=== PATIENT | female | born 1970 | race Caucasian/White ===

== ENCOUNTER 2017-10-14 21:58 | Emergency (ER) | payer OTHER ==
[~2017-10-14] VITALS: Ht 167.6 cm; Wt 77.6 kg
[~2017-10-14 21:58] MED LIST: B-CO-5 OR; CALC0.5C PO; CIPR-217 PO; FER325T PO; FURO80TA3 PO; HYDR-2601 PO; INSLANTI SC; INSLISPI SC; LISI-275 PO; LOVA20TA4 PO; OMEP20CA74 OR; PREG75CA PO; SODB650T PO
[2017-10-14 22:05] VITALS: BP 160/93
== END 2017-10-15 04:43 | disposition home or self-care (01) ==
LOC: ER 21:58
DX: S90.121A Contusion of right lesser toe(s) without damage to nail, initial encounter (principal); E11.40 Type 2 diabetes mellitus with diabetic neuropathy, unspecified; N18.6 End stage renal disease; E11.22 Type 2 diabetes mellitus with diabetic chronic kidney disease; K21.9 Gastro-esophageal reflux disease without esophagitis; I12.0 Hypertensive chronic kidney disease with stage 5 chronic kidney disease or end stage renal disease; E78.5 Hyperlipidemia, unspecified; Z79.4 Long term (current) use of insulin; X58.XXXA Exposure to other specified factors, initial encounter; Y93.89 Activity, other specified; Y92.89 Other specified places as the place of occurrence of the external cause; Y99.8 Other external cause status
CPT/HCPCS: 73630; 82962

== ENCOUNTER 2019-04-14 00:29 | Emergency (ER) | payer OTHER ==
[~2019-04-14] VITALS: Ht 165.1 cm; Wt 70.3 kg
[2019-04-14] MEDS ORDERED: SODIUM CHLORIDE 0.9% 1,000 ML IV ONE ×2 (02:45→03:03)
[2019-04-14 02:50] LABS: Basophils # (auto) 0 uL; Basophils % (auto) 0.5 % (0.0-2.0); Eosinophils # (auto) 0 uL; Eosinophils % (auto) 0.4 % (0.0-7.0); Hematocrit 38.5 % (36.0-46.0); Hemoglobin 12.5 g/dL (12.2-16.2); Lymphocytes # (auto) 0.3 uL; Lymphocytes % (auto) 5.1 % (10.0-50.0); Mean Corpuscular Hemoglobin 28.9 pg (28.0-32.0); Mean Corpuscular Hgb Conc. 32.5 g/dL (32.0-36.0); Mean Corpuscular Volume 88.9 fL (80.0-100.0); Monocytes # (auto) 0.7 uL; Monocytes % (auto) 10.8 % (0.0-12.0); Neutrophils # (auto) 5.1 uL; Neutrophils % (auto) 83.2 % (37.0-80.0); Nucleated Red Blood Cells % 0.2 %; Platelet Count (auto) 239 10^3/uL (140-450); Red Blood Cells 4.34 10^6/uL (4.0-5.20); Red Cell Distribution Width 15.9 % (11.8-14.3); White Blood Cell 6.1 10^3/uL (4.4-10.8)
[2019-04-14 02:57] LABS: Urine Amorphous Crystal FEW /hpf (None Seen); Urine Bacteria FEW /hpf (None Seen); Urine Blood 1+ /uL (Negative); Urine Hyaline Cast FEW /lpf (0 - 2); Urine Specific Gravity 1.018 (1.001-1.035); Urine WBC 8 /hpf (0 - 5)
[2019-04-14 02:57] LABS: Albumin 2.8 g/dL (3.4-5.0); BUN/Creatinine Ratio 14.1; Calcium 9.2 mg/dL (8.5-10.1)
[2019-04-14 03:11] LABS: Potassium 2.8 mmol/L (3.5-5.1)
[2019-04-14 03:24] LABS: Bilirubin, Total 0.4 mg/dL (0.2-1.0); Total Protein 6.9 g/dL (6.4-8.2)
[2019-04-14] MEDS ORDERED: metroNIDAZOLE 500 MG TAB PO ONE ×2 (04:00→07:45)
[2019-04-14] MEDS ORDERED: POTASSIUM CHL 20 Meq TABLET PO ONE (04:15)
[2019-04-14] MEDS ORDERED: LEVOFLOXACIN 500MG 100 ML IV ONE (04:15)
[2019-04-14] MEDS ORDERED: HYDROcodone-ACET 10/325MG TAB PO PRN (09:30)
[2019-04-14] MEDS ORDERED: SOD CHL 0.45% 1,000 ML IV SCH (09:30)
[2019-04-14] MEDS ORDERED: ONDANSETRON HCL 4 MG/2 ML VIAL IV PRN (09:30)
[2019-04-14] MEDS ORDERED: MORPHINE SULFATE 4 MG/ML SYR/VIAL IV PRN (09:30)
[2019-04-14] MEDS ORDERED: MORPHINE SULF INJ 2 MG/ML SYRINGE 1ML IV PRN (09:30)
[2019-04-14] MEDS ORDERED: VANCOMYCIN PER PHARMACY 0 MG IV SCH (09:30)
[2019-04-14] MEDS ORDERED: NITROGLYCERIN 0.4 MG SL TAB SL PRN (09:30)
[2019-04-14] MEDS ORDERED: TACROLIMUS 1 MG CAP PO SCH (10:00)
[2019-04-14] MEDS ORDERED: METOPROLOL TARTRATE 25 MG TAB PO SCH (10:00)
[2019-04-14] MEDS ORDERED: predniSONE 5 MG TAB PO SCH (10:00)
[2019-04-14] MEDS ORDERED: MYCOPHENOLATE 500 MG TAB PO SCH (10:00)
[2019-04-14] MEDS ORDERED: PANTOPRAZOLE 40 MG TAB PO SCH (10:00)
[2019-04-14] MEDS ORDERED: PREGABALIN CAPSULE 75 MG CAP PO SCH (10:00)
[2019-04-14] MEDS ORDERED: ASPirin 81 mg TAB PO SCH (10:00)
[2019-04-14] MEDS ORDERED: SODIUM CHLORIDE 0.9% 2,000 ML IV ONE (10:30)
[2019-04-14] MEDS ORDERED: SODIUM CHLORIDE 0.9% 1,000 ML IV SCH (10:30)
[2019-04-14] MEDS ORDERED: SEVELAMER 800 MG TAB PO SCH (12:00)
[2019-04-14 12:02] VITALS: BP 128/78
[2019-04-14] MEDS ORDERED: metroNIDAZOLE 500 MG TAB PO SCH (14:00)
[2019-04-14] MEDS ORDERED: ATORVASTATIN 20 MG TAB PO SCH (22:00)
[2019-04-15] MEDS ORDERED: cefTRIAXone 1GM/50ML D5W 50 ML IV SCH (09:00)
== END 2019-04-14 12:16 | disposition short-term general hospital (02) ==
LOC: EDBD 00:29 → ER 00:32 → UNDOADMIN 00:33 → TELE 00:33 → ER 12:16
DX: K52.9 Noninfective gastroenteritis and colitis, unspecified (principal); E87.6 Hypokalemia; E11.22 Type 2 diabetes mellitus with diabetic chronic kidney disease; I12.0 Hypertensive chronic kidney disease with stage 5 chronic kidney disease or end stage renal disease; N18.6 End stage renal disease; N17.9 Acute kidney failure, unspecified; K21.9 Gastro-esophageal reflux disease without esophagitis; E78.5 Hyperlipidemia, unspecified; Z90.710 Acquired absence of both cervix and uterus; Z99.2 Dependence on renal dialysis; Z79.4 Long term (current) use of insulin; Z94.0 Kidney transplant status
CPT/HCPCS: 36415; 74176; 80053; 81001; 83036; 83605; 83690; 83735; 84484; 85025; 87040; 87086; 87493; 93306; 96361; 96365; 99285; J1956; J7030; J7507; J7512; J7517

== ENCOUNTER 2019-08-20 11:02 | Emergency (ER) | payer OTHER ==
[~2019-08-20] VITALS: Ht 165.1 cm; Wt 69.9 kg
[2019-08-20 11:05] VITALS: BP 176/97
[2019-08-20 12:01] LABS: Albumin 3.3 g/dL (3.4-5.0); Anion Gap 5 (5-15); Blood Urea Nitrogen 15 mg/dL (7-18); Calcium 9.2 mg/dL (8.5-10.1); Carbon Dioxide 27 mmol/L (21-32); Chloride 109 mmol/L (98-107); Glucose 126 mg/dL (74-106); Magnesium 2.1 mg/dL (1.6-2.6); Potassium 4.1 mmol/L (3.5-5.1); Sodium 141 mmol/L (136-145)
[2019-08-20 12:06] LABS: Alanine Aminotransferase 16 U/L (13-56); Alkaline Phosphatase 82 U/L (45-117); Aspartate Aminotransferase 12 U/L (15-37); Bilirubin, Total 0.4 mg/dL (0.2-1.0); GFR African American 82 mL/min; GFR Non-African American 68 mL/min; Total Protein 7.2 g/dL (6.4-8.2)
== END 2019-08-20 12:27 | disposition left against medical advice (07) ==
LOC: ER 11:06
DX: R07.89 Other chest pain (principal); Z53.21 Procedure and treatment not carried out due to patient leaving prior to being seen by health care provider
CPT/HCPCS: 36415; 80053; 83735; 84443; 84484

== ENCOUNTER 2019-08-21 10:57 | Emergency (ER) | payer MEDICARE, OTHER ==
[~2019-08-21] VITALS: Ht 175.3 cm; Wt 77.1 kg
[~2019-08-21 10:57] MED LIST changes: -CIPR-217 PO; +CIPR500T4 PO
[2019-08-21 12:34] LABS: Basophils # (auto) 0 uL; Basophils % (auto) 0.5 % (0.0-2.0); Eosinophils # (auto) 0.1 uL; Eosinophils % (auto) 1.5 % (0.0-7.0); Hematocrit 38.2 % (36.0-46.0); Hemoglobin 12.2 g/dL (12.2-16.2); Lymphocytes # (auto) 0.4 uL; Lymphocytes % (auto) 5.7 % (10.0-50.0); Mean Corpuscular Hemoglobin 28.7 pg (28.0-32.0); Mean Corpuscular Volume 89.6 fL (80.0-100.0); Monocytes # (auto) 0.6 uL; Monocytes % (auto) 7.1 % (0.0-12.0); Neutrophils # (auto) 6.7 uL; Neutrophils % (auto) 85.2 % (37.0-80.0); Nucleated Red Blood Cells % 0.1 %; Platelet Count (auto) 254 10^3/uL (140-450); Red Blood Cells 4.26 10^6/uL (4.0-5.20); Red Cell Distribution Width 14.5 % (11.8-14.3); White Blood Cell 7.9 10^3/uL (4.4-10.8)
[2019-08-21 12:51] LABS: Albumin 3.3 g/dL (3.4-5.0); Anion Gap 7 (5-15); Blood Urea Nitrogen 15 mg/dL (7-18); Calcium 9.4 mg/dL (8.5-10.1); Carbon Dioxide 27 mmol/L (21-32); Chloride 109 mmol/L (98-107); Glucose 137 mg/dL (74-106); Potassium 3.5 mmol/L (3.5-5.1); Sodium 143 mmol/L (136-145)
[2019-08-21 12:57] LABS: Alanine Aminotransferase 16 U/L (13-56); Alkaline Phosphatase 80 U/L (45-117); Aspartate Aminotransferase 10 U/L (15-37); BUN/Creatinine Ratio 17.2; Bilirubin, Total 0.5 mg/dL (0.2-1.0); GFR African American 90 mL/min; GFR Non-African American 74 mL/min; Total Protein 7.2 g/dL (6.4-8.2)
[2019-08-21] MEDS ORDERED: SODIUM CHLORIDE 0.9% 1,000 ML IV ONE (15:01)
[2019-08-21] MEDS ORDERED: HYDROmorphone HCL 2 MG/ML VL IV ONE (15:15)
[2019-08-21] MEDS ORDERED: PROMETHAZINE HCL 25 MG/ML 1ML IV PRN (15:15)
[2019-08-21 16:07] LABS: Magnesium 1.9 mg/dL (1.6-2.6)
[2019-08-21 18:59] VITALS: BP 157/88
== END 2019-08-21 19:12 | disposition home or self-care (01) ==
LOC: EDBD 10:57 → ER 11:10
DX: K80.50 Calculus of bile duct without cholangitis or cholecystitis without obstruction (principal); K82.8 Other specified diseases of gallbladder; E44.1 Mild protein-calorie malnutrition; I25.2 Old myocardial infarction; I12.0 Hypertensive chronic kidney disease with stage 5 chronic kidney disease or end stage renal disease; E11.22 Type 2 diabetes mellitus with diabetic chronic kidney disease; N18.6 End stage renal disease; E78.5 Hyperlipidemia, unspecified; K21.9 Gastro-esophageal reflux disease without esophagitis; Z94.0 Kidney transplant status
CPT/HCPCS: 36415; 71046; 74176; 76705; 80053; 83690; 83735; 84443; 84484; 85025; 93005

== ENCOUNTER 2021-04-24 22:15 | Emergency (ER) | payer OTHER ==
[~2021-04-24] VITALS: Ht 172.7 cm; Wt 79.4 kg
[2021-04-24 23:06] LABS: Basophils # (auto) 0 10 ^3/uL (0-0.2); Basophils % (auto) 1.1 % (0.0-2.0); Eosinophils # (auto) 0 10 ^3/uL (0-0.8); Hematocrit 37.4 % (36.0-46.0); Hemoglobin 11.9 g/dL (12.2-16.2); Lymphocytes # (auto) 0.6 10 ^3/uL (0.4-5.4); Lymphocytes % (auto) 15.4 % (10.0-50.0); Mean Corpuscular Hemoglobin 28.2 pg (28.0-32.0); Mean Corpuscular Hgb Conc. 31.9 g/dL (32.0-36.0); Mean Corpuscular Volume 88.4 fL (80.0-100.0); Monocytes # (auto) 0.3 10 ^3/uL (0-1.3); Monocytes % (auto) 8.2 % (0.0-12.0); Neutrophils # (auto) 2.7 10 ^3/uL (1.6-8.6); Neutrophils % (auto) 74.3 % (37.0-80.0); Red Blood Cells 4.23 10^6/uL (4.0-5.20); Red Cell Distribution Width 15.8 % (11.8-14.3); White Blood Cell 3.6 10^3/uL (4.4-10.8)
[2021-04-24 23:21] LABS: Alanine Aminotransferase 21 U/L (13-56); Albumin 3.1 g/dL (3.4-5.0); Anion Gap 8 (5-15); Aspartate Aminotransferase 12 U/L (15-37); Blood Urea Nitrogen 22 mg/dL (7-18); Calcium 8.6 mg/dL (8.5-10.1); Carbon Dioxide 23 mmol/L (21-32); Chloride 109 mmol/L (98-107); GFR African American 68 mL/min; GFR Non-African American 56 mL/min; Glucose 301 mg/dL (74-106); Magnesium 1.9 mg/dL (1.6-2.6); Sodium 140 mmol/L (136-145)
[2021-04-24 23:24] LABS: INR 0.98 (0.9-1.15); Partial Thromboplastin Time 23.9 sec (23.6-33.0)
[2021-04-24 23:26] LABS: Alkaline Phosphatase 99 U/L (45-117); Bilirubin, Total 0.3 mg/dL (0.2-1.0); Total Protein 6.9 g/dL (6.4-8.2)
[2021-04-25 03:00] VITALS: BP 173/89
[2021-04-25] MEDS ORDERED: cloNIDine HCL 0.1 MG TAB PO ONE (04:15)
== END 2021-04-25 04:27 | disposition home or self-care (01) ==
LOC: EDBD 22:15 → ER 22:18
DX: R07.89 Other chest pain (principal); F41.9 Anxiety disorder, unspecified; K21.9 Gastro-esophageal reflux disease without esophagitis; E78.5 Hyperlipidemia, unspecified; I10 Essential (primary) hypertension; E11.22 Type 2 diabetes mellitus with diabetic chronic kidney disease; N18.6 End stage renal disease; Z90.710 Acquired absence of both cervix and uterus
CPT/HCPCS: 36415; 71045; 80053; 82962; 83735; 83880; 84443; 84484; 85025; 85610; 85730; 93005

== ENCOUNTER 2021-11-11 20:46 | Emergency (ER) | payer OTHER ==
[~2021-11-11] VITALS: Ht 167.6 cm; Wt 77.1 kg
[2021-11-11] MEDS ORDERED: SODIUM CHLORIDE 0.9% 1,000 ML IV ONE ×2 (22:15)
[2021-11-11] MEDS ORDERED: METOCLOPRAMIDE HCL 5MG/ml INJ 2ml VIAL IV ONE (22:15)
[2021-11-11 23:01] LABS: Urine Bacteria MANY /hpf (None Seen); Urine Blood Negative /uL (Negative); Urine Specific Gravity 1.022 (1.001-1.035); Urine WBC 56 /hpf (0 - 5)
[2021-11-11 23:55] LABS: Basophils # (auto) 0 10 ^3/uL (0-0.2); Basophils % (auto) 0.6 % (0.0-2.0); Eosinophils # (auto) 0 10 ^3/uL (0-0.8); Eosinophils % (auto) 0.4 % (0.0-7.0); Hematocrit 35.4 % (36.0-46.0); Hemoglobin 11.6 g/dL (12.2-16.2); Lymphocytes # (auto) 0.6 10 ^3/uL (0.4-5.4); Lymphocytes % (auto) 7.4 % (10.0-50.0); Mean Corpuscular Hemoglobin 28.7 pg (28.0-32.0); Mean Corpuscular Hgb Conc. 32.8 g/dL (32.0-36.0); Mean Corpuscular Volume 87.5 fL (80.0-100.0); Monocytes # (auto) 0.6 10 ^3/uL (0-1.3); Monocytes % (auto) 8.5 % (0.0-12.0); Neutrophils # (auto) 6.2 10 ^3/uL (1.6-8.6); Neutrophils % (auto) 83.1 % (37.0-80.0); Nucleated Red Blood Cells % 0.1 %; Red Blood Cells 4.05 10^6/uL (4.0-5.20); Red Cell Distribution Width 15.9 % (11.8-14.3); White Blood Cell 7.5 10^3/uL (4.4-10.8)
[2021-11-12] LABS: INR 0.97 (0.9-1.15); Partial Thromboplastin Time 22.8 sec (23.6-33.0)
[2021-11-12 00:13] LABS: Albumin 3.3 g/dL (3.4-5.0); Calcium 9.2 mg/dL (8.5-10.1); Potassium 4.8 mmol/L (3.5-5.1)
[2021-11-12 00:47] LABS: BUN/Creatinine Ratio 19.8; Bilirubin, Total 0.3 mg/dL (0.2-1.0); Total Protein 7.1 g/dL (6.4-8.2)
[2021-11-12] MEDS ORDERED: InsuLIN REG 1unit/0.01ml Soln (100units/ml) SC ONE (01:00)
[2021-11-12 02:10] VITALS: BP 145/71
[2021-11-12] MEDS ORDERED: cefTRIAXone 1GM/50ML D5W 50 ML IV ONE (02:15)
[2021-11-12] MEDS ORDERED: CEPH500C PO (02:45)
== END 2021-11-12 03:07 | disposition home or self-care (01) ==
LOC: ER 20:46
DX: E11.65 Type 2 diabetes mellitus with hyperglycemia (principal); N39.0 Urinary tract infection, site not specified; I13.2 Hypertensive heart and chronic kidney disease with heart failure and with stage 5 chronic kidney disease, or end stage renal disease; E11.22 Type 2 diabetes mellitus with diabetic chronic kidney disease; N18.6 End stage renal disease; I50.9 Heart failure, unspecified; K21.9 Gastro-esophageal reflux disease without esophagitis; I25.2 Old myocardial infarction; E78.5 Hyperlipidemia, unspecified; Z90.710 Acquired absence of both cervix and uterus; Z79.4 Long term (current) use of insulin; Z79.899 Other long term (current) drug therapy
CPT/HCPCS: 36415; 71045; 80053; 81001; 82010; 82962; 83605; 83690; 83880; 84484; 85025; 85610; 85730; 93005; 96361; 96365; 96372; 96375; 99285; J0696; J1815; J2765; J7030

== ENCOUNTER 2021-12-08 17:09 | Emergency (ER) | payer OTHER ==
[~2021-12-08] VITALS: Ht 165.1 cm; Wt 78.5 kg
[~2021-12-08 17:09] MED LIST changes: +CEPH500C PO
[2021-12-08 18:26] LABS: Basophils # (auto) 0 10 ^3/uL (0-0.2); Basophils % (auto) 1.1 % (0.0-2.0); Eosinophils # (auto) 0.2 10 ^3/uL (0-0.8); Eosinophils % (auto) 4.3 % (0.0-7.0); Hematocrit 37.2 % (36.0-46.0); Hemoglobin 11.9 g/dL (12.2-16.2); Lymphocytes # (auto) 0.5 10 ^3/uL (0.4-5.4); Lymphocytes % (auto) 12.2 % (10.0-50.0); Mean Corpuscular Hemoglobin 27.9 pg (28.0-32.0); Mean Corpuscular Hgb Conc. 32.1 g/dL (32.0-36.0); Mean Corpuscular Volume 86.9 fL (80.0-100.0); Monocytes # (auto) 0.4 10 ^3/uL (0-1.3); Monocytes % (auto) 9.8 % (0.0-12.0); Neutrophils % (auto) 72.6 % (37.0-80.0); Nucleated Red Blood Cells % 0.1 %; Red Blood Cells 4.28 10^6/uL (4.0-5.20); Red Cell Distribution Width 15.4 % (11.8-14.3); White Blood Cell 4.1 10^3/uL (4.4-10.8)
[2021-12-08] MEDS ORDERED: ONDANSETRON HCL 4 MG/2 ML VIAL IV ONE (18:45)
[2021-12-08 18:47] LABS: Albumin 3.6 g/dL (3.4-5.0); BUN/Creatinine Ratio 10.3; Calcium 9.3 mg/dL (8.5-10.1); Magnesium 1.9 mg/dL (1.6-2.6)
[2021-12-08 18:49] LABS: Bilirubin, Total 0.6 mg/dL (0.2-1.0); Total Protein 6.9 g/dL (6.4-8.2)
[2021-12-08] MEDS ORDERED: MORPHINE SULFATE 4 MG/ML SYR/VIAL IV ONE (19:30)
[2021-12-08] MEDS ORDERED: METOPROLOL SUCCINATE XL 50 MG TAB PO ONE (20:30)
[2021-12-08] MEDS ORDERED: HYDROcodone-ACET 10/325MG TAB PO ONE (20:30)
[2021-12-08] MEDS ORDERED: InsuLIN REG 1unit/0.01ml Soln (100units/ml) IV ONE (20:30)
[2021-12-08] MEDS ORDERED: GUAI100S6 PO (21:14)
[2021-12-08] MEDS ORDERED: AZIT1POW PO (21:14)
[2021-12-08] MEDS ORDERED: PROMETHAZINE W/CODEINE 5 ML ORAL SYRUP PO ONE (21:15)
[2021-12-08 21:50] VITALS: BP 136/78
== END 2021-12-08 21:58 | disposition home or self-care (01) ==
LOC: ER 17:09
DX: E11.22 Type 2 diabetes mellitus with diabetic chronic kidney disease (principal); I13.2 Hypertensive heart and chronic kidney disease with heart failure and with stage 5 chronic kidney disease, or end stage renal disease; I50.9 Heart failure, unspecified; N18.6 End stage renal disease; K21.9 Gastro-esophageal reflux disease without esophagitis; E78.5 Hyperlipidemia, unspecified; Z90.710 Acquired absence of both cervix and uterus; Z20.822 Contact with and (suspected) exposure to COVID-19
CPT/HCPCS: 36415; 71045; 80053; 82962; 83735; 83880; 84484; 85025; 85379; 87426; 93005; 96374; 96375; 99285; J1815; J2405

== ENCOUNTER 2022-01-21 23:35 | Emergency (ER) | payer OTHER ==
[~2022-01-21] VITALS: Ht 165.1 cm; Wt 81.6 kg
[2022-01-21 23:35] VITALS: BP 186/99
[~2022-01-21 23:35] MED LIST changes: +AZIT1POW PO; +GUAI100S6 PO
[2022-01-22] MEDS ORDERED: FUROSEMIDE 20 MG/2 ML VIAL IV ONE (03:45)
[2022-01-22 03:59] LABS: Basophils # (auto) 0 10 ^3/uL (0-0.2); Eosinophils # (auto) 0.1 10 ^3/uL (0-0.8); Eosinophils % (auto) 2.5 % (0.0-7.0); Hematocrit 40.1 % (36.0-46.0); Hemoglobin 12.9 g/dL (12.2-16.2); Lymphocytes # (auto) 0.8 10 ^3/uL (0.4-5.4); Lymphocytes % (auto) 16.6 % (10.0-50.0); Mean Corpuscular Hemoglobin 28.2 pg (28.0-32.0); Mean Corpuscular Hgb Conc. 32.3 g/dL (32.0-36.0); Mean Corpuscular Volume 87.2 fL (80.0-100.0); Monocytes # (auto) 0.5 10 ^3/uL (0-1.3); Monocytes % (auto) 9.6 % (0.0-12.0); Neutrophils # (auto) 3.4 10 ^3/uL (1.6-8.6); Neutrophils % (auto) 70.3 % (37.0-80.0); Nucleated Red Blood Cells % 0.2 %; White Blood Cell 4.9 10^3/uL (4.4-10.8)
[2022-01-22 04:15] LABS: Albumin 3.9 g/dL (3.4-5.0); BUN/Creatinine Ratio 14.2; Calcium 9.6 mg/dL (8.5-10.1); Magnesium 2.1 mg/dL (1.6-2.6); Potassium 4.1 mmol/L (3.5-5.1)
[2022-01-22 04:18] LABS: Bilirubin, Total 0.4 mg/dL (0.2-1.0); Total Protein 7.7 g/dL (6.4-8.2)
[2022-01-22] MEDS ORDERED: ALBUTEROL SULF 2.5 MG/0.5ML(0.5%) NEB SOLN ONE (23:14)
[2022-01-22] MEDS ORDERED: IPRATROPIUM BROM 0.5 MG/2.5ML INH SOL ONE (23:14)
== END 2022-01-22 04:19 | disposition left against medical advice (07) ==
LOC: ER 23:35
DX: E11.22 Type 2 diabetes mellitus with diabetic chronic kidney disease (principal); I13.2 Hypertensive heart and chronic kidney disease with heart failure and with stage 5 chronic kidney disease, or end stage renal disease; I50.9 Heart failure, unspecified; N18.6 End stage renal disease; K21.9 Gastro-esophageal reflux disease without esophagitis; E78.5 Hyperlipidemia, unspecified; Z90.710 Acquired absence of both cervix and uterus
CPT/HCPCS: 36415; 71045; 80053; 83735; 83880; 84484; 85025; 93970

== ENCOUNTER 2022-08-22 02:24 | Emergency (ER) | payer OTHER ==
[~2022-08-22] VITALS: Ht 165.1 cm; Wt 80.9 kg
[2022-08-22] MEDS ORDERED: SULF800T7 PO (04:11)
[2022-08-22] MEDS ORDERED: cefTRIAXone SOD 1,000 MG VL IM ONE (04:15)
[2022-08-22 04:50] VITALS: BP 164/88
== END 2022-08-22 04:51 | disposition home or self-care (01) ==
LOC: ER 02:24
DX: L03.115 Cellulitis of right lower limb (principal); I13.2 Hypertensive heart and chronic kidney disease with heart failure and with stage 5 chronic kidney disease, or end stage renal disease; E10.22 Type 1 diabetes mellitus with diabetic chronic kidney disease; N18.6 End stage renal disease; I50.9 Heart failure, unspecified; Z99.2 Dependence on renal dialysis; K21.9 Gastro-esophageal reflux disease without esophagitis; I25.2 Old myocardial infarction; E78.5 Hyperlipidemia, unspecified; Z90.710 Acquired absence of both cervix and uterus; Z79.2 Long term (current) use of antibiotics; Z79.4 Long term (current) use of insulin; Z79.899 Other long term (current) drug therapy
CPT/HCPCS: 73630; 96372; 99283; J0696

== ENCOUNTER 2024-05-24 23:39 | Emergency (ER) | payer OTHER ==
[~2024-05-24] VITALS: Ht 167.6 cm; Wt 83.6 kg
[~2024-05-24 23:39] MED LIST changes: +SULF800T23 PO
[2024-05-25 00:04] VITALS: BP 162/94; PULSE 87; RESP 16; O2SAT 98
== END 2024-05-25 01:00 | disposition left against medical advice (07) ==
LOC: ER 23:39
DX: E11.610 Type 2 diabetes mellitus with diabetic neuropathic arthropathy (principal); I13.2 Hypertensive heart and chronic kidney disease with heart failure and with stage 5 chronic kidney disease, or end stage renal disease; E11.22 Type 2 diabetes mellitus with diabetic chronic kidney disease; N18.6 End stage renal disease; I50.9 Heart failure, unspecified; E78.5 Hyperlipidemia, unspecified; I25.2 Old myocardial infarction; K21.9 Gastro-esophageal reflux disease without esophagitis; F32.9 Major depressive disorder, single episode, unspecified; Z53.29 Procedure and treatment not carried out because of patient's decision for other reasons; Z90.710 Acquired absence of both cervix and uterus; Z98.890 Other specified postprocedural states; Z79.899 Other long term (current) drug therapy
CPT/HCPCS: 82962

== ENCOUNTER 2024-12-19 12:03 | Inpatient (IN) | payer OTHER ==
[~2024-12-19] VITALS: Ht 167.6 cm; Wt 92.5 kg
--- NOTE | 2024-12-19 12:27 | ED.PDOC ---
GI ASSESSMENT HPI Comments 54 y/o F, BIBA, with PMHX of anemia, HTN, DM I, TX, ESRD, GERD, and HLD [facility] of [facility] and vomiting. EMS reports, patient is coming from home where she complains of nausea and vomiting onset, today (12/19/24). Patient relays, additional symptoms of poor appetite. Patient comments, similar symptoms in the past with DKA episode in 2019. In route to ED, patient's blood sugar read at 416 on glucometer. EMS relays, patient took 10 units of insulin prior to EMS arrival. No other symptoms or modifying factors present at this time. Time Seen by MD: 12:00 Primary Care Provider: GABRIELLE Saba Notes: Nurses Notes, Teacher Instrumental Notes, Medications, Allergies Allergies: Coded Allergies: NO KNOWN ALLERGIES (Unverified , 10/21/13) Home Meds Active Scripts Sulfamethoxazole W/Trimethopri (Trimethoprim/Sulfamethoxa) 1 Tab Tab, 1 TAB PO BID for 7 Days, #14 TAB 0 Refills Prov:LUIS FERNANDO AVILEZ 08/22/22 Guaifenesin-Codeine (Robitussin/Codeine) 10 Ml So, 5 ML PO Q6HR, #120 ML Prov:ZARINA POWELL MD 12/08/21 Azithromycin (Zithromax) 1 Gm Pow, 1 PACK PO ONCE, #1 PACK Prov:ZARINA POWELL MD 12/08/21 Cephalexin Monohydrate (Cephalexin) 500 Mg Cap, 500 MG PO Q6HR, #28 MG Prov:ARY DIAMOND MD 11/12/21 Ciprofloxacin Hcl (Ciprofloxacin Hcl) 500 Mg Tab, 1 TAB PO BID, #10 TAB Prov:JONO VILLANUEVA MD 04/07/14 Reported Medications Furosemide (Furosemide) 80 Mg Tab, 1 TAB PO BID, #180 TAB 3 Refills 04/04/14 Pregabalin (Lyrica) 75 Mg Cap, 75 MG PO DAILY, CAP 04/04/14 Insulin Glargine (Lantus) 100 Units/Ml Vial, 40 UNITS SC HS, INJ 10/22/13 Insulin Lispro (Human) (Humalog) 100 Mg/Ml Inj, SC AC, INJ 10/22/13 Hydrocodone-Acetaminophen (Hydrocodone/Acetaminophen) 1 Tab Tab, 1 TAB PO BID, TAB 10/22/13 B-Complex W/ C & Folic Acid (Abigail-Ubaldo) Tab, 1 MG OR DAILY, TAB 10/22/13 Lovastatin (Lovastatin) 20 Mg Tab, 20 MG PO DAILY, TAB 10/22/13 Lisinopril (Lisinopril) 5 Mg Tab, 5 MG PO DAILY, TAB 10/22/13 Calcitriol (Calcitriol) 0.5 Mcg Cap, 0.5 MG PO 1XW, CAP 10/22/13 Sodium Hydrogenocarbonate (SODIUM BICARBONATE) 650 Mg Tb, 650 MG PO TID 10/22/13 Ferrous Sulfate (FERROUS SULFATE) 325 Mg Tb, 325 MG PO DAILY 10/22/13 Omeprazole (PRILOSEC) 20 Mg Cap, 40 MG OR DAILY, #1 CAP 10/21/13 Information Source: Patient, Emergency Med Personnel Mode of Arrival: EMS Timing: Days Duration: Since onset Prehospital treatment: None Quality: None Vomitus: Watery Stool: Normal Severity: Moderate Recent: None Recent Hx of: Diabetes Pain Location: None Modifying Factors: Nothing Associated sign and symptoms: Nausea, Vomiting Past Medical History PAST MEDICAL HISTORY: CHF, Depression, DM, ESRD, GERD, High Lipids, HTN, TX Surgical History: , Hysterectomy Surgical History (Other): KIDNEY TRANSPLANT [employer] History: No Pertinent [employer] History Family History Family History: Family hx of DM, Family hx of Cancer Social History Smoker: Non-Smoker Alcohol: Denies ETOH Use Drugs: Denies Drug Use Lives In: Home Constitutional: denies: chills, diaphoresis, fatigue, fever, malaise, sweats, weakness, others EENTM: denies: blurred vision, double vision, ear bleeding, ear discharge, ear drainage, ear pain, ear ringing, eye pain, eye redness, hearing loss, mouth pain, mouth swelling, nasal discharge, nose bleeding, nose congestion, nose pain, photophobia, tearing, throat pain, throat swelling, voice changes, others Respiratory: denies: cough, hemoptysis, orthopnea, SOB at rest, shortness of breath, SOB with excertion, stridor, wheezing, others Cardiovascular: denies: chest pain, dizzy spells, diaphoresis, Dyspnea on exertion, edema, irregular heart beat, left arm pain, lightheadedness, palpitations, PND, syncope, others Gastrointestinal: reports: nausea, vomiting; denies: abdomen distended, abdominal pain, blood streaked bowels, constipated, diarrhea, dysphagia, difficulty swallowing, hematemesis, melena, poor appetite, poor fluid intake, rectal bleeding, rectal pain, others Genitourinary: denies: abnormal vagina bleeding, burning, dyspareunia, dysuria, flank pain, frequency, hematuria, incontinence, pain, , vagina d ischarge, urgency, others Neurological: denies: dizziness, fainting, headache, left sided numbness, left sided weakness, numbness, paresthesia, pre-existing deficit, right sided numbness, right sided weakness, seizure, speech problems, tingling, tremors, weakness, others Musculoskeletal: denies: back pain, gout, joint pain, joint swelling, muscle pain, muscle stiffness, neck pain, others Integumetry: denies: bruises, change in color, change in hair/nails, dryness, laceration, lesions, lumps, rash, wounds, others Allergic/Immunocompromised: denies: Difficulty Healing, Frequent Infections, Hives, Itching, others Hematologic/Lymphatic: denies: anemia, blood clots, easy bleeding, easy bruising, swollen glands, others Endocrine: denies: excessive hunger, excessive sweating, excessive thirst, excessive urination, flushing, intolerance to cold, intolerance to heat, unexplained weight gain, unexplained weight loss, others Psychiatric: denies: anxiety, bipolar disorder, depression, hopeless, panic disorder, schizophrenia, sleepless, suicidal, others All Other Systems: Reviewed and Negative Physical Exam General Appearance: Moderate Distress HEENT: Normal ENT Inspection, Pharynx Normal, TMs Normal Neck: Full Range of Motion, Non-Tender, Normal, Normal Inspection Respiratory: Chest Non-Tender, Lungs Clear, No Accessory Muscle Use, No Respiratory Distress, Normal Breath Sounds Cardiovascular: No Edema, No JVD, No Murmur, No Gallop, Normal Peripheral Pulses, Regular Rate/Rhythm Breast Exam: Deferred Gastrointestinal: No Organomegaly, Non Tender, No Pulsatile Mass, Normal Bowel Sounds, Soft Genitalia: Deferred Pelvic: Deferred Rectal: Deferred Extremities: No calf tenderness, Normal capillary refill, Normal inspection, Normal range of motion, Non-tender, No pedal edema Musculoskeletal : Apperance: Normal Neurologic: Alert, excel expert II-XII nml as Tested, No Motor Deficits, Normal Affect, Normal Mood, No Sensory Deficits Cerebellar Function: Normal Reflexes: Normal Skin: Dry, Normal Color, Warm Lymphatic: No Adenopathy Was a procedure done? Was a procedure done?: No GI differential Dx Differential Diagnosis: Gastritis/PUD, Gastroenteritis, Electrolyte Imbalance, Food Poisoning, Bacterial, Viral X-Ray, Labs, Meds, VS Vital Signs Date Time Temp Pulse Resp B/P (MAP) Pulse Ox O2 Delivery O2 Flow Rate FiO2 12/19/24 13:00 93 19 99 Room Air* 0 21 12/19/24 13:00 99.7 93 19 174/83 (113) 99 99.7 12/19/24 12:36 92 12/19/24 12:22 97.8 103 18 185/96 (125) 97 97.8 Lab Test 12/19/24 14:30 12/19/24 13:22 Range/Units Urine Color Pending Urine Clarity Pending Urine pH Pending Urine Specific [place] Pending Urine Protein Pending Urine Ketones Pending Urine Blood Pending Urine Nitrite Pending Urine Bilirubin Pending Urine Urobilinogen Pending Urine Leukocyte Esterase Pending Urine RBC Pending Urine Microscopic WBC Pending Urine Squamous Epithelial Cells Pending Urine Bacteria Pending Urine Glucose Pending White Blood Count 5.7 4.4-10.8 10^3/uL Red Blood Count 3.60 L 4.0-5.20 10^6/uL Hemoglobin 9.9 L 12.2-16.2 g/dL Hematocrit 30.7 L 36.0-46.0 % Mean Corpuscular Volume 85.4 80.0-100.0 fL Mean Corpuscular Hemoglobin 27.6 L 28.0-32.0 pg Mean Corpuscular Hemoglobin Concent 32.3 32.0-36.0 g/dL Red Cell Distribution Width 16.9 H 11.8-14.3 % Platelet Count 338 140-450 10^3/uL Mean Platelet Volume 9.5 6.9-10.8 fL Neutrophils (%) (Auto) 77.0 37.0-80.0 % Lymphocytes (%) (Auto) 6.6 L 10.0-50.0 % Monocytes (%) (Auto) 15.4 H 0.0-12.0 % Eosinophils (%) (Auto) 0.4 0.0-7.0 % Basophils (%) (Auto) 0.6 0.0-2.0 % Neutrophils # (Auto) 4.4 1.6-8.6 10 ^3/uL Lymphocytes # (Auto) 0.4 0.4-5.4 10 ^3/uL Monocytes # (Auto) 0.9 0-1.3 10 ^3/uL Eosinophils # (Auto) 0 0-0.8 10 ^3/uL Basophils # (Auto) 0 0-0.2 10 ^3/uL Nucleated Red Blood Cells 0.2 % Sodium Level 128 L 136-145 mmol/L Potassium Level 5.2 H 3.5-5.1 mmol/L Chloride Level 97 L 98-107 mmol/L Carbon Dioxide Level 23 20-31 mmol/L Anion Gap 8 5-15 Blood Urea Nitrogen 30 H 9-23 mg/dL Creatinine 1.61 H 0.550-1.02 mg/dL Glomerular Filtration Rate Calc 38 >90 mL/min BUN/Creatinine Ratio 18.6 10.0-20.0 Serum Glucose 369 H 74-106 mg/dL Calcium Level 10.3 8.7-10.4 mg/dL Total Bilirubin 0.7 0.2-1.0 mg/dL Aspartate Amino Transferase (AST) 10 L 13-40 U/L Alanine Aminotransferase (ALT) 9 7-40 U/L Alkaline Phosphatase 101 46-116 U/L Total Protein 8.1 5.7-8.2 g/dL Albumin 4.4 3.2-4.8 g/dL Beta-Hydroxybutyric Acid 0.692 H < 0.4 mmol/L Current Medications Medications (Trade) Dose Ordered Sig/Dottie Route Start Time Stop Time Status Last Admin Ondansetron HCl (Zofran) 4 mg ONCE ONCE IV 12/19/24 12:15 12/19/24 12:42 DC 12/19/24 13:15 Sodium Chloride 1,000 ml @ 1,000 mls/hr Q1H ONCE IV 12/19/24 12:15 12/19/24 13:14 DC 12/19/24 13:15 IV Hep-Lock was established The patient was given a 1 L bolus of normal saline The patient was given Zofran 4 mg IV push The patient continues to have some vomiting CBC is within normal limits The chemistry panel shows poor renal function with a potassium of 5.2 as well as a BUN of 30 and a creatinine 1.6 point the patient was being admitted with a diagnosis of electrolyte imbalance including hyperkalemia as well as hypochloremia Time of 1ST Reevaluation: 12:30 Reevaluation 1ST: Unchanged Patient Education/Counseling: Diagnosis, Treatment, Prognosis Family Education/Counseling: No Family Present Departure 1 Departure Time of Disposition: 14:56 Impression: Primary Impression: Electrolyte imbalance Additional Impressions: Intractable vomiting Acute renal disease Hyperkalemia Hypochloremia Disposition: ADMITTED INPATIENT Admit to: [facility] Condition: Fair Critical Care Note Critical Care Time?: No Stability Stability form required: Yes Unstable for transfer: Telemetry monitoring (Telemetry monitoring required), ED Physician Assesment (Clinical assesment) Heart Score Heart Score: Heart Score Response (Comments) Value History N/A 0 EKG N/A 0 Age N/A 0 Risk Factors N/A 0 Troponin N/A 0 Total 0 I personally scribed for ZARINA POWELL MD ([email or web address]) on 12/19/24 at 12:27. Electronically submitted by Sarai Kasper ([email or web address]). ZARINA POWELL MD December 19, 2024 12:27
[2024-12-19 13:00] VITALS: PULSE 93; RESP 19; O2SAT 99
[2024-12-19] MEDS: SODIUM CHLORIDE 0.9% 1,000 ML IV ONE (13:15)
[2024-12-19] MEDS: ONDANSETRON HCL 4 MG/2 ML VIAL IV ONE ×2 (13:15→16:05)
[2024-12-19 13:41] LABS: Basophils # (auto) 0 10 ^3/uL (0-0.2); Basophils % (auto) 0.6 % (0.0-2.0); Eosinophils # (auto) 0 10 ^3/uL (0-0.8); Eosinophils % (auto) 0.4 % (0.0-7.0); Hematocrit 30.7 % (36.0-46.0); Hemoglobin 9.9 g/dL (12.2-16.2); Lymphocytes # (auto) 0.4 10 ^3/uL (0.4-5.4); Lymphocytes % (auto) 6.6 % (10.0-50.0); Mean Corpuscular Hemoglobin 27.6 pg (28.0-32.0); Mean Corpuscular Hgb Conc. 32.3 g/dL (32.0-36.0); Mean Corpuscular Volume 85.4 fL (80.0-100.0); Monocytes # (auto) 0.9 10 ^3/uL (0-1.3); Monocytes % (auto) 15.4 % (0.0-12.0); Neutrophils # (auto) 4.4 10 ^3/uL (1.6-8.6); Nucleated Red Blood Cells % 0.2 %; Platelet Count (auto) 338 10^3/uL (140-450); Red Cell Distribution Width 16.9 % (11.8-14.3); White Blood Cell 5.7 10^3/uL (4.4-10.8)
[2024-12-19 13:58] LABS: Albumin 4.4 g/dL (3.2-4.8); Alkaline Phosphatase 101 U/L (46-116); Anion Gap 8 (5-15); BUN/Creatinine Ratio 18.6 (10.0-20.0); Bilirubin, Total 0.7 mg/dL (0.2-1.0); Calcium 10.3 mg/dL (8.7-10.4); Carbon Dioxide 23 mmol/L (20-31); Potassium 5.2 mmol/L (3.5-5.1); Sodium 128 mmol/L (136-145); Total Protein 8.1 g/dL (5.7-8.2)
[2024-12-19 13:59] LABS: Alanine Aminotransferase 9 U/L (7-40); Aspartate Aminotransferase 10 U/L (13-40); Blood Urea Nitrogen 30 mg/dL (9-23); Chloride 97 mmol/L (98-107); Glucose 369 mg/dL (74-106)
[2024-12-19 14:52] LABS: Urine Bacteria None Seen /hpf (None Seen)
[2024-12-19 15:08] LABS: Urine Blood Negative /uL (Negative); Urine Clarity Clear (Clear); Urine Color Light-Yellow (Yellow); Urine Protein, UAD 1+ (Negative); Urine Specific Gravity 1.018 (1.001-1.035); Urine Squamous Epithelial Cell FEW /hpf (<5); Urine Urobilinogen Normal (Negative); Urine WBC 2 /HPF (0-5); Urine pH 5.5 (5.0-9.0)
[2024-12-19 19:20] VITALS: PULSE 88; RESP 19; O2SAT 97
[2024-12-19] MEDS ORDERED: DEXTROSE (50%) 50ML SYRG IV PRN (22:15)
[2024-12-19] MEDS: InsuLIN REG 1unit/0.01ml Soln (100units/ml) SC SCH (22:27)
[2024-12-19] MEDS: ACCU-CHEK COMFORT CURVE STRIP VI SCH (22:28)
[2024-12-19] MEDS: LABETALOL HCL 20 MG/4 ML VL IV ONE (22:28)
[2024-12-19 22:51] LABS: Phosphorus 2.8 mg/dL (2.4-5.1)
--- NOTE | 2024-12-19 23:02 | DVHHPRES ---
History of Present Illness Resident Creating Document: RUTHANN NAIK RESIDENT History of Present Illness Mrs. Ochoa is a 54-year-old female with PMH/PSHx of ESRD status post kidney transplant in 2013 on prednisolone, mycophenolate, tacrolimus, history of diabetes mellitus type 1, hypertension, GERD, CAD with PR 2019-no CIARA, left lower extremity osteomyelitis 1 year ago, chronic nonhealing lower extremity diabetic foot wounds, history of splenic abscess and peritonitis and DKA in 2019 presented to the ER with a chief complaint of nausea, vomiting for a day along with uncontrolled blood pressure. She reports that her insulin pump sensor went bad, and she has been experiencing nausea, had 2 episodes of vomiting, no hemoptysis or hematemesis for the past day. She took 10 units of insulin prior to coming to the ER. She checked her glucose and blood pressure at home, which were elevated and she decided to come to the ER. Patient was recently admitted in October and [facility] for infected foot wounds where right arm PICC line was placed and she was started on IV daptomycin, IV Rocephin which was switched earlier this week to some other IV antibiotic use the patient does not remember. On arrival to the ER, patient had low-grade fever 99.7 F, pulse 103 bpm, blood pressure 185/96, saturating 97 on room air. H&H 9.9/36. Ketones 0.6. Anion gap 8. Serum glucose 369. PMH/PSH: ESRD status post kidney transplant in 2013 on prednisolone, my cophenolate, tacrolimus, history of diabetes mellitus type 1, hypertension, GERD, CAD with PR 2019-no CIARA, left lower extremity osteomyelitis 1 year ago, chronic nonhealing lower extremity diabetic foot wounds, history of splenic abscess and peritonitis and DKA in 2019 Social history: Lives with , denies smoking/drinking/illicit drug use Home medications: Metoprolol 25 mg b.i.d., aspirin, Plavix, prednisolone, mycophenolate, tacrolimus, IV antibiotic (unknown) Patient seen and examined in the ER. Bilateral foot diabetic wounds, draining purulent material. Left lower extremity is warm. Smoke: No ALCOHOL: none Drugs: None Lives: with Family Review of Systems Constitutional: Yes: Weakness Gastrointestinal: Nausea, Vomiting Musculoskeletal: leg pain Skin: Lesions Allergies: Coded Allergies: NO KNOWN ALLERGIES (Unverified , 10/21/13) Medications Current Medications Medications Dose Ordered Sig/Dottie Route Start Time Stop Time Status Last Admin Dose Admin Diagnostic Test (Pha) 1 strip ACHS 12/19/24 22:15 12/19/24 22:28 1 STRIP Insulin Human Regular HS SC 12/19/24 22:15 12/19/24 22:27 6 UNITS Insulin Human Regular AC SC 12/20/24 07:00 Dextrose 50 ml UD PRN IV 12/19/24 22:15 Exam Vital Signs Vital Signs Date Time Temp Pulse Resp B/P (MAP) Pulse Ox O2 Delivery O2 Flow Rate FiO2 12/19/24 22:28 86 180/103 12/19/24 19:20 19 97 Room Air* 0 21 12/19/24 19:15 98.2 98.2 Exam Patient lying in bed, in no acute distress. Patient had a right arm PICC line General: Well-built, afebrile, palor, mucosae are moist Cardiovascular: Regular S1 and S2. No murmurs, gallops or rubs. No JVD elevation. No pedal edema Respiratory: Normal B/L air entry on room air. Clear lung sounds on auscultation Abdomen: Soft, nontender, nondistended, normoactive bowel sounds, no rebound tenderness, no organomegaly, no masses Genitourinary: Deferred MSK/skin: Mobilizes 4 limbs. Left lower extremities warm, has 2+ pitting edema on left lower extremity. Bilateral foot wounds, draining purulent substance Neurological: No motor, no sensitive deficits, normal speech. Pupils are isocoric and reactive. Psych/Mental Status: A/Ox3 Labs/Xrays Labs Test 12/19/24 22:34 12/19/24 22:09 12/19/24 14:30 12/19/24 13:22 Range/Units POC Glucose 294 H 70-106 mg/dl Urine Color Light-yellow Yellow Urine Clarity Clear Clear Urine pH 5.5 5.0-9.0 Urine Specific [place] 1.018 1.001-1.035 Urine Protein 1+ H Negative Urine Ketones 1+ H Negative Urine Blood Negative Negative /uL Urine Nitrite Negative Negative Urine Bilirubin Negative Negative Urine Urobilinogen Normal Negative mg/dL Urine Leukocyte Esterase Negative Negative /uL Urine RBC 1 0 - 4 /hpf Urine Microscopic WBC 2 0-5 /HPF Urine Squamous Epithelial Cells Few <5 /hpf Urine Bacteria None seen None Seen /hpf Urine Glucose 3+ H Normal mg/dL White Blood Count 5.7 4.4-10.8 10^3/uL Red Blood Count 3.60 L 4.0-5.20 10^6/uL Hemoglobin 9.9 L 12.2-16.2 g/dL Hematocrit 30.7 L 36.0-46.0 % Mean Corpuscular Volume 85.4 80.0-100.0 fL Mean Corpuscular Hemoglobin 27.6 L 28.0-32.0 pg Mean Corpuscular Hemoglobin Concent 32.3 32.0-36.0 g/dL Red Cell Distribution Width 16.9 H 11.8-14.3 % Platelet Count 338 140-450 10^3/uL Mean Platelet Volume 9.5 6.9-10.8 fL Neutrophils (%) (Auto) 77.0 37.0-80.0 % Lymphocytes (%) (Auto) 6.6 L 10.0-50.0 % Monocytes (%) (Auto) 15.4 H 0.0-12.0 % Eosinophils (%) (Auto) 0.4 0.0-7.0 % Basophils (%) (Auto) 0.6 0.0-2.0 % Neutrophils # (Auto) 4.4 1.6-8.6 10 ^3/uL Lymphocytes # (Auto) 0.4 0.4-5.4 10 ^3/uL Monocytes # (Auto) 0.9 0-1.3 10 ^3/uL Eosinophils # (Auto) 0 0-0.8 10 ^3/uL Basophils # (Auto) 0 0-0.2 10 ^3/uL Nucleated Red Blood Cells 0.2 % Phosphorus Level 2.8 2.4-5.1 mg/dL Magnesium Level 2.0 1.6-2.6 mg/dL Triglycerides Level 72 < 150 mg/dL Cholesterol Level 118 < 200 mg/dL LDL Cholesterol 78 < 100 mg/dL HDL Cholesterol 24 L 40-59 mg/dL Beta-Hydroxybutyric Acid 0.692 H < 0.4 mmol/L Assessment/Plan Assessment/Plan Hypertensive crisis Uncontrolled diabetes mellitus type 1-hemoglobin A1c 6.4 Sepsis due to Diabetic foot with bilateral purulent foot wounds, rule out osteomyelitis Left lower extremity osteomyelitis 1 year ago Chronic nonhealing diabetic foot wound ESRD status post kidney transplant in 2013 on prednisolone, mycophenolate, tacrolimus, hypertension GERD CAD with PR 2019-no CIARA Anemia Hyponatremia LAINE likely vasomotor mediated superimposed on probable CKD History of splenic abscess and peritonitis History of DKA in 2018 Plan: IV labetalol 5 mg push administered by the ER physician, continue home antihypertensives metoprolol 25 mg b.i.d. started nifedipine 30 mg daily Holding patient's immunosuppressant therapy with prednisolone 5 mg, mycoph enolate, tacrolimus given probable sepsis Follow up with left lower extremity MRI Started IV Zyvox and IV meropenem, IV fluids. Patient does not remember her antibiotic regimen, previously was taking IV daptomycin and ceftriaxone Continue home medication aspirin and hold Plavix Moderate sliding scale, Lantus 20 units HS daily Podiatry consulted, wound care consulted, consulted Nephrology Follow up with blood culture, wound culture Continue IV antibiotic regimen, patient does not remember Follow up with the A1c, microalbumin, urine studies Lovenox 40 mg sc daily Pantoprazole 40 mg daily Plan discussed with patient in which all questions have been answered Goals of care discussed for more than 24 minutes, full code status Case discussed with Dr. Mcdonald Plan discussed with: Patient My Orders Orders - RUTHANN NAIK Procedure Category Date Status Time Glucose Blood PHA 12/19/24 In Process (Accu-Chek Comfort 22:15 Insulin R (Human) PHA 12/19/24 In Process (Insulin R) 22:15 Insulin R (Human) PHA 12/20/24 In Process (Insulin R) 07:00 Dextrose 50% Syringe PHA 12/19/24 In Process 22:15 Electrocardigram EKG 12/19/24 Logged 22:12 Electrocardigram EKG 12/19/24 Logged 23:12 Electrocardigram EKG 12/20/24 Logged 01:12 Date of Service: December 19, 2024 Billing Provider: SOPHIE MCDONALD MD Common Visit Codes: [id number] INP/OBS CARE (HIGH) RUTHANN NAIK December 19, 2024 23:02
[2024-12-19 23:45] LABS: Alkaline Phosphatase 91 U/L (46-116)
[2024-12-19 23:46] LABS: Albumin 4.1 g/dL (3.2-4.8); Anion Gap 9 (5-15); BUN/Creatinine Ratio 16.8 (10.0-20.0); Bilirubin, Total 0.6 mg/dL (0.2-1.0); Calcium 9.9 mg/dL (8.7-10.4); Carbon Dioxide 21 mmol/L (20-31); Chloride 98 mmol/L (98-107); Potassium 4.7 mmol/L (3.5-5.1); Total Protein 7.4 g/dL (5.7-8.2)
[2024-12-19 23:55] LABS: Alanine Aminotransferase < 9 U/L (7-40); Aspartate Aminotransferase 12 U/L (13-40); Blood Urea Nitrogen 25 mg/dL (9-23); Glucose 310 mg/dL (74-106); Sodium 128 mmol/L (136-145)
[2024-12-20] MEDS: guaiFENesin-DM 100/10mg/5ml SYR PO ONE (02:02)
[2024-12-20] MEDS ORDERED: VANCOMYCIN PER PHARMACY 0 MG IV SCH (02:15)
[2024-12-20] MEDS ORDERED: ONDANSETRON HCL 4 MG/2 ML VIAL IV PRN (02:15)
[2024-12-20] MEDS: ASPirin-EC 81 mg tab PO ONE (03:49)
[2024-12-20] MEDS: METOPROLOL TARTRATE 25 MG TAB PO ONE (03:49)
[2024-12-20] MEDS: PANTOPRAZOLE 40 MG/10 ML VIAL INJ IV ONE (03:49)
[2024-12-20] MEDS: NIFEdipine ER 30 MG TAB PO ONE (03:50)
[2024-12-20] MEDS: SODIUM CHLORIDE 0.9% 1,000 ML IV SCH (03:50)
[2024-12-20] MEDS: ATORVASTATIN 20 MG TAB PO ONE (03:50)
[2024-12-20] MEDS: VANCOMYCIN 1.5GM/300ML 300 ML IV ONE (03:50)
[2024-12-20 03:53] LABS: Basophils # (auto) 0 10 ^3/uL (0-0.2); Basophils % (auto) 0.6 % (0.0-2.0); Eosinophils # (auto) 0 10 ^3/uL (0-0.8); Eosinophils % (auto) 0.3 % (0.0-7.0); Hemoglobin 9.3 g/dL (12.2-16.2); Lymphocytes # (auto) 0.5 10 ^3/uL (0.4-5.4); Lymphocytes % (auto) 8.7 % (10.0-50.0); Mean Corpuscular Volume 84.5 fL (80.0-100.0); Monocytes % (auto) 17.4 % (0.0-12.0); Neutrophils # (auto) 4.3 10 ^3/uL (1.6-8.6); Nucleated Red Blood Cells % 0.1 %; Platelet Count (auto) 341 10^3/uL (140-450); Red Blood Cells 3.43 10^6/uL (4.0-5.20); Red Cell Distribution Width 16.9 % (11.8-14.3); White Blood Cell 5.9 10^3/uL (4.4-10.8)
[2024-12-20 04:08] LABS: INR 1.12 (0.9-1.15); Partial Thromboplastin Time 26.5 SEC (24.5-34.5); Prothrombin Time 11.7 sec (9.3-11.8)
[2024-12-20] MEDS: INSULIN LANTUS (GLARGINE) 1 /0.01ml (100units/ml) SC ONE (04:10)
[2024-12-20 04:16] LABS: Alanine Aminotransferase 11 U/L (7-40); Albumin 4.2 g/dL (3.2-4.8); Alkaline Phosphatase 98 U/L (46-116); Anion Gap 10 (5-15); Calcium 10.3 mg/dL (8.7-10.4); Carbon Dioxide 24 mmol/L (20-31); Potassium 4.6 mmol/L (3.5-5.1); Total Protein 7.7 g/dL (5.7-8.2)
[2024-12-20 04:17] LABS: Bilirubin, Total 0.7 mg/dL (0.2-1.0)
[2024-12-20 04:20] LABS: Aspartate Aminotransferase 11 U/L (13-40); Blood Urea Nitrogen 26 mg/dL (9-23); Chloride 97 mmol/L (98-107); Glucose 258 mg/dL (74-106); Sodium 131 mmol/L (136-145)
[2024-12-20] MEDS: MEROPENEM 1GM IVPB 50 ML IV SCH (04:22)
[2024-12-20 04:28] LABS: CRP High Sensitivity > 20.00 mg/dL (<1.0)
[2024-12-20 05:09] LABS: Erythrocyte Sedimentation Rate 110 mm/hr (0-20)
--- NOTE | 2024-12-20 06:28 | ECG ---
[facility] [place] Test Date: 2024-12-19 Test Time: 23:14:32 Pat Name: SÁNCHEZ VAZQUEZ Department: ED Room: [address] [place] [address] Gender: F Pulp Beater: MARICHUY : 1970 Requested By: RUTHANN NAIK Order Number: [id number] Reading MD: Moses Mitchell Measurements Intervals [place] Rate: 88 P: 26 RI: 127 QRS: -28 QRSD: 95 T: 43 QT: 371 QTc: 449 Interpretive Statements Sinus rhythm Probable left atrial enlargement Borderline left axis deviation Electronically Signed On 12-20-2024 9:23:14 PDT by Moses Mitchell Please click the below link to view image of tracing.
[2024-12-20] MEDS: InsuLIN REG 1unit/0.01ml Soln (100units/ml) SC SCH ×2 (06:53→22:00)
--- NOTE | 2024-12-20 07:22 | DVHINCON2 ---
Date of service: December 20, [address] Victor Manuel Irwin Reason for Consultation Renal transplant History of Present Illness 54 Y/O F with history fo renal transplant in 2013, DM type I, HTN, CAD, GERD and left lower extremity osteomyelitis, and chronic nonhealing diabetic foot wounds presented with chief complaint of nausea, and vomiting. She reports that her insulin pump sensor went bad. She took 10 units of insulin prior to coming to the ER. She checked her glucose and blood pressure at home, which were elevated and she decided to come to the ER. she was recently hospitalized at [facility] for infected foot wounds where right arm PICC line was placed and she was started on IV daptomycin, IV Rocephin which was switched earlier this week to some other IV antibiotic use the patient does not remember. In ER patient is febrile T max of 99.7 , HR: 103, and initial BP is 185/96 mmHg. labs significant for Na: 128, K: 5.2, Cr: 1.61 mg/dl, Glu: 369, and Hb: 9.9 g/dl. She was started on vancomycin and Meropenem, and IV fluids. Immunosuppression meds have been held. Nephrology consulted for renal transplant management. Past Medical History DM type I, HTN, CAD, GERD , Renal transplant, ESRD prior to transplant Past Surgical History Renal transplant Allergies: Coded Allergies: NO KNOWN ALLERGIES (Unverified , 10/21/13) Home Meds Active Scripts Sulfamethoxazole W/Trimethopri (Trimethoprim/Sulfamethoxa) 1 Tab Tab, 1 TAB PO BID for 7 Days, #14 TAB 0 Refills Prov:LUIS FERNANDO AVILEZ 08/22/22 Guaifenesin-Codeine (Robitussin/Codeine) 10 Ml So, 5 ML PO Q6HR, #120 ML Prov:VICTOR MANUEL IRWIN MD 12/08/21 Azithromycin (Zithromax) 1 Gm Pow, 1 PACK PO ONCE, #1 PACK Prov:VICTOR MANUEL IRWIN MD 12/08/21 Cephalexin Monohydrate (Cephalexin) 500 Mg Cap, 500 MG PO Q6HR, #28 MG Prov:ARY DIAMOND MD 11/12/21 Ciprofloxacin Hcl (Ciprofloxacin Hcl) 500 Mg Tab, 1 TAB PO BID, #10 TAB Prov:JONO VILLANUEVA MD 8/18/14 Reported Medications Furosemide (Furosemide) 80 Mg Tab, 1 TAB PO BID, #180 TAB 3 Refills 04/04/14 Pregabalin (Lyrica) 75 Mg Cap, 75 MG PO DAILY, CAP 04/04/14 Insulin Glargine (Lantus) 100 Units/Ml Vial, 40 UNITS SC HS, INJ 10/22/13 Insulin Lispro (Human) (Humalog) 100 Mg/Ml Inj, SC AC, INJ 10/22/13 Hydrocodone-Acetaminophen (Hydrocodone/Acetaminophen) 1 Tab Tab, 1 TAB PO BID, TAB 10/22/13 B-Complex W/ C & Folic Acid (Abigail-Ubaldo) Tab, 1 MG OR DAILY, TAB 10/22/13 Lovastatin (Lovastatin) 20 Mg Tab, 20 MG PO DAILY, TAB 10/22/13 Lisinopril (Lisinopril) 5 Mg Tab, 5 MG PO DAILY, TAB 10/22/13 Calcitriol (Calcitriol) 0.5 Mcg Cap, 0.5 MG PO 1XW, CAP 10/22/13 Sodium Hydrogenocarbonate (SODIUM BICARBONATE) 650 Mg Tb, 650 MG PO TID 10/22/13 Ferrous Sulfate (FERROUS SULFATE) 325 Mg Tb, 325 MG PO DAILY 10/22/13 Omeprazole (PRILOSEC) 20 Mg Cap, 40 MG OR DAILY, #1 CAP 10/21/13 Current Medications Current Medications Medications (Trade) Dose Ordered Sig/Dottie Route PRN Reason Start Time Stop Time Status Last Admin Diagnostic Test (Pha) (Accu-Chek Comfort Curve T) 1 strip ACHS 12/19/24 22:15 12/20/24 06:54 Insulin Human Regular (InsuLIN R) HS SC 12/19/24 22:15 12/19/24 22:27 Insulin Human Regular (InsuLIN R) AC SC 12/20/24 07:00 12/20/24 06:53 Dextrose 50 ml UD PRN IV Blood Sugar LESS THAN 60 12/19/24 22:15 Nifedipine (Procardia Xl (Time-Release)) 30 mg DAILY PO 12/20/24 10:00 Vancomycin HCl 0 ml @ 0 mls/hr UD IV 12/20/24 02:15 12/20/24 04:40 DC Meropenem 50 ml @ 17 mls/hr Q8HR IV 12/20/24 02:15 12/20/24 04:22 Aspirin (Ecotrin Enteric Coated Tablet) 81 mg DAILY PO 12/20/24 10:00 Insulin Glargine (Lantus) 20 units HS SC 12/20/24 22:00 Sodium Chloride 1,000 ml @ 100 mls/hr Q10H IV 12/20/24 02:15 12/20/24 03:50 Metoprolol Tartrate (Lopressor Tablet) 25 mg BID PO 12/20/24 10:00 Pantoprazole Sodium (Protonix) 40 mg DAILY IV 12/20/24 10:00 Enoxaparin Sodium (Lovenox) 30 mg DAILY SC 12/20/24 10:00 UNV Ondansetron HCl (Zofran) 4 mg Q4HPRN PRN IV NAUSEA / VOMITING 12/20/24 02:15 Atorvastatin Calcium (Lipitor) 40 mg HS PO 12/20/24 22:00 Linezolid 300 ml @ 150 mls/hr Q12HR IV 12/20/24 10:00 UNV Family History: Patient reports no known family medical history. Review of Systems as per HPI, all other systems were reviewed and are negative H&P Exam Vital Signs/I&O Vital Sign Date Time Temp Pulse Resp B/P (MAP) Pulse Ox O2 Delivery O2 Flow Rate FiO2 12/20/24 06:00 98.7 73 19 97 98.7 12/20/24 04:26 137/77 12/19/24 19:20 Room Air* 0 21 Intake and Output 12/19/24 12/20/24 18:59 06:59 Intake Total 334 ml Balance 334 ml Intake IV Total 334 ml Physical Exam Gen: NAD, AAOx3 HEENT: NC, AT Lungs: CTA b/l Cardiac: RRR, no murmur Abd: soft, no tenderness Ext: no edema Neuro: no focal deficits Labs/Diagnostic Data Labs/Diagnostic Data Laboratory Tests Test 12/20/24 06:38 12/20/24 03:33 12/20/24 03:30 12/19/24 22:34 Range/Units POC Glucose 229 H 70-106 mg/dl Thyroid Stimulating Hormone (TSH) 1.12 0.55-4.78 uIU/mL White Blood Count 5.9 4.4-10.8 10^3/uL Red Blood Count 3.43 L 4.0-5.20 10^6/uL Hemoglobin 9.3 L 12.2-16.2 g/dL Hematocrit 29.0 L 36.0-46.0 % Mean Corpuscular Volume 84.5 80.0-100.0 fL Mean Corpuscular Hemoglobin 27.0 L 28.0-32.0 pg Mean Corpuscular Hemoglobin Concent 32.0 32.0-36.0 g/dL Red Cell Distribution Width 16.9 H 11.8-14.3 % Platelet Count 341 140-450 10^3/uL Mean Platelet Volume 9.1 6.9-10.8 fL Neutrophils (%) (Auto) 73.0 37.0-80.0 % Lymphocytes (%) (Auto) 8.7 L 10.0-50.0 % Monocytes (%) (Auto) 17.4 H 0.0-12.0 % Eosinophils (%) (Auto) 0.3 0.0-7.0 % Basophils (%) (Auto) 0.6 0.0-2.0 % Neutrophils # (Auto) 4.3 1.6-8.6 10 ^3/uL Lymphocytes # (Auto) 0.5 0.4-5.4 10 ^3/uL Monocytes # (Auto) 1.0 0-1.3 10 ^3/uL Eosinophils # (Auto) 0 0-0.8 10 ^3/uL Basophils # (Auto) 0 0-0.2 10 ^3/uL Nucleated Red Blood Cells 0.1 % Erythrocyte Sedimentation Rate 110 H 0-20 mm/hr Prothrombin Time 11.7 9.3-11.8 sec Prothrombin Time INR 1.12 0.9-1.15 Activated Partial Thromboplast Time 26.5 24.5-34.5 SEC Sodium Level 131 L 128 L 136-145 mmol/L Potassium Level 4.6 4.7 3.5-5.1 mmol/L Chloride Level 97 L 98 98-107 mmol/L Carbon Dioxide Level 24 21 20-31 mmol/L Anion Gap 10 9 5-15 Blood Urea Nitrogen 26 H 25 H 9-23 mg/dL Creatinine 1.62 H 1.49 H 0.550-1.02 mg/dL Glomerular Filtration Rate Calc 38 42 >90 mL/min BUN/Creatinine Ratio 16.0 16.8 10.0-20.0 Serum Glucose 258 H 310 H 74-106 mg/dL Lactic Acid Level 1.0 0.4-2.0 mmol/L Calcium Level 10.3 9.9 8.7-10.4 mg/dL Magnesium Level 2.0 1.6-2.6 mg/dL Total Bilirubin 0.7 0.6 0.2-1.0 mg/dL Aspartate Amino Transferase (AST) 11 L 12 L 13-40 U/L Alanine Aminotransferase (ALT) 11 < 9 7-40 U/L Alkaline Phosphatase 98 91 46-116 U/L C-Reactive Protein High Sensitivity > 20.00 H <1.0 mg/dL Total Protein 7.7 7.4 5.7-8.2 g/dL Albumin 4.2 4.1 3.2-4.8 g/dL Test 12/19/24 22:09 12/19/24 15:46 12/19/24 14:30 12/19/24 13:22 Range/Units POC Glucose 294 H 286 H 70-106 mg/dl Urine Color Light-yellow Yellow Urine Clarity Clear Clear Urine pH 5.5 5.0-9.0 Urine Specific [place] 1.018 1.001-1.035 Urine Protein 1+ H Negative Urine Ketones 1+ H Negative Urine Blood Negative Negative /uL Urine Nitrite Negative Negative Urine Bilirubin Negative Negative Urine Urobilinogen Normal Negative mg/dL Urine Leukocyte Esterase Negative Negative /uL Urine RBC 1 0 - 4 /hpf Urine Microscopic WBC 2 0-5 /HPF Urine Squamous Epithelial Cells Few <5 /hpf Urine Bacteria None seen None Seen /hpf Urine Glucose 3+ H Normal mg/dL White Blood Count 5.7 4.4-10.8 10^3/uL Red Blood Count 3.60 L 4.0-5.20 10^6/uL Hemoglobin 9.9 L 12.2-16.2 g/dL Hematocrit 30.7 L 36.0-46.0 % Mean Corpuscular Volume 85.4 80.0-100.0 fL Mean Corpuscular Hemoglobin 27.6 L 28.0-32.0 pg Mean Corpuscular Hemoglobin Concent 32.3 32.0-36.0 g/dL Red Cell Distribution Width 16.9 H 11.8-14.3 % Platelet Count 338 140-450 10^3/uL Mean Platelet Volume 9.5 6.9-10.8 fL Neutrophils (%) (Auto) 77.0 37.0-80.0 % Lymphocytes (%) (Auto) 6.6 L 10.0-50.0 % Monocytes (%) (Auto) 15.4 H 0.0-12.0 % Eosinophils (%) (Auto) 0.4 0.0-7.0 % Basophils (%) (Auto) 0.6 0.0-2.0 % Neutrophils # (Auto) 4.4 1.6-8.6 10 ^3/uL Lymphocytes # (Auto) 0.4 0.4-5.4 10 ^3/uL Monocytes # (Auto) 0.9 0-1.3 10 ^3/uL Eosinophils # (Auto) 0 0-0.8 10 ^3/uL Basophils # (Auto) 0 0-0.2 10 ^3/uL Nucleated Red Blood Cells 0.2 % Sodium Level 128 L 136-145 mmol/L Potassium Level 5.2 H 3.5-5.1 mmol/L Chloride Level 97 L 98-107 mmol/L Carbon Dioxide Level 23 20-31 mmol/L Anion Gap 8 5-15 Blood Urea Nitrogen 30 H 9-23 mg/dL Creatinine 1.61 H 0.550-1.02 mg/dL Glomerular Filtration Rate Calc 38 >90 mL/min BUN/Creatinine Ratio 18.6 10.0-20.0 Serum Glucose 369 H 74-106 mg/dL Hemoglobin A1c 6.4 H <5.7 % A1C Serum Osmolality 292 278-298 mOsm/kg Calcium Level 10.3 8.7-10.4 mg/dL Phosphorus Level 2.8 2.4-5.1 mg/dL Magnesium Level 2.0 1.6-2.6 mg/dL Total Bilirubin 0.7 0.2-1.0 mg/dL Aspartate Amino Transferase (AST) 10 L 13-40 U/L Alanine Aminotransferase (ALT) 9 7-40 U/L Alkaline Phosphatase 101 46-116 U/L Total Protein 8.1 5.7-8.2 g/dL Albumin 4.4 3.2-4.8 g/dL Triglycerides Level 72 < 150 mg/dL Cholesterol Level 118 < 200 mg/dL LDL Cholesterol 78 < 100 mg/dL HDL Cholesterol 24 L 40-59 mg/dL Lipase 27 12-53 U/L Vitamin B12 Level 989 H 211-911 pg/mL Vitamin D 25-Hydroxy 92.2 30.0-100 ng/mL Beta-Hydroxybutyric Acid 0.692 H < 0.4 mmol/L Thyroid Stimulating Hormone (TSH) 0.83 0.55-4.78 uIU/mL Assessment Assessment: LAINE s/p Renal transplant Sepsis secondary to diabetic foot infection/? Osteomyelitis DM type I with hyperglycemia Hyponatremia Hyperkalemia, resolved HTN CAD GERD Plan: Resume Prograf 2 mg PO BID, and prednisone 5 mg daily will resume MMF tomorrow if patient remains stable patient will have someone bring in her immunosuppression meds to double check the dosage. continue NS at 100 cc/h continue Metoprolol 25 mg BID, and nifedipine 30 mg daily continue IV antibiotics rec ID consult strict I&Os Plan discussed with: Patient AMERICO JEFFERY MD December 20, 2024 07:22
[2024-12-20 07:30] VITALS: PULSE 82; RESP 10; O2SAT 95
[2024-12-20] MEDS: predniSONE 5 MG TAB PO ONE (07:48)
[2024-12-20 08:11] LABS: Protein, Urine 104.1 mg/dL (1-14)
[2024-12-20 08:14] LABS: Amphetamine Screen, Urine Neg (NEGATIVE); Barbiturate Scree,Urine Neg (NEGATIVE); Benzodiazephine Screen, Urine Neg (NEGATIVE); Cannabinoid Screen, Urine Neg (NEGATIVE); Cocaine Screen, Urine Neg (NEGATIVE); Creatinine, Urine 74.78 mg/dL (30.0-125.0); Opiate Scree,Urine Neg (NEGATIVE); Phencyclidine Screen, Urine Neg (NEGATIVE); Urine Protein/Creatinine Ratio 1.39
[2024-12-20] MEDS ORDERED: ENOXAPARIN SOD 30 MG/0.3 ML SYRINGE SC SCH (10:00)
[2024-12-20] MEDS: LINEZOLID 600MG/300ML 300 ML IV SCH (10:42)
[2024-12-20] MEDS: ENOXAPARIN SOD 40 MG/0.4 ML SYRINGE SC SCH (10:42)
[2024-12-20] MEDS: ASPirin-EC 81 mg tab PO SCH (10:42)
--- NOTE | 2024-12-20 10:44 | DVH ---
EXAM: US BILAT LOWER DVT Clinical History: Rule out DVT Comparison: BI LOWER DVT on DOS: 01/22/22, BLDVT on DOS: 01/21/22 Technique: Duplex Doppler evaluation of the deep venous systems of both lower extremities from the co mmon femoral veins to the popliteal veins including color Doppler and spectral/pulsed waveform analys is was performed. Findings: RIGHT SIDE: The common femoral vein demonstrates appropriate compressibility and waveform variability. There is compressibility/patency of the great saphenous vein at the proximal thigh. The femoral vein demonstrates appropriate compressibility and waveform variability. The deep femoral vein demonstrates appropriate compressibility and waveform variability. The popliteal vein demonstrates appropriate compressibility and waveform variability. There is color flow at the tibioperoneal trunk and in the posterior tibial vein. LEFT SIDE: The common femoral vein demonstrates appropriate compressibility and waveform variability. There is compressibility/patency of the great saphenous vein at the proximal thigh. The femoral vein demonstrates appropriate compressibility and waveform variability. The deep femoral vein demonstrates appropriate compressibility and waveform variability. The popliteal vein demonstrates appropriate compressibility and waveform variability. There is color flow at the tibioperoneal trunk and in the posterior tibial vein. Impression: 1. No right or left femoropopliteal venous thrombosis.
[2024-12-20] MEDS: NIFEdipine ER 30 MG TAB PO SCH (10:45)
[2024-12-20] MEDS: METOPROLOL TARTRATE 25 MG TAB PO SCH (10:45)
[2024-12-20] MEDS: PANTOPRAZOLE 40 MG/10 ML VIAL INJ IV SCH (10:46)
[2024-12-20] MEDS: TACROLIMUS 1 MG CAP PO SCH (11:16)
--- NOTE | 2024-12-20 11:21 | DVH ---
Bilateral Lower Extremity Arterial Duplex Date: 12/20/2024 09:34 AM Clinical History: Rule out Pad Comparison: None Findings: Duplex Doppler evaluation including color Doppler and spectral/pulsed waveform analysis of the lower extremity arteries was performed. RIGHT: Velocities and waveforms within normal limits. LEFT: Multifocal tandem atherosclerotic plaque noted throughout the lower extremity arteries. Peak systolic velocities are as follows: [employer] 129 cm/s Deep femoral 91 cm/s SFA proximal 116 cm/s SFA mid-portion 124 cm/s SFA distal 99 cm/s Popliteal 86 cm/s Posterior tibial 187 cm/s [at proximal, mid, and distal calf levels, respectively] Dorsalis pedis 118 cm/s The waveforms are triphasic except monophasic wave forms in Posterior tibial and DP . REFERENCE VALUES, [facility] ([facility]) vascular Imaging Lab Criteria: Peak systolic velocity ranges (in cm/sec) are as follows: <150 cm/s - <20 % stenosis 150-200 cm/s - 20-49% stenosis 200-300 cm/s - 50-75% stenosis >300 cm/s -> 75% stenosis Impression: Monophasic waveforms left posterior tibial artery and dorsalis pedal artery
--- NOTE | 2024-12-20 11:25 | DVH ---
INDICATION: Hypertensive crisis, history of renal transplant TECHNIQUE: Multiple real-time, duplex, and color Doppler sonographic images of the kidney and renal v asculature were obtained. COMPARISON: None FINDINGS: Resistive index, Velocities normal limits. Flow seen throughout transplant Flow is seen in the renal vein. The bladder is somewhat contracted which limits evaluation. IMPRESSION: Normal study
--- NOTE | 2024-12-20 12:06 | DVH ---
CLINICAL INDICATION: 54 years old, Female; Rule out osteomyelitis. COMPARISON: None TECHNIQUE: Multiplanar, multisequence MRI of the left foot was performed without intravenous contrast . Contrast: None. INTERPRETATION: Bones: There is T1 hypointensity in the cuboid, the navicular, the intermediate and lateral cuneiform with corresponding marrow edema consistent with acute osteomyelitis. This is immediately adjacent to a very large deep wound which extends to the bones in the midfoot plantar soft tissues. There is als o T1 hypointense, T2 hyperintense signal abnormality in the talus with cortical destruction along the anterior margin of the talus. Joints: Ankle joint effusion noted. There is midfoot and hindfoot arthrosis. Fluid in between the maria fernanda us and the navicular. Soft tissues: As described above, is skin ulceration in the plantar surface of the foot with a full-t hicknessr wound extending to the level of the cuboid measuring 2.6 cm in depth and 2.0 cm in AP dimen demi. Significant edema surrounds the wound. Edema and fluid present in the plantar fascia. Edema no salazar in the extrinsic muscles of the foot. There is dorsal subcutaneous edema. Plantar fascia is disru pted at the level of the open wound. IMPRESSION: 1. Osteomyelitis involving the cuneiforms associated with skin ulceration and deep wound in the plant ar midfoot as described. Osteomyelitis of the talus as well. Septic arthritis with effusion noted be tween the talus and navicula. 2. Cellulitis. 3. Plantar fascia tear.
--- NOTE | 2024-12-20 12:08 | DVHPNRES ---
Progress Note Date Seen: December 20, 2024 Resident Creating Document: REJI KOROMA RESIDENT Has the PT tested + for MRSA If YES, has PT been informed?: No Medical Necessity Reason Pt with a Central, PICC or Fol: No Medical Necessity Reason History of Present Illness Mrs. Ochoa is a 54-year-old female with PMH/PSHx of ESRD status post kidney transplant in 2013 on prednisolone, mycophenolate, tacrolimus, history of diabetes mellitus type 1, hypertension, GERD, CAD with MN 2019-no CIARA, left lower extremity osteomyelitis 1 year ago, chronic nonhealing lower extremity diabetic foot wounds, history of splenic abscess and peritonitis and DKA in 2019 presented to the ER with a chief complaint of nausea, vomiting for a day along with uncontrolled blood pressure. She reports that her insulin pump sensor went bad, and she has been experiencing nausea, had 2 episodes of vomiting, no hemoptysis or hematemesis for the past day. She took 10 units of insulin prior to coming to the ER. She checked her glucose and blood pressure at home, which were elevated and she decided to come to the ER. Patient was recently admitted in October and [facility] for infected foot wounds where right arm PICC line was placed and she was started on IV daptomycin, IV Rocephin which was switched earlier this week to some other IV antibiotic use the patient does not remember. On arrival to the ER, patient had low-grade fever 99.7 F, pulse 103 bpm, blood pressure 185/96, saturating 97 on room air. H&H 9.9/36. Ketones 0.6. Anion gap 8. Serum glucose 369. PMH/PSH: ESRD status post kidney transplant in 2013 on prednisolone, mycophenolate, tacrolimus, history of diabetes mellitus type 1, hypertension, GERD, CAD with MN 2019-no CIARA, left lower extremity osteomyelitis 1 year ago, chronic nonhealing lower extremity diabetic foot wounds, history of splenic abscess and peritonitis and DKA in 2019 Past surgical history: Kidney transplant in 2013 Social history: Lives with , denies smoking/drinking/illicit drug use Home medications: Metoprolol 25 mg b.i.d., aspirin, Plavix, prednisolone, mycophenolate, tacrolimus, IV antibiotic (unknown) Patient seen and examined in the ER. Bilateral foot diabetic wounds, draining purulent material. Left lower extremity is warm. PN 12/20/2024 Patient is seen and examined. She presented to the ED after she had noted that her blood pressure and blood sugars were elevated. At baseline, She is status post kidney transplant ( 2013) and takes mycophenolate and tacrolimus. Patient was recently admitted (October) at [facility] for infected foot wounds. Had a right arm PICC line was placed and she was started on IV daptomycin, IV Rocephin which was switched earlier this week to some other IV antibiotic use the patient does not remember. Patient at baseline has neuropathy bilaterally. Limited sensation and open and ozing wounds on her feet bilaterally. Initial ED vitals were T max of 99.7 , HR: 103, and initial BP is 185/96 mmHg. labs significant for Na: 128, K: 5.2, Cr: 1.61 mg/dl, Glu: 369, and Hb: 9.9 g/dl. Will get wound culture and blood culture and continue on antibiotics. Renal ultrasound is normal and no evidence of DVT on venous Doppler. Subjective Review of Systems Constitutional: Denies fever no chills no feeling of malaise HEENT: Denies headache, ear pain, ear discharges, conjunctivitis, nasal discharge throat pain Cardiovascular: Denies chest pain, palpitation, orthopnea, PND, or pedal edema Respiratory: Denies shortness of breath, cough cough, sputum production, hemoptysis, GI: Denies abdominal pain, nausea, vomiting, diarrhea, hematemesis, hematochezia, : Denies frequency, urgency, hematuria, Endocrine: Denies unintentional weight gain or weight loss, feeling of hot flashes, Juan: Denies easy bruising, bleeding disorders, epistaxis Musculoskeletal: Denies joint pains, muscle aches Psych: No evidence of depression, jessica, suicidal ideation Objective vital signs Vital Sign Date Time Temp Pulse Resp B/P (MAP) Pulse Ox O2 Delivery O2 Flow Rate FiO2 12/20/24 11:50 88 122/62 12/20/24 11:00 97.6 22 95 97.6 12/20/24 07:30 Room Air* 0 21 Total Intake and Output 12/19/24 12/19/24 12/20/24 15:00 23:00 07:00 Intake Total 334 ml Balance 334 ml medications Current Medications Medications Dose Ordered Sig/Dottie Route Start Time Stop Time Status Last Admin Dose Admin Diagnostic Test (Pha) 1 strip ACHS 12/19/24 22:15 12/20/24 11:35 1 STRIP Insulin Human Regular HS SC 12/19/24 22:15 12/19/24 22:27 6 UNITS Dextrose 50 ml UD PRN IV 12/19/24 22:15 Nifedipine 30 mg DAILY PO 12/20/24 10:00 12/20/24 10:45 30 MG Meropenem 50 ml @ 17 mls/hr Q8HR IV 12/20/24 02:15 12/20/24 04:22 17 MLS/HR Aspirin 81 mg DAILY PO 12/20/24 10:00 12/20/24 10:42 81 MG Insulin Glargine 20 units HS SC 12/20/24 22:00 Sodium Chloride 1,000 ml @ 100 mls/hr Q10H IV 12/20/24 02:15 12/20/24 03:50 100 MLS/HR Metoprolol Tartrate 25 mg BID PO 12/20/24 10:00 12/20/24 10:45 25 MG Pantoprazole Sodium 40 mg DAILY IV 12/20/24 10:00 12/20/24 10:46 40 MG Enoxaparin Sodium 30 mg DAILY SC 12/20/24 10:00 UNV Ondansetron HCl 4 mg Q4HPRN PRN IV 12/20/24 02:15 Atorvastatin Calcium 40 mg HS PO 12/20/24 22:00 Linezolid 300 ml @ 150 mls/hr Q12HR IV 12/20/24 10:00 12/20/24 10:42 150 MLS/HR Tacrolimus 2 mg BID PO 12/20/24 10:00 12/20/24 11:16 2 MG Enoxaparin Sodium 40 mg DAILY SC 12/20/24 10:00 12/20/24 10:42 40 MG Insulin Human Lispro 6 units AC SC 12/20/24 11:30 UNV Examination General Appearance: Alert, Oriented X3, Cooperative, No acute distress HEENT: Atraumatic, PERRLA, EOMI, Mucous membrane moist/pink Respiratory: Clear to auscultation, Normal air movement Cardiovascular: Regular rate, Normal S1, Normal S2, No murmurs, no chest wall tenderness Abdominal: NO distention, no tenderness, bowel sounds present, no scars noted Extremities: open wounds under her feet Skin: No rashes, No breakdown, No significant lesion Neuro: Bilateral neuropathy. limited sensation bilateral. Psych/Mental Status: Mental status NL, Mood NL laboratory and microbiology Laboratory Tests 12/20/24 03:30 Test 12/20/24 03:30 Range/Units Serum Glucose 258 H 74-106 mg/dL Problem List/Assessment/Plan Problem List/Assessment/Plan Assessment and plan Possible sepsis due to diabetic foot infection to rule out osteomyelitis --> Wound culture --> Blood culture --> MRI of the foot pending Chronic nonhealing diabetic foot wound --> Wound culture --> Left lower extremity osteomyelitis 1 year ago --> MRI pending, rule out osteomyelitis Hypertensive Emergency --> 185/96 --> end organ damaged; kidney LAINE likely vasomotor mediated superimposed on probable CKD -->fluids and monitor Uncontrolled diabetes mellitus type 1-hemoglobin A1c 6.4 --> On insulin via the pump --> blood glucose 369 on admission --> Lantus 19 at HS, 6 lispro TID with meals ESRD status post kidney transplant in 2013 --> ON prednisolone, mycophenolate, tacrolimus Hyperkalemia resolved GERD CAD with MN 2018-no CIARA Anemia Hyponatremia History of splenic abscess and peritonitis History of DKA in 2019 Per nephrology, patient shoud Resume Prograf 2 mg PO BID, and prednisone 5 mg daily will resume MMF tomorrow if patient remains stable Goal of care discussed for more than 20 minutes: Full code Case and plan discussed with Dr. Franklin discussed with: Patient My Orders My Orders Orders - REJI KOROMA Procedure Category Date Status Time Consistent DIET 12/20/24 Transmitted Carb(Ccho)Diabetes Lunch Insulin Lispro PHA 12/20/24 Logged (Human) (Humalog) 11:30 Date of Service: December 20, 2024 Billing Provider: PHOEBE OLIVIER MD Common Visit Codes: [id number] INP/OBS CARE(HIGH) REJI KOROMA RESIDENT December 20, 2024 12:08 PHOEBE OLIVIER MD December 20, 2024 19:27
[2024-12-20] MEDS: INSULIN LISPRO (HUMAN) 100 UNITS/ML ML SC SCH (12:36)
--- NOTE | 2024-12-20 12:44 | DVHINCON2 ---
Date Seen: December 20, 2024 Reason for Consultation Left foot wound History of Present Illness Mrs. Ochoa is a 54-year-old female with PMH/PSHx of ESRD status post kidney transplant in 2013 on prednisolone, mycophenolate, tacrolimus, history of diabetes mellitus type 1, hypertension, GERD, CAD with [place] 2019-no CIARA, left lower extremity osteomyelitis 1 year ago, chronic nonhealing lower extremity diabetic foot wounds, history of splenic abscess and peritonitis and DKA in 2019 presented to the ER with a chief complaint of nausea, vomiting for a day along with uncontrolled blood pressure. She reports that her insulin pump sensor went bad, and she has been experiencing nausea, had 2 episodes of vomiting, no hemoptysis or hematemesis for the past day. She took 10 units of insulin prior to coming to the ER. She checked her glucose and blood pressure at home, which were elevated and she decided to come to the ER. Past Medical History See H&P Past Surgical History See H&P Family History: Patient reports no known family medical history. Allergies: Coded Allergies: NO KNOWN ALLERGIES (Unverified , 10/21/13) Home Meds Active Scripts Sulfamethoxazole W/Trimethopri (Trimethoprim/Sulfamethoxa) 1 Tab Tab, 1 TAB PO BID for 7 Days, #14 TAB 0 Refills Prov:LUIS FERNANDO AVILEZ 08/22/22 Guaifenesin-Codeine (Robitussin/Codeine) 10 Ml So, 5 ML PO Q6HR, #120 ML Prov:ZARINA POWELL MD 12/08/21 Azithromycin (Zithromax) 1 Gm Pow, 1 PACK PO ONCE, #1 PACK Prov:ZARINA POWELL MD 12/08/21 Cephalexin Monohydrate (Cephalexin) 500 Mg Cap, 500 MG PO Q6HR, #28 MG Prov:ARY DIAMOND MD 11/12/21 Ciprofloxacin Hcl (Ciprofloxacin Hcl) 500 Mg Tab, 1 TAB PO BID, #10 TAB Prov:JONO VILLANUEVA MD 04/07/14 Reported Medications Furosemide (Furosemide) 80 Mg Tab, 1 TAB PO BID, #180 TAB 3 Refills 04/04/14 Pregabalin (Lyrica) 75 Mg Cap, 75 MG PO DAILY, CAP 04/04/14 Insulin Glargine (Lantus) 100 Units/Ml Vial, 40 UNITS SC HS, INJ 10/22/13 Insulin Lispro (Human) (Humalog) 100 Mg/Ml Inj, SC AC, INJ 10/22/13 Hydrocodone-Acetaminophen (Hydrocodone/Acetaminophen) 1 Tab Tab, 1 TAB PO BID, TAB 10/22/13 B-Complex W/ C & Folic Acid (Abigail-Ubaldo) Tab, 1 MG OR DAILY, TAB 10/22/13 Lovastatin (Lovastatin) 20 Mg Tab, 20 MG PO DAILY, TAB 10/22/13 Lisinopril (Lisinopril) 5 Mg Tab, 5 MG PO DAILY, TAB 10/22/13 Calcitriol (Calcitriol) 0.5 Mcg Cap, 0.5 MG PO 1XW, CAP 10/22/13 Sodium Hydrogenocarbonate (SODIUM BICARBONATE) 650 Mg Tb, 650 MG PO TID 10/22/13 Ferrous Sulfate (FERROUS SULFATE) 325 Mg Tb, 325 MG PO DAILY 10/22/13 Omeprazole (PRILOSEC) 20 Mg Cap, 40 MG OR DAILY, #1 CAP 10/21/13 Current Medications Current Medications Medications (Trade) Dose Ordered Sig/Dottie Route PRN Reason Start Time Stop Time Status Last Admin Diagnostic Test (Pha) (Accu-Chek Comfort Curve T) 1 strip ACHS 12/19/24 22:15 12/20/24 11:35 Insulin Human Regular (InsuLIN R) HS SC 12/19/24 22:15 12/19/24 22:27 Insulin Human Regular (InsuLIN R) AC SC 12/20/24 07:00 12/20/24 10:30 DC 12/20/24 06:53 Dextrose 50 ml UD PRN IV Blood Sugar LESS THAN 60 12/19/24 22:15 Nifedipine (Procardia Xl (Time-Release)) 30 mg DAILY PO 12/20/24 10:00 12/20/24 10:45 Vancomycin HCl 0 ml @ 0 mls/hr UD IV 12/20/24 02:15 12/20/24 04:40 DC Meropenem 50 ml @ 17 mls/hr Q8HR IV 12/20/24 02:15 12/20/24 04:22 Aspirin (Ecotrin Enteric Coated Tablet) 81 mg DAILY PO 12/20/24 10:00 12/20/24 10:42 Insulin Glargine (Lantus) 20 units HS SC 12/20/24 22:00 Sodium Chloride 1,000 ml @ 100 mls/hr Q10H IV 12/20/24 02:15 12/20/24 12:37 Metoprolol Tartrate (Lopressor Tablet) 25 mg BID PO 12/20/24 10:00 12/20/24 10:45 Pantoprazole Sodium (Protonix) 40 mg DAILY IV 12/20/24 10:00 12/20/24 10:46 Enoxaparin Sodium (Lovenox) 30 mg DAILY SC 12/20/24 10:00 UNV Ondansetron HCl (Zofran) 4 mg Q4HPRN PRN IV NAUSEA / VOMITING 12/20/24 02:15 Atorvastatin Calcium (Lipitor) 40 mg HS PO 12/20/24 22:00 Linezolid 300 ml @ 150 mls/hr Q12HR IV 12/20/24 10:00 12/20/24 10:42 Tacrolimus (Prograf) 2 mg BID PO 12/20/24 10:00 12/20/24 11:16 Enoxaparin Sodium (Lovenox) 40 mg DAILY SC 12/20/24 10:00 12/20/24 10:42 Insulin Human Lispro (HumaLOG) 6 units AC SC 12/20/24 11:30 12/20/24 12:36 Vital Signs Vital Signs Date Time Temp Pulse Resp B/P (MAP) Pulse Ox O2 Delivery O2 Flow Rate FiO2 12/20/24 11:50 88 122/62 12/20/24 11:00 97.6 22 95 97.6 12/20/24 07:30 Room Air* 0 21 Physical Exam Dermatological: Skin is dry with mild erythema and some maceration around the wound site No gross deformities noted Mild non-pitting edema present bilaterally Wound: Location: Left lateral foot Measures: 2 cm in length, 1 cm in width, and 2 cm in depth. Depth: Full thickness Base: Mix of granulation/slough Drainage: None Odor: None Periwound: Intact Vascular: Dorsalis pedis and posterior tibial pulses are 1+ bilaterally Capillary refill is under 2 seconds Skin temperature is warm bilaterally Neurologic: Protective sensation is absent on the plantar forefoot bilaterally Monofilament testing reveals decreased sensation in multiple plantar sites Musculoskeletal: Range of motion at the ankle and MTP joints is within normal limits. Strength is 5/5 in all tested muscle groups. Gait is antalgic due to offloading of the affected limb. Labs/Diagnostic Data Labs Test 12/20/24 11:28 12/20/24 08:36 12/20/24 03:33 12/20/24 03:30 Range/Units POC Glucose 236 H 70-106 mg/dl Thyroid Stimulating Hormone (TSH) 1.12 0.55-4.78 uIU/mL White Blood Count 5.9 4.4-10.8 10^3/uL Red Blood Count 3.43 L 4.0-5.20 10^6/uL Hemoglobin 9.3 L 12.2-16.2 g/dL Hematocrit 29.0 L 36.0-46.0 % Mean Corpuscular Volume 84.5 80.0-100.0 fL Mean Corpuscular Hemoglobin 27.0 L 28.0-32.0 pg Mean Corpuscular Hemoglobin Concent 32.0 32.0-36.0 g/dL Red Cell Distribution Width 16.9 H 11.8-14.3 % Platelet Count 341 140-450 10^3/uL Mean Platelet Volume 9.1 6.9-10.8 fL Neutrophils (%) (Auto) 73.0 37.0-80.0 % Lymphocytes (%) (Auto) 8.7 L 10.0-50.0 % Monocytes (%) (Auto) 17.4 H 0.0-12.0 % Eosinophils (%) (Auto) 0.3 0.0-7.0 % Basophils (%) (Auto) 0.6 0.0-2.0 % Neutrophils # (Auto) 4.3 1.6-8.6 10 ^3/uL Lymphocytes # (Auto) 0.5 0.4-5.4 10 ^3/uL Monocytes # (Auto) 1.0 0-1.3 10 ^3/uL Eosinophils # (Auto) 0 0-0.8 10 ^3/uL Basophils # (Auto) 0 0-0.2 10 ^3/uL Nucleated Red Blood Cells 0.1 % Erythrocyte Sedimentation Rate 110 H 0-20 mm/hr Prothrombin Time 11.7 9.3-11.8 sec Prothrombin Time INR 1.12 0.9-1.15 Activated Partial Thromboplast Time 26.5 24.5-34.5 SEC Sodium Level 131 L 136-145 mmol/L Potassium Level 4.6 3.5-5.1 mmol/L Chloride Level 97 L 98-107 mmol/L Carbon Dioxide Level 24 20-31 mmol/L Anion Gap 10 5-15 Blood Urea Nitrogen 26 H 9-23 mg/dL Creatinine 1.62 H 0.550-1.02 mg/dL Glomerular Filtration Rate Calc 38 >90 mL/min BUN/Creatinine Ratio 16.0 10.0-20.0 Serum Glucose 258 H 74-106 mg/dL Lactic Acid Level 1.0 0.4-2.0 mmol/L Calcium Level 10.3 8.7-10.4 mg/dL Magnesium Level 2.0 1.6-2.6 mg/dL Total Bilirubin 0.7 0.2-1.0 mg/dL Aspartate Amino Transferase (AST) 11 L 13-40 U/L Alanine Aminotransferase (ALT) 11 7-40 U/L Alkaline Phosphatase 98 46-116 U/L C-Reactive Protein High Sensitivity > 20.00 H <1.0 mg/dL Total Protein 7.7 5.7-8.2 g/dL Albumin 4.2 3.2-4.8 g/dL Test 12/19/24 14:30 12/19/24 13:22 Range/Units Urine Color Light-yellow Yellow Urine Clarity Clear Clear Urine pH 5.5 5.0-9.0 Urine Specific Artesian 1.018 1.001-1.035 Urine Protein 1+ H Negative Urine Ketones 1+ H Negative Urine Blood Negative Negative /uL Urine Nitrite Negative Negative Urine Bilirubin Negative Negative Urine Urobilinogen Normal Negative mg/dL Urine Leukocyte Esterase Negative Negative /uL Urine RBC 1 0 - 4 /hpf Urine Microscopic WBC 2 0-5 /HPF Urine Squamous Epithelial Cells Few <5 /hpf Urine Bacteria None seen None Seen /hpf Urine Osmolality 564 mOsm/kg Urine Creatinine 74.78 30.0-125.0 mg/dL Urine Microalbumin 103.0 H <30.0 mg/L Urine Protein/Creatinine Ratio 1.39 Urine Sodium 91 40-220 mmol/L Urine Glucose 3+ H Normal mg/dL Urine Total Protein 104.1 H 1-14 mg/dL Urine Opiates Screen Neg NEGATIVE Urine Fentanyl Screen Neg NEGATIVE Urine Barbiturates Screen Neg NEGATIVE Urine Phencyclidine Screen Neg NEGATIVE Urine Amphetamines Screen Neg NEGATIVE Urine Benzodiazepines Screen Neg NEGATIVE Urine Cocaine Screen Neg NEGATIVE Urine Cannabinoids Screen Neg NEGATIVE Hemoglobin A1c 6.4 H <5.7 % A1C Serum Osmolality 292 278-298 mOsm/kg Phosphorus Level 2.8 2.4-5.1 mg/dL Triglycerides Level 72 < 150 mg/dL Cholesterol Level 118 < 200 mg/dL LDL Cholesterol 78 < 100 mg/dL HDL Cholesterol 24 L 40-59 mg/dL Lipase 27 12-53 U/L Vitamin B12 Level 989 H 211-911 pg/mL Vitamin D 25-Hydroxy 92.2 30.0-100 ng/mL Beta-Hydroxybutyric Acid 0.692 H < 0.4 mmol/L Problems(with codes): (1) Diabetes (2) acute hypoglycemic episode (3) chronic renal failure (4) Diabetes (5) Hypertension (6) acute hypoglycemia (7) acute hypokalemia (8) end-stage renal disease on peritoneal dialysis (9) possible peritonitis (10) rule out sepsis (11) End-stage renal disease on peritoneal dialysis (12) Splenic abscess (13) Hyperglycemia (14) Malnutrition (15) Chronic anemia (16) Diabetes (17) Cellulitis and abscess of foot (18) ESRD (end stage renal disease) (19) Penetrating foot wound (20) Foot pain, left (21) Strain of foot, left (22) Foot pain, left (23) Strain of foot, left (24) Neuropathy (25) Insulin dependent diabetes mellitus (26) Rat bite (27) Anxiety (28) Chest pain (29) UTI (urinary tract infection) (30) Acute bronchitis (31) Acute CHF (32) Cellulitis of right foot (33) Eloped from emergency department (34) Charcot arthropathy of midfoot (35) Hyperkalemia (36) Hypochloremia (37) Electrolyte imbalance (38) Acute renal disease (39) Intractable vomiting Plan/Recommendation ASSESSMENT: Patient is a 54 year old seen on the floor for a worsening ulcer PLAN: - The patients chart was reviewed, clinical findings were discussed with the patient, the etiologies of the conditions were discussed in detail, and a treatment plan was agreed to at this time, with both oral and written instructions provided. - reviewed advanced imaging - discussed with the patient likely it is due to her Charcot that the MRI is showing concern for osteomyelitis - would not recommend any surgical intervention at this point - patient would benefit from outpatient wound care - we will follow up with me in 1 week - continue using wound VAC - continue IV antibiotics All questions were answered and concerns addressed to the patient's satisfaction. The patient was given the phone number to the clinic and was told how to make contact with the clinic should any concerns or questions arise. Patient understands that if any questions or concerns arise prior to the next appointment, we should be contacted immediately. FOLLOW-UP: Continue to follow while inpatient Plan discussed with: Patient Date of Service: December 20, 2024 Billing Provider: DAMARIS ZAYAS DPM Common Visit Codes: CONSULT ONLY Consultation Codes: [id number] CONSULT <80MIN DAMARIS ZAYAS DPM December 20, 2024 12:44
[2024-12-20] MEDS: ACETAMINOPHEN 325 MG TAB PO ONE (13:45)
[2024-12-20 14:37] VITALS: BP 129/67; PULSE 76; RESP 20; TEMP 98.1; O2SAT 100; O2SAT 98
[2024-12-20 16:48] VITALS: BP 139/66; PULSE 70; RESP 19; TEMP 98.4; O2SAT 99
[2024-12-20] MEDS: ACETAMINOPHEN 325 MG TAB PO PRN (18:11)
[2024-12-20 19:30] VITALS: PULSE 88; RESP 16; O2SAT 97
[2024-12-20] MEDS ORDERED: DEXTROSE (50%) 50ML SYRG IV PRN (20:30)
[2024-12-20 21:00] VITALS: BP 115/55; PULSE 79; RESP 15; TEMP 98.2; O2SAT 96
[2024-12-20] MEDS: INSULIN LANTUS (GLARGINE) 1 /0.01ml (100units/ml) SC SCH (22:00)
[2024-12-20] MEDS: ATORVASTATIN 20 MG TAB PO SCH (22:00)
[2024-12-20] MEDS: ACCU-CHEK COMFORT CURVE STRIP VI SCH (22:00)
[2024-12-21 01:00] VITALS: BP 136/68; PULSE 73; RESP 15; TEMP 97.2; O2SAT 98
[2024-12-21 05:00] VITALS: BP 156/70; PULSE 90; RESP 15; TEMP 98.1; O2SAT 98
--- NOTE | 2024-12-21 12:24 | DVHINCON2 ---
Date of service: December 20, 2024 Family History: Diabetes mellitus G8 FATHER, Allergies: Coded Allergies: NO KNOWN ALLERGIES (Unverified , 10/21/13) Home Meds Active Scripts Sulfamethoxazole W/Trimethopri (Trimethoprim/Sulfamethoxa) 1 Tab Tab, 1 TAB PO BID for 7 Days, #14 TAB 0 Refills Prov:LUIS FERNANDO AVILEZ 08/22/22 Guaifenesin-Codeine (Robitussin/Codeine) 10 Ml So, 5 ML PO Q6HR, #120 ML Prov:ZARINA POWELL MD 12/08/21 Azithromycin (Zithromax) 1 Gm Pow, 1 PACK PO ONCE, #1 PACK Prov:ZARINA POWELL MD 12/08/21 Cephalexin Monohydrate (Cephalexin) 500 Mg Cap, 500 MG PO Q6HR, #28 MG Prov:ARY DIAMOND MD 11/12/21 Ciprofloxacin Hcl (Ciprofloxacin Hcl) 500 Mg Tab, 1 TAB PO BID, #10 TAB Prov:JONO VILLANUEVA MD 04/07/14 Reported Medications Furosemide (Furosemide) 80 Mg Tab, 1 TAB PO BID, #180 TAB 3 Refills 04/04/14 Pregabalin (Lyrica) 75 Mg Cap, 75 MG PO DAILY, CAP 04/04/14 Insulin Glargine (Lantus) 100 Units/Ml Vial, 40 UNITS SC HS, INJ 10/22/13 Insulin Lispro (Human) (Humalog) 100 Mg/Ml Inj, SC AC, INJ 10/22/13 Hydrocodone-Acetaminophen (Hydrocodone/Acetaminophen) 1 Tab Tab, 1 TAB PO BID, TAB 10/22/13 B-Complex W/ C & Folic Acid (Abigail-Ubaldo) Tab, 1 MG OR DAILY, TAB 10/22/13 Lovastatin (Lovastatin) 20 Mg Tab, 20 MG PO DAILY, TAB 10/22/13 Lisinopril (Lisinopril) 5 Mg Tab, 5 MG PO DAILY, TAB 10/22/13 Calcitriol (Calcitriol) 0.5 Mcg Cap, 0.5 MG PO 1XW, CAP 10/22/13 Sodium Hydrogenocarbonate (SODIUM BICARBONATE) 650 Mg Tb, 650 MG PO TID 10/22/13 Ferrous Sulfate (FERROUS SULFATE) 325 Mg Tb, 325 MG PO DAILY 10/22/13 Omeprazole (PRILOSEC) 20 Mg Cap, 40 MG OR DAILY, #1 CAP 10/21/13 Current Medications Current Medications Medications (Trade) Dose Ordered Sig/Dottie Route PRN Reason Start Time Stop Time Status Last Admin Insulin Glargine (Lantus) 20 units HS SC 12/20/24 22:00 12/21/24 05:31 DC Atorvastatin Calcium (Lipitor) 40 mg HS PO 12/20/24 22:00 12/21/24 05:31 DC 12/20/24 22:00 Acetaminophen (Tylenol Tablet) 650 mg Q6HP PRN PO MODERATE PAIN (4-6 PAIN SCALE) 12/20/24 13:45 12/21/24 05:31 DC 12/20/24 18:11 Diagnostic Test (Pha) (Accu-Chek Comfort Curve T) 1 strip ACHS 12/20/24 22:00 12/21/24 05:31 DC 12/20/24 22:00 Insulin Human Regular (InsuLIN R) ACHS SC 12/20/24 22:00 12/21/24 05:31 DC Dextrose 50 ml UD PRN IV Blood Sugar LESS THAN 60 12/20/24 20:30 12/21/24 05:31 DC Vital Signs Vital Signs Date Time Temp Pulse Resp B/P (MAP) Pulse Ox O2 Delivery O2 Flow Rate FiO2 12/21/24 05:00 98.1 90 15 156/70 (98) 98 98.1 12/20/24 19:30 Room Air* 0 21 Labs/Diagnostic Data Labs Test 12/20/24 22:12 12/20/24 12:59 12/20/24 03:33 12/20/24 03:30 Range/Units POC Glucose 125 H 70-106 mg/dl Thyroid Stimulating Hormone (TSH) 1.12 0.55-4.78 uIU/mL White Blood Count 5.9 4.4-10.8 10^3/uL Red Blood Count 3.43 L 4.0-5.20 10^6/uL Hemoglobin 9.3 L 12.2-16.2 g/dL Hematocrit 29.0 L 36.0-46.0 % Mean Corpuscular Volume 84.5 80.0-100.0 fL Mean Corpuscular Hemoglobin 27.0 L 28.0-32.0 pg Mean Corpuscular Hemoglobin Concent 32.0 32.0-36.0 g/dL Red Cell Distribution Width 16.9 H 11.8-14.3 % Platelet Count 341 140-450 10^3/uL Mean Platelet Volume 9.1 6.9-10.8 fL Neutrophils (%) (Auto) 73.0 37.0-80.0 % Lymphocytes (%) (Auto) 8.7 L 10.0-50.0 % Monocytes (%) (Auto) 17.4 H 0.0-12.0 % Eosinophils (%) (Auto) 0.3 0.0-7.0 % Basophils (%) (Auto) 0.6 0.0-2.0 % Neutrophils # (Auto) 4.3 1.6-8.6 10 ^3/uL Lymphocytes # (Auto) 0.5 0.4-5.4 10 ^3/uL Monocytes # (Auto) 1.0 0-1.3 10 ^3/uL Eosinophils # (Auto) 0 0-0.8 10 ^3/uL Basophils # (Auto) 0 0-0.2 10 ^3/uL Nucleated Red Blood Cells 0.1 % Erythrocyte Sedimentation Rate 110 H 0-20 mm/hr Prothrombin Time 11.7 9.3-11.8 sec Prothrombin Time INR 1.12 0.9-1.15 Activated Partial Thromboplast Time 26.5 24.5-34.5 SEC Sodium Level 131 L 136-145 mmol/L Potassium Level 4.6 3.5-5.1 mmol/L Chloride Level 97 L 98-107 mmol/L Carbon Dioxide Level 24 20-31 mmol/L Anion Gap 10 5-15 Blood Urea Nitrogen 26 H 9-23 mg/dL Creatinine 1.62 H 0.550-1.02 mg/dL Glomerular Filtration Rate Calc 38 >90 mL/min BUN/Creatinine Ratio 16.0 10.0-20.0 Serum Glucose 258 H 74-106 mg/dL Lactic Acid Level 1.0 0.4-2.0 mmol/L Calcium Level 10.3 8.7-10.4 mg/dL Magnesium Level 2.0 1.6-2.6 mg/dL Total Bilirubin 0.7 0.2-1.0 mg/dL Aspartate Amino Transferase (AST) 11 L 13-40 U/L Alanine Aminotransferase (ALT) 11 7-40 U/L Alkaline Phosphatase 98 46-116 U/L C-Reactive Protein High Sensitivity > 20.00 H <1.0 mg/dL Total Protein 7.7 5.7-8.2 g/dL Albumin 4.2 3.2-4.8 g/dL Test 12/19/24 14:30 12/19/24 13:22 Range/Units Urine Color Light-yellow Yellow Urine Clarity Clear Clear Urine pH 5.5 5.0-9.0 Urine Specific [place] 1.018 1.001-1.035 Urine Protein 1+ H Negative Urine Ketones 1+ H Negative Urine Blood Negative Negative /uL Urine Nitrite Negative Negative Urine Bilirubin Negative Negative Urine Urobilinogen Normal Negative mg/dL Urine Leukocyte Esterase Negative Negative /uL Urine RBC 1 0 - 4 /hpf Urine Microscopic WBC 2 0-5 /HPF Urine Squamous Epithelial Cells Few <5 /hpf Urine Bacteria None seen None Seen /hpf Urine Osmolality 564 mOsm/kg Urine Creatinine 74.78 30.0-125.0 mg/dL Urine Microalbumin 103.0 H <30.0 mg/L Urine Protein/Creatinine Ratio 1.39 Urine Sodium 91 40-220 mmol/L Urine Glucose 3+ H Normal mg/dL Urine Total Protein 104.1 H 1-14 mg/dL Urine Opiates Screen Neg NEGATIVE Urine Fentanyl Screen Neg NEGATIVE Urine Barbiturates Screen Neg NEGATIVE Urine Phencyclidine Screen Neg NEGATIVE Urine Amphetamines Screen Neg NEGATIVE Urine Benzodiazepines Screen Neg NEGATIVE Urine Cocaine Screen Neg NEGATIVE Urine Cannabinoids Screen Neg NEGATIVE Hemoglobin A1c 6.4 H <5.7 % A1C Serum Osmolality 292 278-298 mOsm/kg Phosphorus Level 2.8 2.4-5.1 mg/dL Triglycerides Level 72 < 150 mg/dL Cholesterol Level 118 < 200 mg/dL LDL Cholesterol 78 < 100 mg/dL HDL Cholesterol 24 L 40-59 mg/dL Lipase 27 12-53 U/L Vitamin B12 Level 989 H 211-911 pg/mL Vitamin D 25-Hydroxy 92.2 30.0-100 ng/mL Beta-Hydroxybutyric Acid 0.692 H < 0.4 mmol/L Microbiology Date/Time Source Procedure Growth Status 12/20/24 11:00 Foot Gram Stain Pending Resulted 12/20/24 11:00 Foot Wound Culture - Preliminary Resulted 12/20/24 03:30 Blood Blood Culture - Preliminary Resulted Problems(with codes): (1) rule out sepsis (2) possible peritonitis (3) acute hypoglycemic episode (4) Diabetes (5) Charcot arthropathy of midfoot (6) Eloped from emergency department (7) Penetrating foot wound (8) Splenic abscess (9) ESRD (end stage renal disease) (10) UTI (urinary tract infection) (11) Cellulitis and abscess of foot (12) end-stage renal disease on peritoneal dialysis (13) Cellulitis of right foot (14) Insulin dependent diabetes mellitus (15) Intractable vomiting Plan/Recommendation ASSESSMENT AND PLAN ID Problem List: - Chronic and acute diabetic foot ulcers, bilateral lower extremities - Charcot foot, bilateral - Chronic and acute osteomyelitis, left foot - Status-post kidney transplant (2013) on immunosuppression - Type 1 diabetes mellitus - End-stage renal disease (ESRD), status post transplant - Coronary artery disease - Hypertension - Lymphedema - History of splenic abscess, peritonitis - Possible sepsis - Uncontrolled hyperglycemia - Anemia - Hyponatremia - Elevated inflammatory markers Assessment Faye is a 54-year-old female with a significant past medical history including type 1 diabetes mellitus, ESRD status post kidney transplant (2013, on prednisone, mycophenolate, tacrolimus), hypertension, coronary artery disease, chronic lymphedema, history of splenic abscess and peritonitis, who presents with chronic bilateral lower extremity diabetic foot ulcers, Charcot foot, and both acute and chronic left foot osteomyelitis. Recent admission secondary to uncontrolled blood glucose levels following malfunction of insulin pump, intractable nausea and vomiting, and hypertensive crisis. Infectious disease was consulted to evaluate complex bilateral diabetic foot wounds. The patient has had chronic osteomyelitis in the left foot and has been on prolonged courses of antibiotics (including daptomycin, ceftriaxone, and more recently cefepime) for over a year with podiatry management. On examination, the left lower extremity plantar surface demonstrates a diabetic ulcer with exposure and tunneling to the bone. The right lower extremity, plantar surface, exhibits a draining wound with serous, non-odorous drainage. There is bilateral Charcot arthropathy and evidence of lymphedema. Recent labs: low-grade fever (99.7 F), pulse 103 bpm, BP 185/97, SpO2 97% RA, serum glucose 369, anion gap 8, ketones 0.6, Hgb 9.9, WBC 5.7, plt 338. Sodium 128, BUN 25, Cr 1.49, glucose 310, AC 12, ALT 20. Beta-hydroxybutyric acid 0.62 in urine. Microbiology: Wound cultures reveal gram positive rods. Blood cultures pending. Imaging: - MRI L foot: osteomyelitis involving cuneiforms, associated skin ulcer, deep fluid collection plantar midfoot, talus osteomyelitis, septic arthritis and effusion between talus and navicular; cellulitis and plantar fasciitis also noted. - Doppler LE: Monophasic waveforms left posterior tibial and dorsalis pedis arteries, no evidence of DVT. - Renal ultrasound: normal Therapy: Wound management by podiatry, transitioned to linezolid (Zyvox) and meropenem; prior antibiotics stopped. Plan: - Continue linezolid and meropenem pending microbiological guidance - Monitor for clinical status changes, and follow up on blood and wound cultures - Avoid nephrotoxic antibiotics given transplant status; involve nephrology for ongoing management - Endocrinology consult for diabetes management and optimization of insulin therapy - PICC line removal considered once oral transition feasible, given prolonged IV antibiotic course and presumed source control - Agree with podiatry: no urgent need for further surgical debridement; wounds appear chronic in nature - Hypertension managed with labetalol as needed - Monitor sodium and renal electrolytes - Support wound care: keep wounds clean and appropriately dressed. Monitor for new or worsening infection - Encourage outpatient follow up with transplant nephrology, podiatry, and infectious disease - Social support: lives with ; no tobacco, alcohol, or drug use - Plan subject to change based on new information or clinical course - Thank you for consult. ID will continue to follow. Please contact Infectious Disease service for further questions or concerns. Electronically signed by: Gaudencio Mendez MD, 12/21/2024 History The patient's chart and medications were reviewed in detail, and the patient was seen and examined. History obtained from patient and chart review. Faye is a 54-year-old female with history significant for type 1 diabetes mellitus, end-stage renal disease s/p kidney transplant (2013, on immunosuppression), hypertension, coronary artery disease, chronic lymphedema, diabetic foot ulcers and Charcot foot, admitted for evaluation of bilateral lower extremity wounds and uncontrolled blood sugars. Notable for recent malfunction of insulin pump, resulting in severe hyperglycemia and associated symptoms of nausea and vomiting. Past infectious complications include chronic osteomyelitis of the left foot; patient has been on various antibiotics for over a year with variable response. Review of Systems: A complete 10-system review of systems was completed and negative except as noted in the HPI or below. - CONSTITUTIONAL: Reports nausea and vomiting, low grade fever. No chills or significant weight loss. - HEENT: No visual or auditory changes. - RESPIRATORY: No shortness of breath or cough. - CARDIOVASCULAR: No chest pain noted. - GI: As noted above, nausea and vomiting. No abdominal pain, diarrhea, or hematemesis. - : No dysuria or hematuria. - MSK: Chronic bilateral lower extremity pain related to foot ulcers and Charcot foot. No acute joint pain elsewhere. - SKIN: Chronic draining wounds as noted. No new rashes. - NEUROLOGICAL: No syncope, focal deficit, or headache. - PSYCHIATRIC: No changes in mood, anxiety, or depression. Past Medical History: - Type 1 diabetes mellitus - End-stage renal disease status post kidney transplant (2013) - Hypertension - Coronary artery disease - Lymphedema - Chronic and acute diabetic foot ulcers, Charcot foot - Chronic osteomyelitis, left foot - History of splenic abscess - History of peritonitis Past Surgical History: - Kidney transplant, 2013 - No other pertinent surgical history discussed Home Medications: - Metoprolol - Aspirin - Clopidogrel (Plavix) - Prednisone - Mycophenolate - Tacrolimus - Insulin (pump, not currently functioning) - Daptomycin (recently discontinued) - Ceftriaxone (recently discontinued) - Cefepime (recently discontinued) - Linezolid (Zyvox) and meropenem (started on admission) Doses, frequencies, and routes not explicitly provided; refer to provided chart for clarification. Allergies: Not provided in transcript. Family History: Not provided in transcript. Social History: - Lives with - Denies tobacco, alcohol, or illicit drug use Objective Vital Signs on Arrival: Temp: 99.7F (low grade) BP: 185/97 Pulse: 103 SpO2: 97% on room air Glucose: 369 mg/dL Most Recent Laboratory Results: - Hemoglobin: 9.9 - Platelet count: 338 WBC: 5.7 - Sodium: 128 - Creatinine: 1.49 - Glucose: 310 ALT: 20 - Beta-hydroxybutyric acid: 0.62 (urine) - Anion gap: 8 - Ketones: 0.6 Physical Exam: General: NAD Neck: Supple. No masses. HEENT: PERRL. Normal lids and conjunctiva. Moist mucous membranes. Oropharynx without lesions, exudates or excessive erythema. Normal appearance of the external aspects of the nose and ears. Heart: Regular rhythm, normal rate. No murmur. No lower extremity edema. Lungs: Normal respiratory effort. Clear to auscultation bilaterally. No wheezes. No crackles. Abdomen: Soft. Non-tender. Non-distended. No masses or abdominal hernia. Msk: Bilateral Charcot foot, left lower extremity plantar ulcer with tunneling to bone, right lower extremity plantar wound with serous drainage; bilateral chronic lymphedema. Skin: Warm and dry except for described wounds; no new rashes. Neuro: Alert. No facial droop or slurred speech. Extra-ocular move ments intact. Sensation intact to soft touch in all 4 limbs. Psych: Appropriate mood. Full affect. Oriented to person, place, time, and situation. Lines: - Right arm PICC line, active Diagnostic Studies: - MRI left foot: osteomyelitis involving cuneiforms, talus; associated skin ulcer, deep plantar fluid collection, septic arthritis/effusion between talus-navicular; plantar cellulitis and fasciitis - Doppler LE: Monophasic waveforms in left posterior tibial and dorsalis pedis arteries; no DVT - Renal ultrasound: normal - Urinalysis: no pyuria - Wound culture: gram positive rods - Blood cultures: pending Pertinent Imaging: - MRI as described above - Doppler ultrasound: no DVT; arterial flow abnormal - Renal ultrasound: normal Assessment and plan discussed with patient as written above. Plan is subject to change pending new information/diagnostics. Updates may be added as an addendum. Plan discussed with: Patient GAUDENCIO MENDEZ MD December 21, 2024 12:24
== END 2024-12-21 04:05 | disposition left against medical advice (07) | DRG 699 ==
LOC: EDUNIT# 12:03 → EDBD 12:03 → ER 12:12 → OVERFLOW 23:01 → TELE-WESTW 12-20 14:26
PROVIDERS: ADMIT Student in an Organized Health Care Education/Training Program; ATTEND Student in an Organized Health Care Education/Training Program
DX: T86.19 Other complication of kidney transplant (principal); E87.1 Hypo-osmolality and hyponatremia; I16.1 Hypertensive emergency; I13.2 Hypertensive heart and chronic kidney disease with heart failure and with stage 5 chronic kidney disease, or end stage renal disease; M86.172 Other acute osteomyelitis, left ankle and foot; M86.672 Other chronic osteomyelitis, left ankle and foot; N17.9 Acute kidney failure, unspecified; Z94.0 Kidney transplant status; Z53.29 Procedure and treatment not carried out because of patient's decision for other reasons; D64.9 Anemia, unspecified; E10.22 Type 1 diabetes mellitus with diabetic chronic kidney disease; E10.621 Type 1 diabetes mellitus with foot ulcer; E87.5 Hyperkalemia; I25.10 Atherosclerotic heart disease of native coronary artery without angina pectoris; I89.0 Lymphedema, not elsewhere classified; K21.9 Gastro-esophageal reflux disease without esophagitis; M14.679 Charcot's joint, unspecified ankle and foot; E10.69 Type 1 diabetes mellitus with other specified complication; E10.65 Type 1 diabetes mellitus with hyperglycemia; I50.9 Heart failure, unspecified; L97.529 Non-pressure chronic ulcer of other part of left foot with unspecified severity; L97.519 Non-pressure chronic ulcer of other part of right foot with unspecified severity; F32.A Depression, unspecified; E87.8 Other disorders of electrolyte and fluid balance, not elsewhere classified; Z79.2 Long term (current) use of antibiotics; Z98.891 History of uterine scar from previous surgery; Z90.710 Acquired absence of both cervix and uterus; Z83.3 Family history of diabetes mellitus; I25.2 Old myocardial infarction; Z79.899 Other long term (current) drug therapy; Z79.4 Long term (current) use of insulin
CPT/HCPCS: 36415; 73718; 76776; 80053; 80061; 80158; 80197; 80307; 81001; 82010; 82043; 82306; 82570; 82607; 82962; 83036; 83605; 83690; 83735; 83930; 83935; 84100; 84156; 84300; 84443; 85025; 85610; 85652; 85730; 86141; 87040; 87077; 87186; 87205; 93005; 93925; 93970; 96361; 96374; 96375; G0378; J1815; J2185; J2405; J2470; J7507

== ENCOUNTER 2025-04-19 12:59 | Inpatient (IN) | payer OTHER ==
[~2025-04-19] VITALS: Ht 167.6 cm; Wt 77.0 kg
--- NOTE | 2025-04-19 13:17 | ED.PDOC ---
History of Present Illness HPI Comments 54 y.o female with an extensive PMHx that includes NV, HTN, CHF, DM, and osteomyelitis, presents to the ED via EMS for a chief complaint of generalized weakness associated with nausea and vomiting that started one week ago. Patient has not been able to hold any solids, liquids or medication down due to persist ent vomiting. She denies any abdominal pain, chest pain, or shortness of breath. She reports no fever, chills, or diarrhea. EMS noted blood glucose BG of 247. Time Seen by MD: 12:57 Reviewed Notes: Nurses Notes, Customer Field Representative Notes, Medications, Allergies Allergies: Coded Allergies: NO KNOWN ALLERGIES (Unverified , 04/19/25) Information Source: Patient, Emergency Med Personnel Mode of Arrival: EMS Severity: Moderate Timing: Weeks (1) Duration: Since onset Past Medical History PAST MEDICAL HISTORY: CHF, DM, HTN, NV Surgical History (Other): kidney transplant x 2014 and a failed pancreas transplant x 2017 Constitutional: reports: malaise, weakness; denies: chills, diaphoresis, fatigue, fever, sweats, others EENTM: denies: blurred vision, double vision, ear bleeding, ear discharge, ear drainage, ear pain, ear ringing, eye pain, eye redness, hearing loss, mouth pain, mouth swelling, nasal discharge, nose bleeding, nose congestion, nose pain, photophobia, tearing, throat pain, throat swelling, voice changes, others Respiratory: denies: cough, hemoptysis, orthopnea, SOB at rest, shortness of breath, SOB with excertion, stridor, wheezing, others Cardiovascular: denies: chest pain, dizzy spells, diaphoresis, Dyspnea on exertion, edema, irregular heart beat, left arm pain, lightheadedness, palpitations, PND, syncope, others Gastrointestinal: reports: nausea, vomiting; denies: abdomen distended, abdominal pain, blood streaked bowels, constipated, diarrhea, dysphagia, difficu lty swallowing, hematemesis, melena, poor appetite, poor fluid intake, rectal bleeding, rectal pain, others Genitourinary: denies: abnormal vagina bleeding, burning, dyspareunia, dysuria, flank pain, frequency, hematuria, incontinence, pain, , vagina discharge, urgency, others Neurological: denies: dizziness, fainting, headache, left sided numbness, left sided weakness, numbness, paresthesia, pre-existing deficit, right sided numbness, right sided weakness, seizure, speech problems, tingling, tremors, weakness, others Musculoskeletal: denies: back pain, gout, joint pain, joint swelling, muscle pain, muscle stiffness, neck pain, others Integumetry: denies: bruises, change in color, change in hair/nails, dryness, laceration, lesions, lumps, rash, wounds, others Allergic/Immunocompromised: denies: Difficulty Healing, Frequent Infections, Hives, Itching, others Hematologic/Lymphatic: denies: anemia, blood clots, easy bleeding, easy bruising, swollen glands, others Endocrine: denies: excessive hunger, excessive sweating, excessive thirst, excessive urination, flushing, intolerance to cold, intolerance to heat, unexplained weight gain, unexplained weight loss, others Psychiatric: denies: anxiety, bipolar disorder, depression, hopeless, panic disorder, schizophrenia, sleepless, suicidal, others All Other Systems: Reviewed and Negative Physical Exam General Appearance: Moderate Distress HEENT: Normal ENT Inspection, Pharynx Normal, TMs Normal Neck: Full Range of Motion, Non-Tender, Normal, Normal Inspection Respiratory: Chest Non-Tender, Lungs Clear, No Accessory Muscle Use, No Respiratory Distress, Normal Breath Sounds Cardiovascular: No Edema, No JVD, No Murmur, No Gallop, Normal Peripheral Pulses, Regular Rate/Rhythm Breast Exam: Deferred Gastrointestinal: No Organomegaly, Non Tender, No Pulsatile Mass, Normal Bowel Sounds, Soft Genitalia: Deferred Pelvic: Deferred Rectal: Deferred Extremities: No calf tenderness, Normal capillary refill, Normal inspection, Normal range of motion, Non-tender, No pedal edema Musculoskeletal : Apperance: Normal Neurologic: Alert, 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 Was a procedure done?: No Differential Dx Considerations may include: Worsening kidney function, Heart failure exacerbation,Diabetic gastroparesis, Electrolyte imbalances,Opportunistic infections, Medication interactions, Gastroenteritis X-Ray, Labs, Meds, VS Vital Signs Date Time Temp Pulse Resp B/P (MAP) Pulse Ox O2 Delivery O2 Flow Rate FiO2 04/19/25 13:04 97 04/19/25 13:01 98 04/19/25 12:59 97.5 96 18 150/94 100 97.5 Lab Test 04/19/25 14:22 Range/Units White Blood Count 10.1 4.4-10.8 10^3/uL Red Blood Count 4.39 4.0-5.20 10^6/uL Hemoglobin 12.0 L 12.2-16.2 g/dL Hematocrit 38.4 36.0-46.0 % Mean Corpuscular Volume 87.5 80.0-100.0 fL Mean Corpuscular Hemoglobin 27.4 L 28.0-32.0 pg Mean Corpuscular Hemoglobin Concent 31.3 L 32.0-36.0 g/dL Red Cell Distribution Width 18.9 H 11.8-14.3 % Platelet Count 466 H 140-450 10^3/uL Mean Platelet Volume 8.5 6.9-10.8 fL Neutrophils (%) (Auto) 83.4 H 37.0-80.0 % Lymphocytes (%) (Auto) 9.1 L 10.0-50.0 % Monocytes (%) (Auto) 6.2 0.0-12.0 % Eosinophils (%) (Auto) 0.4 0.0-7.0 % Basophils (%) (Auto) 0.9 0.0-2.0 % Neutrophils # (Auto) 8.4 1.6-8.6 10 ^3/uL Lymphocytes # (Auto) 0.9 0.4-5.4 10 ^3/uL Monocytes # (Auto) 0.6 0-1.3 10 ^3/uL Eosinophils # (Auto) 0 0-0.8 10 ^3/uL Basophils # (Auto) 0.1 0-0.2 10 ^3/uL Nucleated Red Blood Cells 0.2 % Sodium Level 130 L 136-145 mmol/L Potassium Level 4.7 3.5-5.1 mmol/L Chloride Level 88 L 98-107 mmol/L Carbon Dioxide Level 22 20-31 mmol/L Anion Gap 20 H 5-15 Blood Urea Nitrogen 27 H 9-23 mg/dL Creatinine 1.91 H 0.550-1.02 mg/dL Glomerular Filtration Rate Calc 31 >90 mL/min BUN/Creatinine Ratio 14.1 10.0-20.0 Serum Glucose 268 H 74-106 mg/dL Calcium Level 10.9 H 8.7-10.4 mg/dL Total Bilirubin 0.6 0.2-1.0 mg/dL Aspartate Amino Transferase (AST) 15 13-40 U/L Alanine Aminotransferase (ALT) < 9 7-40 U/L Alkaline Phosphatase 108 46-116 U/L Troponin I High Sensitivity 48 *H </=34 ng/L Total Protein 7.9 5.7-8.2 g/dL Albumin 4.3 3.2-4.8 g/dL Lipase 23 12-53 U/L Patient alert. Complaining of generalized weakness. Chronic history. Vitals stable. Answering all questions. Cardiac marker slightly elevated pain EKG reviewed does not show any acute changes pain One lead does show minor change but no acute process. Spoke with Cardiology. Echocardiogram. Was given Lovenox. Lipase within normal limits. Chronic kidney function. Blood sugar elevated. Explained to the patient. Continue monitoring. Time of 1ST Reevaluation: 13:08 Reevaluation 1ST: Unchanged Patient Education/Counseling: Diagnosis, Treatment, Prognosis Family Education/Counseling: No Family Present SEPSIS Sepsis Screen Physician Orders Electrocardigram (04/19/25 13:19) Urinalysis (04/19/25 13:32) Troponin-I Hs (04/19/25 14:32) Enoxaparin Sodium (Lovenox) (04/19/25 15:45) * Cardiology Consult (04/19/25 15:32) Vital Signs Date Time Temp Pulse Resp B/P (MAP) Pulse Ox O2 Delivery O2 Flow Rate FiO2 04/19/25 13:04 97 04/19/25 13:01 98 04/19/25 12:59 97.5 96 18 150/94 100 97.5 Laboratory Tests Test 04/19/25 14:22 White Blood Count 10.1 10^3/uL (4.4-10.8) Departure 1 Departure Time of Disposition: 15:34 Impression: Primary Impression: Uncontrolled diabetes mellitus Qualified Codes: E13.65 - Other specified diabetes mellitus with hyperglycemia Additional Impressions: Generalized weakness Chronic kidney disease Qualified Codes: N18.9 - Chronic kidney disease, unspecified Disposition: ADMITTED INPATIENT Admit to: Med Surg Condition: Guarded Critical Care Note Critical Care Time?: Yes Stability Stability form required: No Heart Score Heart Score: Heart Score Response (Comments) Value History Slightly Suspicious 0 EKG Normal 0 Age 45-64 1 Risk Factors >3 or Hx ASHD 2 Troponin 1-2 x's Normal limit 1 Total 4 I personally scribed for GRACIE CASTELLON MD ([email or web address]) on 04/19/25 at 13:17. Electronically submitted by Carey Faria ([facility]). GRACIE CASTELLON MD Apr 19, 2025 13:17
[2025-04-19 13:30] VITALS: PULSE 91; RESP 21; O2SAT 99
[2025-04-19 14:44] LABS: Hematocrit 38.4 % (36.0-46.0); Hemoglobin 12.0 g/dL (12.2-16.2); Mean Corpuscular Hemoglobin 27.4 pg (28.0-32.0); Mean Corpuscular Volume 87.5 fL (80.0-100.0); Nucleated Red Blood Cells % 0.2 %
[2025-04-19 14:59] LABS: Albumin 4.3 g/dL (3.2-4.8); Alkaline Phosphatase 108 U/L (46-116); Anion Gap 20 (5-15); BUN/Creatinine Ratio 14.1 (10.0-20.0); Bilirubin, Total 0.6 mg/dL (0.2-1.0); Carbon Dioxide 22 mmol/L (20-31); Lipase 23 U/L (12-53); Potassium 4.7 mmol/L (3.5-5.1); Total Protein 7.9 g/dL (5.7-8.2)
[2025-04-19 15:22] LABS: Alanine Aminotransferase < 9 U/L (7-40); Blood Urea Nitrogen 27 mg/dL (9-23); Calcium 10.9 mg/dL (8.7-10.4); Chloride 88 mmol/L (98-107); Glucose 268 mg/dL (74-106); Sodium 130 mmol/L (136-145)
[2025-04-19] MEDS: ENOXAPARIN SOD 80 MG/0.8ML SYRINGE SC ONE (15:56)
--- NOTE | 2025-04-19 16:11 | DVHHP2 ---
Admitting Diagnosis: Generalize weakness History of Present Illness 54 y.o female with an extensive PMHx that includes RI, HTN, CHF, DM, and osteomyelitis, presents to the ED via EMS for a chief complaint of generalized weakness associated with nausea and vomiting that started one week ago. Patient has not been able to hold any solids, liquids or medication down due to persistent vomiting. She denies any abdominal pain, chest pain, or shortness of breath. She reports no fever, chills, or diarrhea. EMS noted blood glucose BG of 247. PAST MEDICAL HISTORY: CHF, DM, HTN, RI Surgical History (Other): kidney transplant x 2014 and a failed pancreas transplant x 2017 Allergies: Coded Allergies: NO KNOWN ALLERGIES (Unverified , 04/19/25) Current Medications Current Medications Medications (Trade) Dose Ordered Sig/Dottie Route PRN Reason Start Time Stop Time Status Last Admin Sodium Chloride (Saline Lock Ns) 10 ml Q8HR IV 04/19/25 22:00 UNV Docusate Sodium (Colace Capsule) 100 mg BIDPRN PRN PO FOR CONSTIPATION 04/19/25 18:00 UNV Acetaminophen (Tylenol Tablet) 650 mg Q6HP PRN PO PAIN SCALE 1-3 OR TEMP>100.4 04/19/25 18:00 UNV Acetaminophen/ Hydrocodone Bitart ([place] 5/325MG Tab) 1 tab Q4HP PRN PO MODERATE PAIN (4-6 PAIN SCALE) 04/19/25 18:00 UNV Hydromorphone HCl (Dilaudid Injection) 0.5 mg Q4HP PRN IV SEVERE PAIN (7-10 PAIN SCALE) 04/19/25 18:00 UNV Ondansetron HCl (Zofran) 4 mg Q4HP PRN IV NAUSEA / VOMITING 04/19/25 18:00 UNV Diagnostic Test (Pha) (Accu-Chek Comfort Curve T) 1 strip ACHS 04/19/25 22:00 UNV Insulin Human Regular (InsuLIN R) ACHS SC 04/19/25 22:00 UNV Dextrose 50 ml UD PRN IV Blood Sugar LESS THAN 60 04/19/25 18:00 UNV Insulin Glargine (Lantus) 12 units HS SC 04/19/25 22:00 UNV Insulin Human Lispro (HumaLOG) 4 units TID SC 04/19/25 22:00 UNV Vital Signs Vital Signs Date Time Temp Pulse Resp B/P (MAP) Pulse Ox O2 Delivery O2 Flow Rate FiO2 04/19/25 15:00 90 18 149/79 (102) 99 04/19/25 13:30 Room Air* 0 21 04/19/25 13:18 98.4 98.4 Physical Exam Generally-54 years old woman, well nourished well developed. No apparent distress HEENT-atraumatic normocephalic Heart-regular rate and rhythm Lungs clear to auscultate bilaterally Abdomen soft nontender nondistended Musculoskeletal-no edema cyanosis Neuro-AO x3, no focal deficits SEPSIS Sepsis Screen Date sepsis recognized/suspect: Apr 19, 2025 Time Sepsis recognized/suspect: 1257 Recent Procedure: No On Antibiotic Therapy: No Respiratory Rate >20: No Heart Rate >90: Yes Temp<36 C (96.8 F) or >38.3 C: No SBP <90 or MAP <65 mmHG: No New Acute Mental Status Change: No Is the patient on CPAP, BIPAP,: No Physician Orders Electrocardigram (04/19/25 13:19) Urinalysis (04/19/25 13:32) * Cardiology Consult (04/19/25 15:32) *[facility] (04/19/25 16:11) Echo 2d Mode Cardiac Dop (04/19/25 16:11) Cardiac Diet-2gna,Lofat,Lochol (04/19/25 Dinner) Renal Transplant (04/19/25 16:16) Sodium Chloride 0.9% (04/19/25 16:45) Admit (04/19/25 17:46) Code Status (04/19/25 17:46) Vital Signs .PER UNIT PROTOCOL (04/19/25 17:46) Review Orders With Adm.Md (04/19/25 17:46) Encourage Activity As Tolerate (04/19/25 17:46) Sodium Chloride Lock (Saline Lock Ns) (04/19/25 22:00) Docusate Sodium Capsule (Colace Capsule) (04/19/25 18:00) Acetaminophen Tablet (Tylenol Tablet) (04/19/25 18:00) Notify Md Of Changes From Base (04/19/25 17:46) Advance Directive (04/19/25 17:46) Patient Condition (04/19/25 17:46) Allergies (04/19/25 17:46) Hydrocodone-Acet 5/325mg Tab ([place] 5/32 (04/19/25 18:00) Hydromorphone Injection (Dilaudid Inject (04/19/25 18:00) Ondansetron Hcl (Zofran) (04/19/25 18:00) Glucose Blood (Accu-Chek Comfort Curve T (04/19/25 22:00) Mild Sliding Scale (04/19/25 22:00) Dextrose 50% Syringe (04/19/25 18:00) Insulin Lantus (Glargine) (Lantus) (04/19/25 22:00) Insulin Lispro (Human) (Humalog) (04/19/25 22:00) Heparin Sodium (Porcine) (04/19/25 22:00) Renal Standard(2gna,3gk,Lopho) (04/19/25 Dinner) Vital Signs Date Time Temp Pulse Resp B/P (MAP) Pulse Ox O2 Delivery O2 Flow Rate FiO2 04/19/25 15:00 90 18 149/79 (102) 99 04/19/25 14:00 88 18 149/78 (101) 100 04/19/25 13:30 91 21 99 Room Air* 0 21 04/19/25 13:18 98.4 91 21 139/74 (95) 99 98.4 04/19/25 13:04 97 04/19/25 13:01 98 04/19/25 12:59 97.5 96 18 150/94 100 97.5 Laboratory Tests Test 04/19/25 14:22 White Blood Count 10.1 10^3/uL (4.4-10.8) Medications Medications Dose Ordered Sig/Dottie Route Start Time Stop Time Status Last Admin Dose Admin Enoxaparin Sodium 70 mg ONCE ONCE SC 04/19/25 15:45 04/19/25 15:46 DC 04/19/25 15:56 Sodium Chloride 1,000 ml @ 150 mls/hr Q6H40M ONCE IV 04/19/25 16:45 04/19/25 23:24 04/19/25 16:43 Results Labs Test 04/19/25 15:41 04/19/25 14:22 Range/Units Troponin I High Sensitivity 49 *H </=34 ng/L White Blood Count 10.1 4.4-10.8 10^3/uL Red Blood Count 4.39 4.0-5.20 10^6/uL Hemoglobin 12.0 L 12.2-16.2 g/dL Hematocrit 38.4 36.0-46.0 % Mean Corpuscular Volume 87.5 80.0-100.0 fL Mean Corpuscular Hemoglobin 27.4 L 28.0-32.0 pg Mean Corpuscular Hemoglobin Concent 31.3 L 32.0-36.0 g/dL Red Cell Distribution Width 18.9 H 11.8-14.3 % Platelet Count 466 H 140-450 10^3/uL Mean Platelet Volume 8.5 6.9-10.8 fL Neutrophils (%) (Auto) 83.4 H 37.0-80.0 % Lymphocytes (%) (Auto) 9.1 L 10.0-50.0 % Monocytes (%) (Auto) 6.2 0.0-12.0 % Eosinophils (%) (Auto) 0.4 0.0-7.0 % Basophils (%) (Auto) 0.9 0.0-2.0 % Neutrophils # (Auto) 8.4 1.6-8.6 10 ^3/uL Lymphocytes # (Auto) 0.9 0.4-5.4 10 ^3/uL Monocytes # (Auto) 0.6 0-1.3 10 ^3/uL Eosinophils # (Auto) 0 0-0.8 10 ^3/uL Basophils # (Auto) 0.1 0-0.2 10 ^3/uL Nucleated Red Blood Cells 0.2 % Sodium Level 130 L 136-145 mmol/L Potassium Level 4.7 3.5-5.1 mmol/L Chloride Level 88 L 98-107 mmol/L Carbon Dioxide Level 22 20-31 mmol/L Anion Gap 20 H 5-15 Blood Urea Nitrogen 27 H 9-23 mg/dL Creatinine 1.91 H 0.550-1.02 mg/dL Glomerular Filtration Rate Calc 31 >90 mL/min BUN/Creatinine Ratio 14.1 10.0-20.0 Serum Glucose 268 H 74-106 mg/dL Calcium Level 10.9 H 8.7-10.4 mg/dL Total Bilirubin 0.6 0.2-1.0 mg/dL Aspartate Amino Transferase (AST) 15 13-40 U/L Alanine Aminotransferase (ALT) < 9 7-40 U/L Alkaline Phosphatase 108 46-116 U/L Total Protein 7.9 5.7-8.2 g/dL Albumin 4.3 3.2-4.8 g/dL Lipase 23 12-53 U/L Primary Diagnosis Elevated troponin rule out ACS Generalized weakness LAINE on CKD Hyperglycemia Plan Patient states that he was prescribed insulin endocrinology without obstruction. Patient with the urine herself lispro twice a day rate and rhythm nine with a skeletal. Start Lantus 12 units q.a.c. HS Humalog for his preprandial Insulin sliding scale Diabetic teaching Check A1c level Troponin plateau. Check echo of the heart to rule out ACS Cardiology consult Patient has been having vomiting and unable to tolerate antirejection medication. Pharmacy medication reconciliation Nephrology consult Ultrasound renal Renal diet Full code Heparin for DVT prophylaxis No GI prophylaxis needed Plan discussed with: Patient Problems List: (1) Uncontrolled diabetes mellitus Status: Acute (2) Chronic kidney disease Status: Acute (3) Generalized weakness Status: Acute Date of Service: Apr 19, 2025 Billing Provider: LUIS ALBERTO ART MD Common Visit Codes: [id number] INP/OBS CARE (HIGH) LUIS ALBERTO ART MD Apr 19, 2025 16:11
[2025-04-19] MEDS: SODIUM CHLORIDE 0.9% 1,000 ML IV ONE (16:43)
--- NOTE | 2025-04-19 17:47 | DVH ---
INDICATION: davie on ckd TECHNIQUE: Multiple real-time sonographic images of the kidneys and bladder were obtained. Duplex Doppler evaluation including color Doppler and spectral/pulsed waveform analysis of the bilate ral renal arteries was performed. COMPARISON: None FINDINGS: Right kidney measures 8.0 cm. Left kidney measures 9.3 cm. Left kidney transplant seen in the lower pelvic region. [place] kidneys appear echogenic with multiple calcifications throughout. Small cysts seen in the colin l transplant. No evidence of renal artery stenosis of the left renal transplant at this time. IMPRESSION: No evidence of transplant left renal artery stenosis. 1. No obstructive uropathy. *Danilo Landin [employer] in Noninvasive Vascular Diagnosis 2002
[2025-04-19] MEDS ORDERED: ACETAMINOPHEN 325 MG TAB PO PRN (18:00)
[2025-04-19] MEDS ORDERED: DOCUSATE SOD 100 MG CAP PO PRN (18:00)
[2025-04-19] MEDS ORDERED: HYDROcodone-ACET 5/325MG TAB PO PRN (18:00)
[2025-04-19] MEDS ORDERED: DEXTROSE (50%) 50ML SYRG IV PRN (18:00)
[2025-04-19] MEDS: HYDROmorphone HCL 2 MG/ML VL/or syr IV PRN (19:21)
[2025-04-19] MEDS: ONDANSETRON HCL 4 MG/2 ML VIAL IV PRN (19:22)
[2025-04-19] MEDS: methylPREDNISolone SOD SUCC 125 MG/2 ML VL ONE (19:56)
[2025-04-19 20:00] VITALS: BP 140/80; PULSE 89; RESP 18; O2SAT 98
[2025-04-19] MEDS: SODIUM CHLOR 0.9% PF (SALINE LOCK) 10ML VIAL/SYR IV SCH (22:00)
[2025-04-19] MEDS: ACCU-CHEK COMFORT CURVE STRIP VI SCH (22:00)
[2025-04-19] MEDS: InsuLIN REG 1unit/0.01ml Soln (100units/ml) SC SCH (22:28)
[2025-04-19] MEDS: INSULIN LISPRO (HUMAN) 100 UNITS/ML ML SC SCH (22:29)
[2025-04-19] MEDS: INSULIN LANTUS (GLARGINE) 1 /0.01ml (100units/ml) SC SCH (22:30)
[2025-04-19] MEDS: HEPARIN SODIUM (PORCINE) 5000 UNITS/ML 1ML VIAL SC SCH (22:32)
[2025-04-19 23:56] VITALS: BP 132/73; PULSE 84; RESP 18; TEMP 98.2
[2025-04-20] VITALS (9 sets, daily range): BP systolic 140–178; BP diastolic 88–112; PULSE 80–95; RESP 14–18; TEMP 97.2–98.4; O2SAT 94–100
[2025-04-20 12:21] LABS: Potassium 4.1 mmol/L (3.5-5.1)
[2025-04-20 12:22] LABS: Anion Gap 12 (5-15); Carbon Dioxide 28 mmol/L (20-31)
[2025-04-20 12:23] LABS: Calcium 10.3 mg/dL (8.7-10.4)
[2025-04-20 12:25] LABS: Chloride 94 mmol/L (98-107); Sodium 134 mmol/L (136-145)
[2025-04-20 12:27] LABS: BUN/Creatinine Ratio 10.2 (10.0-20.0); Blood Urea Nitrogen 19 mg/dL (9-23)
[2025-04-20 12:30] LABS: Glucose 135 mg/dL (74-106)
--- NOTE | 2025-04-20 15:34 | DVHINCON2 ---
Date of service: Apr 20, 2025 Referring Physician Hardik Hand MD Reason for Consultation Elevated creatinine History of Present Illness This is a 54-year-old female with history of kidney transplant in 2014, status post pancreatic transplant in 2019 which failed presenting to the emergency room complaining of nausea and vomiting which has been going on for about a week. Denies any diarrhea. Nephrology has been consulted because of a creatinine of 1.9. Patient is not sure of her baseline GFR. Patient seen and examined at bedside. Feeling better. Denies any abdominal pain. Past Medical History Chronic kidney disease secondary to diabetic nephropathy Coronary artery disease Congestive heart failure Hypertension Type 2 diabetes History of osteomyelitis Past Surgical History kidney transplant x 2014 and a failed pancreas transplant x 2017 Family History: Cerebrovascular accident (CVA) G8 MOTHER FH: myocardial infarction G8 FATHER Seizure disorder G8 MOTHER Family History Denies any history of kidney disease Social History Denies any active history of smoking alcohol or drug abuse Allergies: Coded Allergies: NO KNOWN ALLERGIES (Unverified , 04/19/25) Home Meds Reported Medications Insulin Lispro Protamine & Lis (Humalog Mix / Kwikpen) 75 Mg/25 Kwp Inj, 75 MG SC, INJ 04/20/25 Insulin Lispro (Insulin Lispro) 100 Unit/Ml Inj, 100 UNIT IJ, INJ 04/20/25 Phenazopyridine HCl (Eq Urinary Pain Relief Ma) 99.5 Mg Tab, 99.5 MG PO, TAB 04/20/25 Nitrofurantoin (Nitrofurantoin) 100 Mg Cap, 1 CAP PO BID, #20 CAP 04/20/25 Ondansetron HCl (Ondansetron Hydrochloride) 4 Mg Tab, 4 MG PO Q6HPRN, TAB 04/20/25 Pregabalin (Lyrica) 150 Mg Cap, 1 CAP PO BID, #60 CAP 5 Refills 04/20/25 Allopurinol (Allopurinol) 100 Mg Tab, 100 MG PO DAILY for 30 Days, MG 04/20/25 Methenamine Hippurate (Methenamine Hippurate) 1 Gm Tab, 1 GM PO BID, TAB 04/20/25 Clopidogrel Bisulfate (CLOPIDOGREL) 75 Mg Tab, 75 MG PO DAILY for 30 Days, MG 04/20/25 Ergocalciferol (Drisdol) 50,000 Unit Cap, 98457 UNIT PO, CAP 04/20/25 Furosemide (Furosemide) 40 Mg Tab, 40 MG PO DAILY for 30 Days 04/20/25 Spironolactone (Spironolactone) 25 Mg Tab, 2 TAB PO DAILY, #90 TAB 1 Refill 04/20/25 Prednisone (Prednisone) 5 Mg Tab, 5 MG PO DAILY, TAB 04/20/25 Ferrous Sulfate (Ferrous Sulfate) 325 Mg Tab, 325 MG PO BID for 30 Days, MG 04/20/25 Atorvastatin Calcium (ATORVASTATIN CALCIUM) 80 Mg Tab, 1 TAB PO DAILY, #30 TAB 5 Refills 04/20/25 Ropinirole Hydrochloride (Ropinirole Hcl) 0.5 Mg Tab, 0.5 MG PO HS, TAB 04/20/25 Metoprolol Tartrate (Metoprolol Tartrate) 25 Mg Tab, 25 MG PO BID for 30 Days, MG 04/20/25 Tacrolimus (Tacrolimus) 1 Mg Cap, 1 MG PO BIDAC, CAP two capsules 04/20/25 Pantoprazole Sodium (PANTOPRAZOLE SODIUM) 40 Mg Inj, 40 MG PO DAILY, INJ 04/20/25 Mycophenolate Sodium (Mycophenolic Acid Dr) 360 Mg Tab, 360 MG PO BIDAC, TAB 04/20/25 Current Medications Current Medications Medications (Trade) Dose Ordered Sig/Dottie Route PRN Reason Start Time Stop Time Status Last Admin Sodium Chloride (Saline Lock Ns) 10 ml Q8HR IV 04/19/25 22:00 04/20/25 15:09 Docusate Sodium (Colace Capsule) 100 mg BIDPRN PRN PO FOR CONSTIPATION 04/19/25 18:00 Acetaminophen (Tylenol Tablet) 650 mg Q6HP PRN PO PAIN SCALE 1-3 OR TEMP>100.4 04/19/25 18:00 Acetaminophen/ Hydrocodone Bitart ([place] 5/325MG Tab) 1 tab Q4HP PRN PO MODERATE PAIN (4-6 PAIN SCALE) 04/19/25 18:00 Hydromorphone HCl (Dilaudid Injection) 0.5 mg Q4HP PRN IV SEVERE PAIN (7-10 PAIN SCALE) 04/19/25 18:00 04/19/25 19:21 Ondansetron HCl (Zofran) 4 mg Q4HP PRN IV NAUSEA / VOMITING 04/19/25 18:00 04/20/25 12:59 Diagnostic Test (Pha) (Accu-Chek Comfort Curve T) 1 strip ACHS 04/19/25 22:00 04/20/25 11:30 Insulin Human Regular (InsuLIN R) ACHS SC 04/19/25 22:00 04/20/25 12:56 Dextrose 50 ml UD PRN IV Blood Sugar LESS THAN 60 04/19/25 18:00 Insulin Glargine (Lantus) 12 units HS SC 04/19/25 22:00 04/19/25 22:30 Insulin Human Lispro (HumaLOG) 4 units TID SC 04/19/25 22:00 04/20/25 14:00 Heparin Sodium (Porcine) 5,000 units Q12HR SC 04/19/25 22:00 04/20/25 09:54 Prednisone 5 mg DAILY PO 04/21/25 10:00 UNV Tacrolimus (Prograf) 2 mg BID PO 04/20/25 22:00 UNV Mycophenolate Mofetil (Cellcept) 500 mg BID PO 04/20/25 22:00 UNV Review of Systems 12 point review of systems negative except as stated in the HPI Vital Signs Vital Signs Date Time Temp Pulse Resp B/P (MAP) Pulse Ox O2 Delivery O2 Flow Rate FiO2 04/20/25 12:30 98.0 92 14 163/96 (118) 100 98.0 04/20/25 08:00 Room Air* 0 21 Physical Exam Awake alert oriented x3 HEENT: Normocephalic, no JVD Lungs: Bilateral good air entry CVS: S1, S2 regular rate rhythm Abdomen: Soft, bowel sounds present RESTORATIVE AIDE: No focal deficits Extremities: No edema Labs/Diagnostic Data Labs Test 04/20/25 12:13 04/20/25 11:45 04/19/25 15:41 04/19/25 14:22 Range/Units POC Glucose 141 H 70-106 mg/dl Sodium Level 134 L 136-145 mmol/L Potassium Level 4.1 3.5-5.1 mmol/L Chloride Level 94 L 98-107 mmol/L Carbon Dioxide Level 28 20-31 mmol/L Anion Gap 12 5-15 Blood Urea Nitrogen 19 9-23 mg/dL Creatinine 1.86 H 0.550-1.02 mg/dL Glomerular Filtration Rate Calc 32 >90 mL/min BUN/Creatinine Ratio 10.2 10.0-20.0 Serum Glucose 135 H 74-106 mg/dL Calcium Level 10.3 8.7-10.4 mg/dL Troponin I High Sensitivity 49 *H </=34 ng/L White Blood Count 10.1 4.4-10.8 10^3/uL Red Blood Count 4.39 4.0-5.20 10^6/uL Hemoglobin 12.0 L 12.2-16.2 g/dL Hematocrit 38.4 36.0-46.0 % Mean Corpuscular Volume 87.5 80.0-100.0 fL Mean Corpuscular Hemoglobin 27.4 L 28.0-32.0 pg Mean Corpuscular Hemoglobin Concent 31.3 L 32.0-36.0 g/dL Red Cell Distribution Width 18.9 H 11.8-14.3 % Platelet Count 466 H 140-450 10^3/uL Mean Platelet Volume 8.5 6.9-10.8 fL Neutrophils (%) (Auto) 83.4 H 37.0-80.0 % Lymphocytes (%) (Auto) 9.1 L 10.0-50.0 % Monocytes (%) (Auto) 6.2 0.0-12.0 % Eosinophils (%) (Auto) 0.4 0.0-7.0 % Basophils (%) (Auto) 0.9 0.0-2.0 % Neutrophils # (Auto) 8.4 1.6-8.6 10 ^3/uL Lymphocytes # (Auto) 0.9 0.4-5.4 10 ^3/uL Monocytes # (Auto) 0.6 0-1.3 10 ^3/uL Eosinophils # (Auto) 0 0-0.8 10 ^3/uL Basophils # (Auto) 0.1 0-0.2 10 ^3/uL Nucleated Red Blood Cells 0.2 % Total Bilirubin 0.6 0.2-1.0 mg/dL Aspartate Amino Transferase (AST) 15 13-40 U/L Alanine Aminotransferase (ALT) < 9 7-40 U/L Alkaline Phosphatase 108 46-116 U/L Total Protein 7.9 5.7-8.2 g/dL Albumin 4.3 3.2-4.8 g/dL Lipase 23 12-53 U/L Assessment Acute kidney injury superimposed on Chronic kidney disease secondary to volume depletion due to nausea and vomiting History of kidney transplant Diabetes mellitus Hypertension History of coronary artery disease History of congestive heart failure Plan/Recommendation Start patient on isotonic saline at 75 mL/hr Continue her immunosuppressive therapy which includes prednisone, CellCept and Prograf. Renal ultrasound within normal limits Labs in a.m.. Plan discussed with: Patient KVNG BAEZ MD Apr 20, 2025 15:34
--- NOTE | 2025-04-20 15:51 | DVHSR ---
APPROVED REPORT EXAM: Two-dimensional and M-mode echocardiogram with Doppler and color Doppler. Blood Pressure: 140/88 mmHg INDICATION Elevated Trops r/o ACS RISK FACTORS Height: 5' 6", Weight: 158 DIMENSIONS LVDd4.8 (3.8-5.7cm)LA (2D)2.9 (1.9-4.0cm)Aortic Root3.3 (2.0-3.7cm) LVDs4.1 (2.5-4.0cm)LA (MM) (1.9-4.0cm)Aortic Cusp Exc1.5 (1.5-2.0cm) EF (%) 40.0 (55-70%)Rt. Atrium3.1 (1.9-4.0cm)Asc. Aorta cm IVSd1.7 (0.7-1.1cm)RV (D) (1.8-2.4cm) PWd1.0 (0.7-1.1cm) Mitral Valve MitralMitral Stenosis E wave0.70m/sMV Mean GR.mmHg A wave1.50m/sMV Peak GR.mmHg E/A ratio0.52D MVAcm2 Aortic Valve Aortic ValveAortic Stenosis V11.00m/Umberto Mean GR.4mmHg V21.40m/Umberto Peak GR.8mmHg LVOT Diameter2.1 (1.8-2.4cm)Doppler AVA2.47cm2 Pulmonic Valve V21.10m/s Conclusion Sinus rhythm. Concentric LVH with biatrial enlargement. Mild mitral annular calcification. Valves are normal. Left ventricular function is preserved. Systolic function is at a proximally 60%. There is impaired diastolic relaxation and notable degree. Inflow patterns suggest impaired diastolic relaxation. Moderate tricuspid regurgitation. No pericardial effusion masses or vegetations discernible.
[2025-04-20] MEDS: SODIUM CHLORIDE 0.9% 1,000 ML IV SCH (18:32)
--- NOTE | 2025-04-20 19:31 | DVHPN2 ---
Subjective Patient doing well, seen at bedside today. Reviewed: Care Plan Changes from previous H/P or p: No Changes General: Per HPI Objective Vitals Vital Signs Date Time Temp Pulse Resp B/P (MAP) Pulse Ox O2 Delivery O2 Flow Rate FiO2 04/20/25 19:04 81 16 118/62 04/20/25 16:30 97.2 100 97.2 04/20/25 08:00 Room Air* 0 21 Intake/Output Intake and Output 04/20/25 07:00 Intake Total 200 ml Output Total 0 ml Balance 200 ml Intake Oral 200 ml Output Urine Total 0 ml Exam GEN: Healthy appearing, well-developed, NAD. HEENT: NC/AT; MMM. CV: RRR, no m/r/g. LUNGS: CTAB, no w/r/c. ABD: Soft, NT/ND, NBS, no masses or organomegaly. EXT: skin Warm, well perfused. no rashes. No clubbing, cyanosis, or edema. NEURO: Ambulating with no limitations. No focal deficits. Medications Current Medications Medications Dose Ordered Sig/Dottie Route Start Time Stop Time Status Last Admin Dose Admin Sodium Chloride 10 ml Q8HR IV 04/19/25 22:00 04/20/25 15:09 10 ML Docusate Sodium 100 mg BIDPRN PRN PO 04/19/25 18:00 Acetaminophen 650 mg Q6HP PRN PO 04/19/25 18:00 Acetaminophen/ Hydrocodone Bitart 1 tab Q4HP PRN PO 04/19/25 18:00 Hydromorphone HCl 0.5 mg Q4HP PRN IV 04/19/25 18:00 04/20/25 18:34 0.5 MG Ondansetron HCl 4 mg Q4HP PRN IV 04/19/25 18:00 04/20/25 18:33 4 MG Diagnostic Test (Pha) 1 strip ACHS 04/19/25 22:00 04/20/25 17:00 1 STRIP Insulin Human Regular ACHS SC 04/19/25 22:00 04/20/25 18:43 3 UNITS Dextrose 50 ml UD PRN IV 04/19/25 18:00 Insulin Glargine 12 units HS SC 04/19/25 22:00 04/19/25 22:30 12 UNITS Insulin Human Lispro 4 units TID SC 04/19/25 22:00 04/20/25 14:00 4 UNITS Heparin Sodium (Porcine) 5,000 units Q12HR SC 04/19/25 22:00 04/20/25 09:54 5,000 UNITS Prednisone 5 mg DAILY PO 04/21/25 10:00 Tacrolimus 2 mg BID PO 04/20/25 22:00 Mycophenolate Mofetil 500 mg BID PO 04/20/25 22:00 Metoprolol Tartrate 25 mg BID PO 04/20/25 22:00 Sodium Chloride 1,000 ml @ 75 mls/hr [id number] IV 04/20/25 15:30 04/20/25 18:32 75 MLS/HR Ceftriaxone Sodium 50 ml @ 100 mls/hr DAILY@09 IV 04/21/25 09:00 Metronidazole 100 ml @ 100 mls/hr Q8HR IV 04/20/25 22:00 Laboratory Results Laboratory Tests 04/19/25 14:22 04/20/25 11:45 Chemistry Test 04/20/25 11:45 Calcium Level 10.3 mg/dL (8.7-10.4) Labs and/or images reviewed: Labs reviewed by me, Image(s) reviewed by me Assessment/Plan Assessment/Plan 54 y.o female with an extensive PMHx that includes OR, HTN, CHF, DM, and osteomyelitis, presents to the ED via EMS for a chief complaint of generalized weakness associated with nausea and vomiting that started one week ago. Patient has not been able to hold any solids, liquids or medication down due to persistent vomiting. She denies any abdominal pain, chest pain, or shortness of breath. She reports no fever, chills, or diarrhea. EMS noted blood glucose BG of 247. Gastroenteritis Intractable nausea and vomiting due to above Tachycardia Tachypnea Sirs with AOD (laine) Type 2 NSTEMI Diabetes with hyperglycemia LAINE due to VMN, on CKD Thrombocytosis Neutrophilia Anemia normocytic History of OR CHF History osteomyelitis Plan IV antibiotics Prn pain control Prn antiemetics Slow IV fluids Plan discussed with: Patient My Orders Orders - LAKSHMI RIGGINS MD Procedure Category Date Status Time Cleanse Wound With DEMETRIA 04/20/25 In Process Wound Clean 12:00 Ceftriaxone 1gm/50ml PHA 04/21/25 In Process D5w (Rocephin) 09:00 Metronidazole PHA 04/20/25 In Process 500mg/100ml (Flagyl 22:00 Insert [place] Catheter DEMETRIA 04/20/25 In Process 19:06 * Cardiology Consult CONS 04/20/25 Transmitted 19:23 Date of Service: Apr 20, 2025 Billing Provider: LAKSHMI RIGGINS MD Common Visit Codes: [id number] INP/OBS CARE(HIGH) LAKSHMI RIGGINS MD Apr 20, 2025 19:31
[2025-04-20] MEDS: MYCOPHENOLATE 500 MG TAB PO SCH (22:00)
[2025-04-20] MEDS: TACROLIMUS 1 MG CAP PO SCH (22:00)
[2025-04-20] MEDS: METOPROLOL TARTRATE 25 MG TAB PO SCH (23:54)
[2025-04-21] VITALS (9 sets, daily range): BP systolic 157–169; BP diastolic 77–96; PULSE 69–98; RESP 18–19; TEMP 97.6–98.8; O2SAT 93–99
[2025-04-21 08:45] LABS: Hematocrit 33.2 % (36.0-46.0); Hemoglobin 10.7 g/dL (12.2-16.2); Mean Corpuscular Hemoglobin 27.4 pg (28.0-32.0); Mean Corpuscular Volume 85.0 fL (80.0-100.0); Nucleated Red Blood Cells % 0.3 %
[2025-04-21 09:17] LABS: Albumin 3.6 g/dL (3.2-4.8); Alkaline Phosphatase 81 U/L (46-116); Anion Gap 12 (5-15); BUN/Creatinine Ratio 11.0 (10.0-20.0); Blood Urea Nitrogen 15 mg/dL (9-23); Calcium 9.5 mg/dL (8.7-10.4); Carbon Dioxide 28 mmol/L (20-31); Glucose 95 mg/dL (74-106); Potassium 3.7 mmol/L (3.5-5.1); Sodium 138 mmol/L (136-145); Total Protein 7.0 g/dL (5.7-8.2)
[2025-04-21 09:20] LABS: Alanine Aminotransferase < 9 U/L (7-40); Bilirubin, Total 0.2 mg/dL (0.2-1.0); Chloride 98 mmol/L (98-107)
[2025-04-21 13:44] LABS: Hepatitis B Surface Antigen Negative (Negative); Hepatitis C Antibody Negative (Negative)
--- NOTE | 2025-04-21 16:22 | DVHPN2 ---
Subjective Patient doing well, seen at bedside today. Reviewed: Care Plan Changes from previous H/P or p: No Changes General: Per HPI Objective Vitals Vital Signs Date Time Temp Pulse Resp B/P (MAP) Pulse Ox O2 Delivery O2 Flow Rate FiO2 04/21/25 13:00 97.6 86 19 169/96 (120) 98 97.6 04/21/25 07:45 Room Air* 0 21 Intake/Output Intake and Output 04/21/25 07:00 Intake Total 2200 ml Balance 2200 ml Intake Oral 2200 ml # Voids 4 Exam GEN: Healthy appearing, well-developed, NAD. HEENT: NC/AT; MMM. CV: RRR, no m/r/g. LUNGS: CTAB, no w/r/c. ABD: Soft, NT/ND, NBS, no masses or organomegaly. EXT: skin Warm, well perfused. no rashes. No clubbing, cyanosis, or edema. NEURO: Ambulating with no limitations. No focal deficits. Medications Current Medications Medications Dose Ordered Sig/Dottie Route Start Time Stop Time Status Last Admin Dose Admin Sodium Chloride 10 ml Q8HR IV 04/19/25 22:00 04/21/25 13:33 10 ML Docusate Sodium 100 mg BIDPRN PRN PO 04/19/25 18:00 Acetaminophen 650 mg Q6HP PRN PO 04/19/25 18:00 Acetaminophen/ Hydrocodone Bitart 1 tab Q4HP PRN PO 04/19/25 18:00 Hydromorphone HCl 0.5 mg Q4HP PRN IV 04/19/25 18:00 04/20/25 18:34 0.5 MG Ondansetron HCl 4 mg Q4HP PRN IV 04/19/25 18:00 04/21/25 15:50 4 MG Diagnostic Test (Pha) 1 strip ACHS 04/19/25 22:00 04/21/25 11:41 1 STRIP Insulin Human Regular ACHS SC 04/19/25 22:00 04/21/25 11:39 3 UNITS Dextrose 50 ml UD PRN IV 04/19/25 18:00 Insulin Glargine 12 units HS SC 04/19/25 22:00 04/20/25 22:06 12 UNITS Insulin Human Lispro 4 units TID SC 04/19/25 22:00 04/21/25 13:34 4 UNITS Heparin Sodium (Porcine) 5,000 units Q12HR SC 04/19/25 22:00 04/21/25 10:09 5,000 UNITS Prednisone 5 mg DAILY PO 04/21/25 10:00 04/21/25 10:14 5 MG Tacrolimus 2 mg BID PO 04/20/25 22:00 04/21/25 10:16 2 MG Mycophenolate Mofetil 500 mg BID PO 04/20/25 22:00 04/21/25 10:15 500 MG Metoprolol Tartrate 25 mg BID PO 04/20/25 22:00 04/21/25 10:14 25 MG Sodium Chloride 1,000 ml @ 75 mls/hr [id number] IV 04/20/25 15:30 04/21/25 10:17 75 MLS/HR Ceftriaxone Sodium 50 ml @ 100 mls/hr DAILY@09 IV 04/21/25 09:00 04/21/25 10:11 100 MLS/HR Metronidazole 100 ml @ 100 mls/hr Q8HR IV 04/20/25 22:00 04/21/25 13:33 100 MLS/HR Laboratory Results Laboratory Tests 04/21/25 07:00 Chemistry Test 04/21/25 07:00 Albumin 3.6 g/dL (3.2-4.8) Calcium Level 9.5 mg/dL (8.7-10.4) Total Protein 7.0 g/dL (5.7-8.2) LFT Test 04/21/25 07:00 Alanine Aminotransferase (ALT) < 9 U/L (7-40) Alkaline Phosphatase 81 U/L (46-116) Aspartate Amino Transferase (AST) 14 U/L (13-40) Total Bilirubin 0.2 mg/dL (0.2-1.0) Labs and/or images reviewed: Labs reviewed by me, Image(s) reviewed by me Assessment/Plan Assessment/Plan 54 y.o female with an extensive PMHx that includes MA, HTN, CHF, DM, and osteomyelitis, presents to the ED via EMS for a chief complaint of generalized weakness associated with nausea and vomiting that started one week ago. Patient has not been able to hold any solids, liquids or medication down due to persistent vomiting. She denies any abdominal pain, chest pain, or shortness of breath. She reports no fever, chills, or diarrhea. EMS noted blood glucose BG of 247. 04/21/2025: I am wondering if this is gastroparesis versus SBO. Elbow get upright KUB. Continue Zofran for now. If no SBO, she had faint/no vital signs today, you may have to try and Reglan. I will check A1c to evaluated this is at range of gastroparesis. Otherwise continue antibiotics. Continue IV fluids hydration. Gastroenteritis Intractable nausea and vomiting due to above Tachycardia Tachypnea Sirs with AOD (laine) Type 2 NSTEMI Diabetes with hyperglycemia LAINE due to VMN, on CKD Thrombocytosis Neutrophilia Anemia normocytic History of MA CHF History osteomyelitis Plan IV antibiotics Prn pain control Prn antiemetics Slow IV fluids Plan discussed with: Patient My Orders Orders - LAKSHMI RIGGINS MD Procedure Category Date Status Time Ceftriaxone 1gm/50ml PHA 04/21/25 In Process D5w (Rocephin) 09:00 Metronidazole PHA 04/20/25 In Process 500mg/100ml (Flagyl 22:00 * Cardiology Consult CONS 04/20/25 Transmitted 19:23 Hemoglobin A1c LAB 04/21/25 Logged 16:17 Basic Metabolic Panel LAB 04/21/25 Logged 16:17 Kub Abdomen Single XY 04/21/25 Logged View 16:17 Date of Service: Apr 21, 2025 Billing Provider: LAKSHMI RIGGINS MD Common Visit Codes: [id number] INP/OBS CARE(HIGH) LAKSHMI RIGGINS MD Apr 21, 2025 16:22
[2025-04-21 17:42] LABS: Potassium 3.9 mmol/L (3.5-5.1)
[2025-04-21 17:43] LABS: Anion Gap 12 (5-15); Calcium 9.6 mg/dL (8.7-10.4); Carbon Dioxide 27 mmol/L (20-31)
[2025-04-21 17:44] LABS: Chloride 96 mmol/L (98-107); Sodium 135 mmol/L (136-145)
[2025-04-21 17:48] LABS: BUN/Creatinine Ratio 10.1 (10.0-20.0); Blood Urea Nitrogen 13 mg/dL (9-23)
[2025-04-21 17:51] LABS: Glucose 134 mg/dL (74-106)
[2025-04-21] MEDS: METOCLOPRAMIDE HCL 5MG/ml INJ 2ml VIAL IV ONE (22:22)
--- NOTE | 2025-04-21 22:34 | DVHPN2 ---
Progress Note - Dictate Date Seen: Apr 21, 2025 Medical Necessity Reason Pt with a Central, PICC or Fol: No Subjective still with nausea Hinton cath placed vital signs Vital Sign Date Time Temp Pulse Resp B/P (MAP) Pulse Ox O2 Delivery O2 Flow Rate FiO2 04/21/25 17:00 98.2 73 18 160/79 (106) 96 98.2 04/21/25 07:45 Room Air* 0 21 Total Intake and Output 04/20/25 04/20/25 04/21/25 15:00 23:00 07:00 Intake Total 1800 ml 400 ml Balance 1800 ml 400 ml medications Current Medications Medications Dose Ordered Sig/Dottie Route Start Time Stop Time Status Last Admin Dose Admin Sodium Chloride 10 ml Q8HR IV 04/19/25 22:00 04/21/25 13:33 10 ML Docusate Sodium 100 mg BIDPRN PRN PO 04/19/25 18:00 Acetaminophen 650 mg Q6HP PRN PO 04/19/25 18:00 Acetaminophen/ Hydrocodone Bitart 1 tab Q4HP PRN PO 04/19/25 18:00 Hydromorphone HCl 0.5 mg Q4HP PRN IV 04/19/25 18:00 04/20/25 18:34 0.5 MG Ondansetron HCl 4 mg Q4HP PRN IV 04/19/25 18:00 04/21/25 15:50 4 MG Diagnostic Test (Pha) 1 strip ACHS 04/19/25 22:00 04/21/25 17:08 1 STRIP Insulin Human Regular ACHS SC 04/19/25 22:00 04/21/25 17:07 2 UNITS Dextrose 50 ml UD PRN IV 04/19/25 18:00 Insulin Glargine 12 units HS SC 04/19/25 22:00 04/20/25 22:06 12 UNITS Insulin Human Lispro 4 units TID SC 04/19/25 22:00 04/21/25 13:34 4 UNITS Heparin Sodium (Porcine) 5,000 units Q12HR SC 04/19/25 22:00 04/21/25 10:09 5,000 UNITS Prednisone 5 mg DAILY PO 04/21/25 10:00 04/21/25 10:14 5 MG Tacrolimus 2 mg BID PO 04/20/25 22:00 04/21/25 10:16 2 MG Mycophenolate Mofetil 500 mg BID PO 04/20/25 22:00 04/21/25 10:15 500 MG Metoprolol Tartrate 25 mg BID PO 04/20/25 22:00 04/21/25 10:14 25 MG Sodium Chloride 1,000 ml @ 75 mls/hr [id number] IV 04/20/25 15:30 04/21/25 10:17 75 MLS/HR Ceftriaxone Sodium 50 ml @ 100 mls/hr DAILY@09 IV 04/21/25 09:00 04/21/25 10:11 100 MLS/HR Metronidazole 100 ml @ 100 mls/hr Q8HR IV 04/20/25 22:00 04/21/25 13:33 100 MLS/HR objective Awake alert oriented x3 HEENT: Normocephalic, no JVD Lungs: Bilateral good air entry CVS: S1, S2 regular rate rhythm Abdomen: Soft, bowel sounds present [place]: No focal deficits Extremities: No edema laboratory and microbiology Laboratory Tests 04/21/25 17:18 04/21/25 07:00 Test 04/21/25 17:18 Range/Units Serum Glucose 134 H 74-106 mg/dL Problem List Acute kidney injury superimposed on Chronic kidney disease secondary to volume depletion due to nausea and vomiting History of kidney transplant Diabetes mellitus Hypertension History of coronary artery disease Diastolic heart failure Assessment/Plan GFR with improvement . Continue IVF Continue immunosuppression . Labs in AM Dietary Evaluation Review Recommendations by RD: Dietary education by RD Comments: 1) Add 60g CCHO restriction to cardiac diet 2) Collect HbA1c 3) Refer to outpatient RD/CDCES for diabetes education 4) Follow-up with cardiology 5) Continue to monitor I&O, labs, and skin integrity Expected Outcomes/Goals: 1) appetite and labs to improve 2) GI symptoms to resolve 3) f/u in 3-5 days Plan discussed with: Patient KVNG BAEZ MD Apr 21, 2025 22:34
[2025-04-22] VITALS (9 sets, daily range): BP systolic 137–160; BP diastolic 78–99; PULSE 70–87; RESP 17–20; TEMP 96.3–98.4; O2SAT 96–98
--- NOTE | 2025-04-22 02:12 | DVH ---
Exam: XY KUB ABDOMEN SINGLE VIEW Indication: Upright, rule out SBO/perforation Comparison: None Technique: 2 radiographic views of the abdomen. Findings: The visualized portions of the lungs are clear. Nonobstructive bowel gas pattern noted. There is no definite evidence for pneumoperitoneum. No abnormal calcifications noted. Atherosclerotic vascular calcifications are noted. Impression: 1. Nonobstructive bowel gas pattern noted.
[2025-04-22 06:31] LABS: Hematocrit 33.8 % (36.0-46.0); Hemoglobin 10.8 g/dL (12.2-16.2); Mean Corpuscular Hemoglobin 27.5 pg (28.0-32.0); Mean Corpuscular Volume 85.9 fL (80.0-100.0); Nucleated Red Blood Cells % 0.5 %
[2025-04-22 06:35] LABS: Alkaline Phosphatase 82 U/L (46-116); Anion Gap 13 (5-15); BUN/Creatinine Ratio 8.4 (10.0-20.0); Blood Urea Nitrogen 10 mg/dL (9-23); Calcium 9.0 mg/dL (8.7-10.4); Carbon Dioxide 22 mmol/L (20-31); Potassium 3.8 mmol/L (3.5-5.1); Total Protein 6.6 g/dL (5.7-8.2)
[2025-04-22 06:36] LABS: Albumin 3.5 g/dL (3.2-4.8)
[2025-04-22 06:39] LABS: Alanine Aminotransferase < 9 U/L (7-40); Bilirubin, Total 0.2 mg/dL (0.2-1.0); Chloride 98 mmol/L (98-107); Glucose 217 mg/dL (74-106); Sodium 133 mmol/L (136-145)
[2025-04-22] MEDS ORDERED: METOCLOPRAMIDE HCL 5MG/ml INJ 2ml VIAL IV SCH (10:30)
[2025-04-22] MEDS: FAMOTIDINE (10MG/ML) 2ML VL IV SCH (12:51)
--- NOTE | 2025-04-22 12:58 | DVHPN2 ---
Subjective Patient doing well, seen at bedside today. Reviewed: Care Plan Changes from previous H/P or p: No Changes General: Per HPI Objective Vitals Vital Signs Date Time Temp Pulse Resp B/P (MAP) Pulse Ox O2 Delivery O2 Flow Rate FiO2 04/22/25 10:12 69 147/82 04/22/25 09:00 96.3 17 98 96.3 04/22/25 07:55 Room Air* 0 21 Intake/Output Intake and Output 04/22/25 07:00 Intake Total 1960 ml Output Total 850 ml Balance 1110 ml Intake Oral 510 ml IV Total 1450 ml Output Urine Total 850 ml Exam GEN: Healthy appearing, well-developed, NAD. HEENT: NC/AT; MMM. CV: RRR, no m/r/g. LUNGS: CTAB, no w/r/c. ABD: Soft, NT/ND, NBS, no masses or organomegaly. EXT: skin Warm, well perfused. no rashes. No clubbing, cyanosis, or edema. NEURO: Ambulating with no limitations. No focal deficits. Medications Current Medications Medications Dose Ordered Sig/Dottie Route Start Time Stop Time Status Last Admin Dose Admin Sodium Chloride 10 ml Q8HR IV 04/19/25 22:00 04/22/25 05:36 10 ML Docusate Sodium 100 mg BIDPRN PRN PO 04/19/25 18:00 Acetaminophen 650 mg Q6HP PRN PO 04/19/25 18:00 Acetaminophen/ Hydrocodone Bitart 1 tab Q4HP PRN PO 04/19/25 18:00 Hydromorphone HCl 0.5 mg Q4HP PRN IV 04/19/25 18:00 04/20/25 18:34 0.5 MG Ondansetron HCl 4 mg Q4HP PRN IV 04/19/25 18:00 04/21/25 15:50 4 MG Diagnostic Test (Pha) 1 strip ACHS 04/19/25 22:00 04/22/25 11:31 1 STRIP Insulin Human Regular ACHS SC 04/19/25 22:00 04/22/25 11:31 3 UNITS Dextrose 50 ml UD PRN IV 04/19/25 18:00 Insulin Glargine 12 units HS SC 04/19/25 22:00 04/21/25 23:01 12 UNITS Insulin Human Lispro 4 units TID SC 04/19/25 22:00 04/22/25 06:09 4 UNITS Heparin Sodium (Porcine) 5,000 units Q12HR SC 04/19/25 22:00 04/22/25 09:16 5,000 UNITS Prednisone 5 mg DAILY PO 04/21/25 10:00 04/22/25 09:12 5 MG Tacrolimus 2 mg BID PO 04/20/25 22:00 04/22/25 09:13 2 MG Mycophenolate Mofetil 500 mg BID PO 04/20/25 22:00 04/22/25 09:13 500 MG Metoprolol Tartrate 25 mg BID PO 04/20/25 22:00 04/22/25 09:12 25 MG Sodium Chloride 1,000 ml @ 75 mls/hr [id number] IV 04/20/25 15:30 04/22/25 07:42 75 MLS/HR Ceftriaxone Sodium 50 ml @ 100 mls/hr DAILY@09 IV 04/21/25 09:00 04/22/25 09:11 100 MLS/HR Metronidazole 100 ml @ 100 mls/hr Q8HR IV 04/20/25 22:00 04/22/25 05:34 100 MLS/HR Famotidine 20 mg Q12HR IV 04/22/25 12:30 04/22/25 12:51 20 MG Laboratory Results Laboratory Tests 04/22/25 05:30 Chemistry Test 04/21/25 17:18 04/22/25 05:30 Calcium Level 9.6 mg/dL (8.7-10.4) 9.0 mg/dL (8.7-10.4) Albumin 3.5 g/dL (3.2-4.8) Total Protein 6.6 g/dL (5.7-8.2) LFT Test 04/22/25 05:30 Alanine Aminotransferase (ALT) < 9 U/L (7-40) Alkaline Phosphatase 82 U/L (46-116) Aspartate Amino Transferase (AST) 12 U/L (13-40) L Total Bilirubin 0.2 mg/dL (0.2-1.0) Labs and/or images reviewed: Labs reviewed by me, Image(s) reviewed by me Assessment/Plan Assessment/Plan 54 y.o female with an extensive PMHx that includes NE, HTN, CHF, DM, and osteomyelitis, presents to the ED via EMS for a chief complaint of generalized weakness associated with nausea and vomiting that started one week ago. Patient has not been able to hold any solids, liquids or medication down due to persistent vomiting. She denies any abdominal pain, chest pain, or shortness of breath. She reports no fever, chills, or diarrhea. EMS noted blood glucose BG of 247. 04/21/2025: I am wondering if this is gastroparesis versus SBO. Elbow get upright KUB. Continue Zofran for now. If no SBO, she had faint/no vital signs today, you may have to try and Reglan. I will check A1c to evaluated this is at range of gastroparesis. Otherwise continue antibiotics. Continue IV fluids hydration. : Patient is feeling mildly better but has significant GERD. We will start Pepcid 20 IV b.i.d., add Carafate 100 b.i.d.. She has hyperdynamic bowel sounds we will get CT abdomen, rule out SBO. IM concern of possible gastroparesis her A1c is elevated if SP ruled out we will start Reglan and continue to follow. For diet we will deescalate to full liquid diet cardiac diabetic. diagnosis: Gastroenteritis Intractable nausea and vomiting due to above Tachycardia Tachypnea Sirs with AOD (laine) Type 2 NSTEMI Diabetes with hyperglycemia LAINE due to VMN, on CKD Thrombocytosis Neutrophilia Anemia normocytic History of NE CHF History osteomyelitis Plan: IV antibiotics Prn pain control Prn antiemetics Slow IV fluids tele full code Plan discussed with: Patient My Orders Orders - LAKSHMI RIGGINS MD Procedure Category Date Status Time Kub Abdomen Single XY 04/21/25 Resulted View 16:17 Ct Ab Pel Wo Con-No CT 04/22/25 Taken Oral Or Iv 10:29 Famotidine Injection PHA 04/22/25 In Process (Pepcid Injection) 12:30 Date of Service: Apr 22, 2025 Billing Provider: LAKSHMI RIGGINS MD Common Visit Codes: [id number] INP/OBS CARE(HIGH) LAKSHMI RIGGINS MD Apr 22, 2025 12:58
--- NOTE | 2025-04-22 14:30 | DVH ---
Exam: CT CT AB PEL WO CON-NO ORAL OR IV History: abd pain unremit Comparison Study: None Technique: Multidetector spiral CT of the abdomen was performed from lung bases to pubic symphysis. I maging was performed without IV contrast. Axial, coronal and sagittal multiplanar reformats were obta ined from the axial data set by the technologist. Radiation Dose : 1. Abdomen/Pelvis: CTDIvol 11.18 mGy, DLP 664.39 mGy*cm. Findings: Evaluation of solid organs is limited due to lack of intravenous contrast use. Lung Bases: Small pericardial effusion. Liver: The liver is normal in size. No focal lesions. Gallbladder and Biliary Tree: Unremarkable Spleen: Unremarkable Pancreas: The pancreas is grossly normal in appearance. Adrenal Glands: Unremarkable Kidneys: Bilateral [place] kidneys are atrophic. Left lower quadrant transplant kidney. Transplant ki dney contains 0.1 cm punctate nonobstructing stone in the lower pole. Bladder: Bladder is decompressed with a Hinton catheter and cannot be adequately assessed. Bowel: The stomach is grossly normal in appearance. Small bowel and colon are normal in caliber and d istribution. The appendix is not visualized; however, no secondary findings of acute appendicitis jarvis ntified. Ascites: Absent Lymphadenopathy: No mesenteric, retroperitoneal or periportal lymphadenopathy. Abdominal Wall and Mesentery: Unremarkable. Vasculature: The visualized abdominal aorta is normal in size and caliber. There is extensive athero sclerotic calcification of the aorta and its branches. Evaluation of abdominal and pelvic vessels is limited due to lack of intravenous contrast. Pelvic Organs: Unremarkable Musculoskeletal: No aggressive focal bony lesions, acute fractures or dislocation. IMPRESSION: Small pericardial effusion. Bilateral [place] kidneys are atrophic. Left lower quadrant transplant kidney. Transplant kidney contains 0.1 cm punctate nonobstructing stone in the lower pole. Bladder is decompressed with a Hinton catheter and cannot be adequately assessed.
--- NOTE | 2025-04-22 17:07 | DVHPN2 ---
Progress Note - Dictate Date Seen: Apr 22, 2025 Medical Necessity Reason Pt with a Central, PICC or Fol: No Subjective Diet has been advanced Hinton cath placed vital signs Vital Sign Date Time Temp Pulse Resp B/P (MAP) Pulse Ox O2 Delivery O2 Flow Rate FiO2 04/22/25 16:54 97.6 78 18 137/79 (98) 98 97.6 04/22/25 07:55 Room Air* 0 21 Total Intake and Output 04/21/25 04/21/25 04/22/25 15:00 23:00 07:00 Intake Total 1250 ml 310 ml 400 ml Output Total 450 ml 400 ml Balance 1250 ml -140 ml 0 ml medications Current Medications Medications Dose Ordered Sig/Dottie Route Start Time Stop Time Status Last Admin Dose Admin Sodium Chloride 10 ml Q8HR IV 04/19/25 22:00 04/22/25 14:06 10 ML Docusate Sodium 100 mg BIDPRN PRN PO 04/19/25 18:00 Acetaminophen 650 mg Q6HP PRN PO 04/19/25 18:00 Acetaminophen/ Hydrocodone Bitart 1 tab Q4HP PRN PO 04/19/25 18:00 Hydromorphone HCl 0.5 mg Q4HP PRN IV 04/19/25 18:00 04/20/25 18:34 0.5 MG Ondansetron HCl 4 mg Q4HP PRN IV 04/19/25 18:00 04/21/25 15:50 4 MG Diagnostic Test (Pha) 1 strip ACHS 04/19/25 22:00 04/22/25 11:31 1 STRIP Insulin Human Regular ACHS SC 04/19/25 22:00 04/22/25 11:31 3 UNITS Dextrose 50 ml UD PRN IV 04/19/25 18:00 Insulin Glargine 12 units HS SC 04/19/25 22:00 04/21/25 23:01 12 UNITS Insulin Human Lispro 4 units TID SC 04/19/25 22:00 04/22/25 14:06 4 UNITS Heparin Sodium (Porcine) 5,000 units Q12HR SC 04/19/25 22:00 04/22/25 09:16 5,000 UNITS Prednisone 5 mg DAILY PO 04/21/25 10:00 04/22/25 09:12 5 MG Tacrolimus 2 mg BID PO 04/20/25 22:00 9/2/25 09:13 2 MG Mycophenolate Mofetil 500 mg BID PO 04/20/25 22:00 04/22/25 09:13 500 MG Metoprolol Tartrate 25 mg BID PO 04/20/25 22:00 04/22/25 09:12 25 MG Sodium Chloride 1,000 ml @ 75 mls/hr [id number] IV 04/20/25 15:30 04/22/25 07:42 75 MLS/HR Ceftriaxone Sodium 50 ml @ 100 mls/hr DAILY@09 IV 04/21/25 09:00 04/22/25 09:11 100 MLS/HR Metronidazole 100 ml @ 100 mls/hr Q8HR IV 04/20/25 22:00 04/22/25 14:06 100 MLS/HR Famotidine 20 mg Q12HR IV 04/22/25 12:30 04/22/25 12:51 20 MG Sucralfate 1 gm BID@0600,2200 GT 04/22/25 22:00 objective Awake alert oriented x3 HEENT: Normocephalic, no JVD Lungs: Bilateral good air entry CVS: S1, S2 regular rate rhythm Abdomen: Soft, bowel sounds present [employer]: No focal deficits Extremities: No edema laboratory and microbiology Laboratory Tests 04/22/25 05:30 Test 04/22/25 05:30 Range/Units Serum Glucose 217 H 74-106 mg/dL Problem List Acute kidney injury superimposed on Chronic kidney disease secondary to volume depletion due to nausea and vomiting History of kidney transplant Diabetes mellitus Hypertension History of coronary artery disease Diastolic heart failure Assessment/Plan GFR with improvement . Continue IVF Continue immunosuppression . Labs in AM Dietary Evaluation Review Recommendations by RD: Dietary education by RD Comments: 1) Add 60g CCHO restriction to cardiac diet 2) Collect HbA1c 3) Refer to outpatient RD/CD[facility] for diabetes education 4) Follow-up with cardiology 5) Continue to monitor I&O, labs, and skin integrity Expected Outcomes/Goals: 1) appetite and labs to improve 2) GI symptoms to resolve 3) f/u in 3-5 days Plan discussed with: Patient KVNG BAEZ MD Apr 22, 2025 17:07
[2025-04-22] MEDS: SUCRALFATE 1 GM/10 ML ORAL SUSP GT SCH (21:57)
[2025-04-23] VITALS (7 sets, daily range): BP systolic 135–148; BP diastolic 81–91; PULSE 66–82; RESP 17–20; TEMP 97.9–98.6; O2SAT 98–100
--- NOTE | 2025-04-23 09:08 | DVHPN2 ---
Subjective Patient doing well, seen at bedside today. Reviewed: Care Plan Changes from previous H/P or p: No Changes General: Per HPI Objective Vitals Vital Signs Date Time Temp Pulse Resp B/P (MAP) Pulse Ox O2 Delivery O2 Flow Rate FiO2 04/23/25 05:00 98.4 68 17 137/88 (104) 99 98.4 04/22/25 20:00 Room Air* 0 21 Intake/Output Intake and Output 04/23/25 07:00 Intake Total 1780 ml Output Total 1200 ml Balance 580 ml Intake Oral 1530 ml IV Total 250 ml Output Urine Total 1200 ml # Bowel Movements 1 Exam GEN: Healthy appearing, well-developed, NAD. HEENT: NC/AT; MMM. CV: RRR, no m/r/g. LUNGS: CTAB, no w/r/c. ABD: Soft, NT/ND, NBS, no masses or organomegaly. EXT: skin Warm, well perfused. no rashes. No clubbing, cyanosis, or edema. NEURO: Ambulating with no limitations. No focal deficits. Medications Current Medications Medications Dose Ordered Sig/Dottie Route Start Time Stop Time Status Last Admin Dose Admin Sodium Chloride 10 ml Q8HR IV 04/19/25 22:00 04/23/25 05:50 10 ML Docusate Sodium 100 mg BIDPRN PRN PO 04/19/25 18:00 Acetaminophen 650 mg Q6HP PRN PO 04/19/25 18:00 Acetaminophen/ Hydrocodone Bitart 1 tab Q4HP PRN PO 04/19/25 18:00 Hydromorphone HCl 0.5 mg Q4HP PRN IV 04/19/25 18:00 04/20/25 18:34 0.5 MG Ondansetron HCl 4 mg Q4HP PRN IV 04/19/25 18:00 04/21/25 15:50 4 MG Diagnostic Test (Pha) 1 strip ACHS 04/19/25 22:00 04/23/25 06:08 1 STRIP Insulin Human Regular ACHS SC 04/19/25 22:00 04/22/25 22:19 8 UNITS Dextrose 50 ml UD PRN IV 04/19/25 18:00 Insulin Glargine 12 units HS SC 04/19/25 22:00 04/22/25 22:21 12 UNITS Insulin Human Lispro 4 units TID SC 04/19/25 22:00 04/23/25 05:51 4 UNITS Heparin Sodium (Porcine) 5,000 units Q12HR SC 04/19/25 22:00 04/22/25 22:15 5,000 UNITS Prednisone 5 mg DAILY PO 04/21/25 10:00 04/22/25 09:12 5 MG Tacrolimus 2 mg BID PO 04/20/25 22:00 04/22/25 22:02 2 MG Mycophenolate Mofetil 500 mg BID PO 04/20/25 22:00 04/22/25 22:00 500 MG Metoprolol Tartrate 25 mg BID PO 04/20/25 22:00 04/22/25 22:02 25 MG Sodium Chloride 1,000 ml @ 75 mls/hr [id number] IV 04/20/25 15:30 04/22/25 07:42 75 MLS/HR Ceftriaxone Sodium 50 ml @ 100 mls/hr DAILY@09 IV 04/21/25 09:00 04/22/25 09:11 100 MLS/HR Metronidazole 100 ml @ 100 mls/hr Q8HR IV 04/20/25 22:00 04/22/25 21:57 100 MLS/HR Famotidine 20 mg Q12HR IV 04/22/25 12:30 04/22/25 21:59 20 MG Sucralfate 1 gm BID@0600,2200 GT 04/22/25 22:00 04/22/25 21:57 1 GM Metoclopramide HCl 10 mg ONCE STAT IV 04/23/25 08:44 04/23/25 08:45 UNV Metoclopramide HCl 10 mg Q8HR PO 04/23/25 14:00 UNV Laboratory Results Laboratory Tests 04/22/25 05:30 Labs and/or images reviewed: Labs reviewed by me, Image(s) reviewed by me Assessment/Plan Assessment/Plan 54 y.o female with an extensive PMHx that includes NE, HTN, CHF, DM, and osteomyelitis, presents to the ED via EMS for a chief complaint of generalized weakness associated with nausea and vomiting that started one week ago. Patient has not been able to hold any solids, liquids or medication down due to persistent vomiting. She denies any abdominal pain, chest pain, or shortness of breath. She reports no fever, chills, or diarrhea. EMS noted blood glucose BG of 247. 04/21/2025: I am wondering if this is gastroparesis versus SBO. Elbow get upright KUB. Continue Zofran for now. If no SBO, she had faint/no vital signs today, you may have to try and Reglan. I will check A1c to evaluated this is at range of gastroparesis. Otherwise continue antibiotics. Continue IV fluids hydration. 04/22: Patient is feeling mildly better but has significant GERD. We will start Pepcid 20 IV b.i.d., add Carafate 100 b.i.d.. She has hyperdynamic bowel sounds we will get CT abdomen, rule out SBO. IM concern of possible gastroparesis her A1c is elevated if SP ruled out we will start Reglan and continue to follow. For diet we will deescalate to full liquid diet cardiac diabetic. 04/23: improving nausea. Today we will start trial of Reglan. CT abdomen yesterday without any acute concerns or any SBO. possible dc today. Remove Hinton today diagnosis: Gastroenteritis Intractable nausea and vomiting due to above Tachycardia Tachypnea Sirs with AOD (laine) Type 2 NSTEMI Diabetes with hyperglycemia LAINE due to VMN, on CKD Thrombocytosis Neutrophilia Anemia normocytic History of NE CHF History osteomyelitis Plan: IV antibiotics Prn pain control Reglan Prn antiemetics Slow IV fluids tele full code Plan discussed with: Patient My Orders Orders - LAKSHMI RIGGINS MD Procedure Category Date Status Time Ct Ab Pel Wo Con-No CT 04/22/25 Resulted Oral Or Iv 10:29 Famotidine Injection PHA 04/22/25 In Process (Pepcid Injection) 12:30 Sucralfate Susp PHA 04/22/25 In Process (Carafate Susp) 22:00 Renal DIET 04/22/25 Transmitted Standard(2gna,3gk,Lopho) Dinner Metoclopramide PHA 04/23/25 Logged Injection (Reglan 08:44 Metoclopramide Tablet PHA 04/23/25 Logged (Reglan Tablet) 14:00 Date of Service: Apr 23, 2025 Billing Provider: LAKSHMI RIGGINS MD Common Visit Codes: NOT BILLABLE LAKSHMI RIGGINS MD Apr 23, 2025 09:08
--- NOTE | 2025-04-23 09:10 | DVHDS2 ---
Discharge Summary Date of Admission Apr 19, 2025 at 17:46 Date of Discharge: Apr 23, 2025 Labs/Diagnostic Data: Laboratory Results Test 04/23/25 05:26 04/22/25 05:30 04/21/25 07:00 04/20/25 11:45 POC Glucose 95 mg/dl (70-106) White Blood Count 6.7 10^3/uL (4.4-10.8) Red Blood Count 3.93 10^6/uL (4.0-5.20) Hemoglobin 10.8 g/dL (12.2-16.2) Hematocrit 33.8 % (36.0-46.0) Mean Corpuscular Volume 85.9 fL (80.0-100.0) Mean Corpuscular Hemoglobin 27.5 pg (28.0-32.0) Mean Corpuscular Hemoglobin Concent 32.0 g/dL (32.0-36.0) Red Cell Distribution Width 18.7 % (11.8-14.3) Platelet Count 349 10^3/uL (140-450) Mean Platelet Volume 8.5 fL (6.9-10.8) Neutrophils (%) (Auto) 73.0 % (37.0-80.0) Lymphocytes (%) (Auto) 16.6 % (10.0-50.0) Monocytes (%) (Auto) 7.8 % (0.0-12.0) Eosinophils (%) (Auto) 1.1 % (0.0-7.0) Basophils (%) (Auto) 1.5 % (0.0-2.0) Neutrophils # (Auto) 4.9 10 ^3/uL (1.6-8.6) Lymphocytes # (Auto) 1.1 10 ^3/uL (0.4-5.4) Monocytes # (Auto) 0.5 10 ^3/uL (0-1.3) Eosinophils # (Auto) 0.1 10 ^3/uL (0-0.8) Basophils # (Auto) 0.1 10 ^3/uL (0-0.2) Nucleated Red Blood Cells 0.5 % Platelet Estimate Adequate Clumped Platelets None Sodium Level 133 mmol/L (136-145) Potassium Level 3.8 mmol/L (3.5-5.1) Chloride Level 98 mmol/L (98-107) Carbon Dioxide Level 22 mmol/L (20-31) Anion Gap 13 (5-15) Blood Urea Nitrogen 10 mg/dL (9-23) Creatinine 1.19 mg/dL (0.550-1.02) Glomerular Filtration Rate Calc 55 mL/min (>90) BUN/Creatinine Ratio 8.4 (10.0-20.0) Serum Glucose 217 mg/dL (74-106) Calcium Level 9.0 mg/dL (8.7-10.4) Total Bilirubin 0.2 mg/dL (0.2-1.0) Aspartate Amino Transferase (AST) 12 U/L (13-40) Alanine Aminotransferase (ALT) < 9 U/L (7-40) Alkaline Phosphatase 82 U/L (46-116) Total Protein 6.6 g/dL (5.7-8.2) Albumin 3.5 g/dL (3.2-4.8) Hemoglobin A1c 9.3 % A1C (<5.7) Hepatitis B Surface Antigen Negative (Negative) Hepatitis C Antibody Negative (Negative) Test 04/19/25 15:41 04/19/25 14:22 Troponin I High Sensitivity 49 ng/L (</=34) Lipase 23 U/L (12-53) Other Laboratory Tests 04/22/25 05:30 Brief Hx & Hospital Course: 54 y.o female with an extensive PMHx that includes NV, HTN, CHF, DM, and osteomyelitis, presents to the ED via EMS for a chief complaint of generalized weakness associated with nausea and vomiting that started one week ago. Patient has not been able to hold any solids, liquids or medication down due to persistent vomiting. She denies any abdominal pain, chest pain, or shortness of breath. She reports no fever, chills, or diarrhea. EMS noted blood glucose BG of 247. 04/21/2025: I am wondering if this is gastroparesis versus SBO. Elbow get upright KUB. Continue Zofran for now. If no SBO, she had faint/no vital signs today, you may have to try and Reglan. I will check A1c to evaluated this is at range of gastroparesis. Otherwise continue antibiotics. Continue IV fluids hydration. 04/22: Patient is feeling mildly better but has significant GERD. We will start Pepcid 20 IV b.i.d., add Carafate 100 b.i.d.. She has hyperdynamic bowel sounds we will get CT abdomen, rule out SBO. IM concern of possible gastroparesis her A1c is elevated if SP ruled out we will start Reglan and continue to follow. For diet we will deescalate to full liquid diet cardiac diabetic. 04/23: improving nausea. Today we will start trial of Reglan. CT abdomen yesterday without any acute concerns or any SBO. possible dc today. Remove Hinton today diagnosis: sepsis due to below Gastroenteritis , infectious etiology likely Gastroparesis, possible Intractable nausea and vomiting due to above , resolved Tachycardia, resolved Tachypnea , resolved Type 2 NSTEMI Diabetes with hyperglycemia LAINE due to VMN, on CKD Thrombocytosis Neutrophilia Anemia normocytic History of NV CHF History osteomyelitis plan: -Take Augmentin 875 mg twice daily for 3 days -Take Reglan 5 mg up to 3 times daily as needed for nausea, to get least once daily regularly in the mornings for next 5 days - recommend thick puree foods Diet for next 5 days . Cardiac/ diabetic diet -Follow up with PCP -continue other home medications not mentioned above Condition at Discharge: Fair Final Diagnosis/Problems List sepsis due to below Gastroenteritis , infectious etiology likely Gastroparesis, possible Intractable nausea and vomiting due to above , resolved Tachycardia, resolved Tachypnea , resolved Type 2 NSTEMI Diabetes with hyperglycemia LAINE due to VMN, on CKD Thrombocytosis Neutrophilia Anemia normocytic History of NV CHF History osteomyelitis Discharge Disposition: Home Discharge Instruct/Medications Scheduled Amoxicillin & Pot Clavulanate (Augmentin Tablet), 875 MG PO BID Azithromycin (Zithromax), 1 PACK PO ONCE B-Complex W/ C & Folic Acid (Abigail-Ubaldo), 1 MG OR DAILY, (Reported) Calcitriol (Calcitriol), 0.5 MG PO 1XW, (Reported) Cephalexin Monohydrate (Cephalexin), 500 MG PO Q6HR Ciprofloxacin Hcl (Ciprofloxacin Hcl), 1 TAB PO BID Ferrous Sulfate (Ferrous Sulfate), 325 MG PO DAILY, (Reported) Furosemide (Furosemide), 1 TAB PO BID, (Reported) Guaifenesin-Codeine (Robitussin/Codeine), 5 ML PO Q6HR Hydrocodone-Acetaminophen (Hydrocodone/Acetaminophen), 1 TAB PO BID, (Reported) Insulin Glargine (Lantus), 40 UNITS SC HS, (Reported) Insulin Lispro (Human) (Humalog), Unknown Dose SC AC, (Reported) Lisinopril (Lisinopril), 5 MG PO DAILY, (Reported) Lovastatin (Lovastatin), 20 MG PO DAILY, (Reported) Omeprazole (Prilosec), 40 MG OR DAILY, (Reported) Pregabalin (Lyrica), 75 MG PO DAILY, (Reported) Sodium Hydrogenocarbonate (Sodium Bicarbonate), 650 MG PO TID, (Reported) Sulfamethoxazole W/Trimethopri (Trimethoprim/Sulfamethoxa), 1 TAB PO BID Scheduled PRN Metoclopramide Hcl (Reglan), 5 MG PO TIDP PRN Discharge Statement: "Patient was advised to return to the ER or call 911 if any headaches, dizziness, shortness of breath, chest pain, abdominal pain, bleeding, fevers, or worsening of medical condition. Patient was counseled about treatment plan, medications, possible side effects, patientverbalized understanding. All questions were answered to the best of my ability. This discharge took greater then 30 minutes in planning, reviewing documentation, counseling the patient, and discussing with other team members." ASSESSMENT ASSESSMENT Assessment Date of Service: Apr 23, 2025 Billing Provider: LAKSHMI RIGGINS MD Common Visit Codes: [id number] INP/OBS CARE(HIGH) LAKSHMI RIGGINS MD Apr 23, 2025 09:10
[2025-04-23] MEDS: METOCLOPRAMIDE HCL 5MG/ml INJ 2ml VIAL IV STA (09:42)
--- NOTE | 2025-04-23 14:14 | ECG ---
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
[2025-04-23] MEDS ORDERED: AUG875T PO (14:38)
[2025-04-23] MEDS ORDERED: METO5TAB67 PO (14:38)
--- NOTE | 2025-04-23 15:29 | DVHPN2 ---
Progress Note - Dictate Date Seen: Apr 23, 2025 Medical Necessity Reason Pt with a Central, PICC or Fol: No Subjective no acute issues vital signs Vital Sign Date Time Temp Pulse Resp B/P (MAP) Pulse Ox O2 Delivery O2 Flow Rate FiO2 04/23/25 13:00 98.6 66 20 148/87 (107) 98 98.6 04/23/25 08:05 Room Air* 0 21 Total Intake and Output 04/22/25 04/22/25 04/23/25 15:00 23:00 07:00 Intake Total 50 ml 1130 ml 600 ml Output Total 750 ml 450 ml Balance 50 ml 380 ml 150 ml medications Current Medications Medications Dose Ordered Sig/Dottie Route Start Time Stop Time Status Last Admin Dose Admin Sodium Chloride 10 ml Q8HR IV 04/19/25 22:00 04/23/25 05:50 10 ML Docusate Sodium 100 mg BIDPRN PRN PO 04/19/25 18:00 Acetaminophen 650 mg Q6HP PRN PO 04/19/25 18:00 Acetaminophen/ Hydrocodone Bitart 1 tab Q4HP PRN PO 04/19/25 18:00 Hydromorphone HCl 0.5 mg Q4HP PRN IV 04/19/25 18:00 04/20/25 18:34 0.5 MG Ondansetron HCl 4 mg Q4HP PRN IV 04/19/25 18:00 04/21/25 15:50 4 MG Diagnostic Test (Pha) 1 strip ACHS 04/19/25 22:00 04/23/25 11:30 1 STRIP Insulin Human Regular ACHS SC 04/19/25 22:00 04/23/25 11:32 3 UNITS Dextrose 50 ml UD PRN IV 04/19/25 18:00 Insulin Glargine 12 units HS SC 04/19/25 22:00 04/22/25 22:21 12 UNITS Insulin Human Lispro 4 units TID SC 04/19/25 22:00 04/23/25 05:51 4 UNITS Heparin Sodium (Porcine) 5,000 units Q12HR SC 04/19/25 22:00 04/23/25 09:50 5,000 UNITS Prednisone 5 mg DAILY PO 04/21/25 10:00 04/23/25 09:43 5 MG Tacrolimus 2 mg BID PO 04/20/25 22:00 04/23/25 09:42 2 MG Mycophenolate Mofetil 500 mg BID PO 04/20/25 22:00 04/23/25 09:43 500 MG Metoprolol Tartrate 25 mg BID PO 04/20/25 22:00 04/23/25 09:43 25 MG Ceftriaxone Sodium 50 ml @ 100 mls/hr DAILY@09 IV 04/21/25 09:00 04/22/25 09:11 100 MLS/HR Metronidazole 100 ml @ 100 mls/hr Q8HR IV 04/20/25 22:00 04/22/25 21:57 100 MLS/HR Famotidine 20 mg Q12HR IV 04/22/25 12:30 04/23/25 09:44 20 MG Sucralfate 1 gm BID@0600,2200 GT 04/22/25 22:00 04/22/25 21:57 1 GM Metoclopramide HCl 10 mg Q8HR PO 04/23/25 14:00 objective Awake alert oriented x3 HEENT: Normocephalic, no JVD Lungs: Bilateral good air entry CVS: S1, S2 regular rate rhythm Abdomen: Soft, bowel sounds present UNCRATER: No focal deficits Extremities: No edema laboratory and microbiology Laboratory Tests 04/22/25 05:30 Test 04/22/25 05:30 Range/Units Serum Glucose 217 H 74-106 mg/dL Problem List Acute kidney injury superimposed on Chronic kidney disease secondary to volume depletion due to nausea and vomiting History of kidney transplant Diabetes mellitus Hypertension History of coronary artery disease Diastolic heart failure Assessment/Plan LAINE improving . cleared from renal standpoint for dc f/up with Dr Ludwig next week Dietary Evaluation Review Recommendations by RD: Dietary education by RD Comments: 1) Add 60g CCHO restriction to cardiac diet 2) Collect HbA1c 3) Refer to outpatient RD/CDCES for diabetes education 4) Follow-up with cardiology 5) Continue to monitor I&O, labs, and skin integrity Expected Outcomes/Goals: 1) appetite and labs to improve 2) GI symptoms to resolve 3) f/u in 3-5 days Plan discussed with: Patient KVNG BAEZ MD Apr 23, 2025 15:29
[2025-04-23] MEDS: METOCLOPRAMIDE HCL 10 MG TAB PO SCH (16:50)
--- NOTE | 2025-04-30 16:28 | ECG ---
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
== END 2025-04-23 17:20 | disposition home or self-care (01) | DRG 871 ==
LOC: EDBD 12:59 → ER 12:59 → EDUNIT# 17:46 → OVERFLOW 17:46 → TELE-WESTW 23:52
PROVIDERS: ADMIT Student in an Organized Health Care Education/Training Program; ATTEND Student in an Organized Health Care Education/Training Program
DX: A41.9 Sepsis, unspecified organism (principal); I21.A1 Myocardial infarction type 2; N17.0 Acute kidney failure with tubular necrosis; I13.0 Hypertensive heart and chronic kidney disease with heart failure and stage 1 through stage 4 chronic kidney disease, or unspecified chronic kidney disease; A09 Infectious gastroenteritis and colitis, unspecified; Z94.0 Kidney transplant status; I50.30 Unspecified diastolic (congestive) heart failure; D75.839 Thrombocytosis, unspecified; E11.22 Type 2 diabetes mellitus with diabetic chronic kidney disease; E11.65 Type 2 diabetes mellitus with hyperglycemia; E86.9 Volume depletion, unspecified; I25.10 Atherosclerotic heart disease of native coronary artery without angina pectoris; N18.9 Chronic kidney disease, unspecified; D64.9 Anemia, unspecified; K21.9 Gastro-esophageal reflux disease without esophagitis; E11.43 Type 2 diabetes mellitus with diabetic autonomic (poly)neuropathy; K31.84 Gastroparesis; Z82.3 Family history of stroke; Z82.0 Family history of epilepsy and other diseases of the nervous system; Z82.49 Family history of ischemic heart disease and other diseases of the circulatory system; Z79.60 Long term (current) use of unspecified immunomodulators and immunosuppressants; Z79.4 Long term (current) use of insulin; Z79.899 Other long term (current) drug therapy
CPT/HCPCS: 36415; 74018; 74176; 76776; 80048; 80053; 80197; 82962; 83036; 83690; 84484; 85025; 86803; 87340; 93005; 93306; 96360; 96372; G0378; J1815; J2405; J3490; J7507; J7517

== ENCOUNTER 2025-05-27 18:33 | Inpatient (IN) | payer OTHER ==
[~2025-05-27] VITALS: Ht 167.6 cm; Wt 68.0 kg
[~2025-05-27 18:33] MED LIST changes: +AUG875T PO; -CEPH500C PO; -CIPR500T4 PO; +METO5TAB67 PO; -SULF800T23 PO
--- NOTE | 2025-05-27 18:49 | ED.PDOC ---
GI ASSESSMENT HPI Comments 54 y/o F, BIBA, with PMHx of CHF, HTN, and TN presents to the ED for CC of nausea/vomiting. EMS reports, patient is coming from home where she c/o nausea and vomiting x2days. Patient relays, that she has not had a bowel movement in approximately x2days. Per EMS, patient is febrile with an oral temperature of 101.0F. Patient denies abdominal pain, hematemesis, sweats, chills, palpitations, faintness, or weakness. No other symptoms or modifying factors present at this time. Time Seen by MD: 18:40 Primary Care Provider: GABRIELLE Reviewed Notes: Nurses Notes, Supervisor Rod Placing Notes, Medications, Allergies Allergies: Coded Allergies: NO KNOWN ALLERGIES (Unverified , 10/21/13) Home Meds Active Scripts Amoxicillin & Pot Clavulanate (AUGMENTIN TABLET) 875 Mg Tb, 875 MG PO BID for 3 Days, #6 TAB 0 Refills Prov:LAKSHMI RIGGINS MD 04/23/25 Metoclopramide Hcl (Reglan) 5 Mg Tab, 5 MG PO TIDP PRN for 7 Days, #30 TAB 0 Refills Prov:LAKSHMI RIGGINS MD 04/23/25 Guaifenesin-Codeine (Robitussin/Codeine) 10 Ml So, 5 ML PO Q6HR, #120 ML Prov:ZARINA POWELL MD 12/08/21 Azithromycin (Zithromax) 1 Gm Pow, 1 PACK PO ONCE, #1 PACK Prov:ZARINA POWELL MD 12/08/21 Reported Medications Furosemide (Furosemide) 80 Mg Tab, 1 TAB PO BID, #180 TAB 3 Refills 04/04/14 Pregabalin (Lyrica) 75 Mg Cap, 75 MG PO DAILY, CAP 04/04/14 Insulin Glargine (Lantus) 100 Units/Ml Vial, 40 UNITS SC HS, INJ 10/22/13 Insulin Lispro (Human) (Humalog) 100 Mg/Ml Inj, SC AC, INJ 10/22/13 Hydrocodone-Acetaminophen (Hydrocodone/Acetaminophen) 1 Tab Tab, 1 TAB PO BID, TAB 10/22/13 B-Complex W/ C & Folic Acid (Abigail-Ubaldo) Tab, 1 MG OR DAILY, TAB 10/22/13 Lovastatin (Lovastatin) 20 Mg Tab, 20 MG PO DAILY, TAB 10/22/13 Lisinopril (Lisinopril) 5 Mg Tab, 5 MG PO DAILY, TAB 10/22/13 Calcitriol (Calcitriol) 0.5 Mcg Cap, 0.5 MG PO 1XW, CAP 10/22/13 Sodium Hydrogenocarbonate (SODIUM BICARBONATE) 650 Mg Tb, 650 MG PO TID 10/22/13 Ferrous Sulfate (FERROUS SULFATE) 325 Mg Tb, 325 MG PO DAILY 10/22/13 Omeprazole (PRILOSEC) 20 Mg Cap, 40 MG OR DAILY, #1 CAP 10/21/13 Information Source: Patient, Emergency Med Personnel Mode of Arrival: EMS Timing: Days Duration: Since onset Prehospital treatment: None Vomitus: Watery Stool: Impaction Severity: Moderate Recent: None Recent Hx of: None Pain Location: None Modifying Factors: Nothing Associated sign and symptoms: Nausea, Vomiting Past Medical History PAST MEDICAL HISTORY: CHF, DM, HTN, TN Surgical History: , Hysterectomy VIDEO PRODUCTION ASSISTANT History: No Pertinent VIDEO PRODUCTION ASSISTANT History Family History Family History: Family hx of DM, Family hx of Cancer Social History Smoker: Non-Smoker Alcohol: Denies ETOH Use Drugs: Denies Drug Use Lives In: Home Constitutional: denies: chills, diaphoresis, fatigue, fever, malaise, sweats, weakness, others EENTM: denies: blurred vision, double vision, ear bleeding, ear discharge, ear drainage, ear pain, ear ringing, eye pain, eye redness, hearing loss, mouth pain, mouth swelling, nasal discharge, nose bleeding, nose congestion, nose pain, photophobia, tearing, throat pain, throat swelling, voice changes, others Respiratory: denies: cough, hemoptysis, orthopnea, SOB at rest, shortness of breath, SOB with excertion, stridor, wheezing, others Cardiovascular: denies: chest pain, dizzy spells, diaphoresis, Dyspnea on exertion, edema, irregular heart beat, left arm pain, lightheadedness, palpitations, PND, syncope, others Gastrointestinal: reports: nausea, vomiting; denies: abdomen distended, abdominal pain, blood streaked bowels, constipated, diarrhea, dysphagia, difficulty swallowing, hematemesis, melena, poor appetite, poor fluid intake, rectal bleeding, rectal pain, others Genitourinary: denies: abnormal vagina bleeding, burning, dyspareunia, dysuria, flank pain, frequency, hematuria, incontinence, pain, , vagina discharge, urgency, others Neurological: denies: dizziness, fainting, headache, left sided numbness, left sided weakness, numbness, paresthesia, pre-existing deficit, right sided numbness, right sided weakness, seizure, speech problems, tingling, tremors, weakness, others Musculoskeletal: denies: back pain, gout, joint pain, joint swelling, muscle pain, muscle stiffness, neck pain, others Integumetry: denies: bruises, change in color, change in hair/nails, dryness, laceration, lesions, lumps, rash, wounds, others Allergic/Immunocompromised: denies: Difficulty Healing, Frequent Infections, Hives, Itching, others Hematologic/Lymphatic: denies: anemia, blood clots, easy bleeding, easy bruising, swollen glands, others Endocrine: denies: excessive hunger, excessive sweating, excessive thirst, excessive urination, flushing, intolerance to cold, intolerance to heat, unexplained weight gain, unexplained weight loss, others Psychiatric: denies: anxiety, bipolar disorder, depression, hopeless, panic disorder, schizophrenia, sleepless, suicidal, others All Other Systems: Reviewed and Negative Physical Exam General Appearance: No Apparent Distress, Normal HEENT: Normal ENT Inspection, Pharynx Normal Neck: Full Range of Motion, Non-Tender, Normal, Normal Inspection Respiratory: Chest Non-Tender, Lungs Clear, No Accessory Muscle Use, No Respiratory Distress, Normal Breath Sounds Cardiovascular: No Edema, No Murmur, No Gallop, Normal Peripheral Pulses, Regular Rate/Rhythm Breast Exam: Deferred Gastrointestinal: No Organomegaly, Non Tender, No Pulsatile Mass, Normal Bowel Sounds, Soft Genitalia: Deferred Pelvic: Deferred Rectal: Deferred Extremities: No calf tenderness, Normal capillary refill, Normal inspection, Normal range of motion, Non-tender, No pedal edema Musculoskeletal : Apperance: Normal Neurologic: Alert, financial supervisor II-XII nml as Tested, No Motor Deficits, Normal Affect, Normal Mood, No Sensory Deficits Cerebellar Function: Normal Reflexes: Normal Skin: Dry, Normal Color, Warm Lymphatic: No Adenopathy Was a procedure done? Was a procedure done?: No GI differential Dx Differential Diagnosis: Cholangitis, Gastritis/PUD, Gastroenteritis, Bacterial, Viral X-Ray, Labs, Meds, VS Vital Signs Date Time Temp Pulse Resp B/P (MAP) Pulse Ox O2 Delivery O2 Flow Rate FiO2 05/28/25 00:00 98.8 102 18 143/72 (95) 96 98.8 05/27/25 22:00 99.0 104 16 154/78 (103) 95 99.0 05/27/25 19:45 97.7 104 16 132/76 (94) 96 97.7 05/27/25 19:45 Room Air* 0 21 05/27/25 18:36 101.0 108 17 118/72 96 101.0 Lab Test 05/27/25 20:35 05/27/25 20:20 05/27/25 18:56 Range/Units Lactic Acid Level 1.9 3.1 *H 0.4-2.0 mmol/L POC Glucose 479 *H 70-106 mg/dl White Blood Count 10.3 4.4-10.8 10^3/uL Red Blood Count 4.01 4.0-5.20 10^6/uL Hemoglobin 11.1 L 12.2-16.2 g/dL Hematocrit 34.8 L 36.0-46.0 % Mean Corpuscular Volume 86.8 80.0-100.0 fL Mean Corpuscular Hemoglobin 27.7 L 28.0-32.0 pg Mean Corpuscular Hemoglobin Concent 31.9 L 32.0-36.0 g/dL Red Cell Distribution Width 17.6 H 11.8-14.3 % Platelet Count 364 140-450 10^3/uL Mean Platelet Volume 8.6 6.9-10.8 fL Neutrophils (%) (Auto) 87.3 H 37.0-80.0 % Lymphocytes (%) (Auto) 5.4 L 10.0-50.0 % Monocytes (%) (Auto) 6.8 0.0-12.0 % Eosinophils (%) (Auto) 0.1 0.0-7.0 % Basophils (%) (Auto) 0.4 0.0-2.0 % Neutrophils # (Auto) 9.0 H 1.6-8.6 10 ^3/uL Lymphocytes # (Auto) 0.6 0.4-5.4 10 ^3/uL Monocytes # (Auto) 0.7 0-1.3 10 ^3/uL Eosinophils # (Auto) 0 0-0.8 10 ^3/uL Basophils # (Auto) 0 0-0.2 10 ^3/uL Nucleated Red Blood Cells 0.0 % Sodium Level 128 L 136-145 mmol/L Potassium Level 4.3 3.5-5.1 mmol/L Chloride Level 88 L 98-107 mmol/L Carbon Dioxide Level 23 20-31 mmol/L Anion Gap 17 H 5-15 Blood Urea Nitrogen 22 9-23 mg/dL Creatinine 1.44 H 0.550-1.02 mg/dL Glomerular Filtration Rate Calc 43 >90 mL/min BUN/Creatinine Ratio 15.3 10.0-20.0 Serum Glucose 530 *H 74-106 mg/dL Calcium Level 9.8 8.7-10.4 mg/dL Total Bilirubin 0.5 0.2-1.0 mg/dL Aspartate Amino Transferase (AST) < 8 L 13-40 U/L Alanine Aminotransferase (ALT) < 9 7-40 U/L Alkaline Phosphatase 115 46-116 U/L Troponin I High Sensitivity 25 </=34 ng/L Total Protein 7.0 5.7-8.2 g/dL Albumin 3.7 3.2-4.8 g/dL Lipase 34 12-53 U/L Current Medications Medications (Trade) Dose Ordered Sig/Dottie Route Start Time Stop Time Status Last Admin Sodium Chloride 1,800 ml @ 1,800 mls/hr ONCE ONCE IV 05/27/25 20:00 05/27/25 20:59 DC 05/27/25 20:12 Insulin Human Regular (InsuLIN R) 10 units ONCE ONCE IV 05/27/25 20:00 05/27/25 20:01 DC 05/27/25 20:22 Piperacillin Sod/ Tazobactam Sod 100 ml @ 100 mls/hr ONCE ONCE IV 05/27/25 20:00 05/27/25 20:59 DC 05/27/25 21:00 Ondansetron HCl (Zofran) 4 mg ONCE ONCE IV 05/27/25 20:30 05/27/25 20:31 DC 05/27/25 20:41 Prochlorperazine Edisylate (Compazine Inj) 10 mg ONCE ONCE IV 05/27/25 22:45 05/27/25 22:46 DC 05/27/25 22:50 X-Ray, Labs, Meds, VS Comment Patient had elevated blood sugar anion gap 17 and elevated lactic acid Concerns of possible urinary tract infection Patient is started on Zosyn Patient was ordered vancomycin but patient refused Patient will be admitted for hyperglycemia and DKA Blood pressure well maintained but patient is tachycardic Time of 1ST Reevaluation: 19:10 Reevaluation 1ST: Unchanged Patient Education/Counseling: Diagnosis, Treatment, Need For Follow Up Family Education/Counseling: No Family Present SEPSIS Sepsis Screen Physician Orders Clinical Associate (05/27/25 ) Urinalysis (05/27/25 18:42) Electrocardigram (05/27/25 18:42) Blood Culture (05/27/25 19:57) Vital Signs Date Time Temp Pulse Resp B/P (MAP) Pulse Ox O2 Delivery O2 Flow Rate FiO2 05/28/25 00:00 98.8 102 18 143/72 (95) 96 98.8 05/27/25 22:00 99.0 104 16 154/78 (103) 95 99.0 05/27/25 19:45 97.7 104 16 132/76 (94) 96 97.7 05/27/25 19:45 Room Air* 0 21 05/27/25 18:36 101.0 108 17 118/72 96 101.0 Laboratory Tests Test 05/27/25 18:56 05/27/25 20:35 Lactic Acid Level 3.1 mmol/L (0.4-2.0) *H 1.9 mmol/L (0.4-2.0) White Blood Count 10.3 10^3/uL (4.4-10.8) Medications Medications Dose Ordered Sig/Dottie Route Start Time Stop Time Status Last Admin Dose Admin Insulin Human Regular 10 units ONCE ONCE IV 05/27/25 20:00 05/27/25 20:01 DC 05/27/25 20:22 Ondansetron HCl 4 mg ONCE ONCE IV 05/27/25 20:30 05/27/25 20:31 DC 05/27/25 20:41 Piperacillin Sod/ Tazobactam Sod 100 ml @ 100 mls/hr ONCE ONCE IV 05/27/25 20:00 05/27/25 20:59 DC 05/27/25 21:00 Prochlorperazine Edisylate 10 mg ONCE ONCE IV 05/27/25 22:45 05/27/25 22:46 DC 05/27/25 22:50 Sodium Chloride 1,800 ml @ 1,800 mls/hr ONCE ONCE IV 05/27/25 20:00 05/27/25 20:59 DC 05/27/25 20:12 Departure 1 Departure Time of Disposition: 00:47 Impression: Primary Impression: ESRD (end stage renal disease) Additional Impressions: Generalized weakness Hyperglycemia Hypertension Electrolyte imbalance Intractable vomiting Disposition: ADMITTED INPATIENT Condition: Guarded Critical Care Note Critical Care Time?: No Stability Stability form required: No Heart Score Heart Score: Heart Score Response (Comments) Value History N/A 0 EKG N/A 0 Age N/A 0 Risk Factors N/A 0 Troponin N/A 0 Total 0 I personally scribed for VIOLETA VELAZCOP ([email or web address]) on 05/27/25 at 18:49. Electronically submitted by Sarai Kasper ([email or web address]). I personally scribed for VIOLETA VELAZCOP ([email or web address]) on 05/27/25 at 19:11. Electronically submitted by Sarai Kasper ([email or web address]). VIOLETA VELAZCO May 27, 2025 18:49
[2025-05-27 19:16] LABS: Hematocrit 34.8 % (36.0-46.0); Hemoglobin 11.1 g/dL (12.2-16.2); Mean Corpuscular Hemoglobin 27.7 pg (28.0-32.0); Mean Corpuscular Volume 86.8 fL (80.0-100.0); Nucleated Red Blood Cells % 0.0 %
[2025-05-27 19:35] LABS: Albumin 3.7 g/dL (3.2-4.8); Alkaline Phosphatase 115 U/L (46-116); Anion Gap 17 (5-15); BUN/Creatinine Ratio 15.3 (10.0-20.0); Bilirubin, Total 0.5 mg/dL (0.2-1.0); Blood Urea Nitrogen 22 mg/dL (9-23); Calcium 9.8 mg/dL (8.7-10.4); Carbon Dioxide 23 mmol/L (20-31); Lipase 34 U/L (12-53); Potassium 4.3 mmol/L (3.5-5.1); Total Protein 7.0 g/dL (5.7-8.2)
[2025-05-27 19:46] LABS: Alanine Aminotransferase < 9 U/L (7-40); Chloride 88 mmol/L (98-107); Sodium 128 mmol/L (136-145)
[2025-05-27 19:55] LABS: Glucose 530 mg/dL (74-106); Lactic Acid w/Reflex 3.1 mmol/L (0.4-2.0)
[2025-05-27] MEDS: SODIUM CHLORIDE 0.9% 1,800 ML IV ONE (20:12)
[2025-05-27] MEDS: InsuLIN REG 1unit/0.01ml Soln (100units/ml) IV ONE (20:22)
[2025-05-27] MEDS: ONDANSETRON HCL 4 MG/2 ML VIAL IV ONE (20:41)
[2025-05-27] MEDS: PIPERACILLIN-TAZOB 3.375GM 100 ML IV ONE (21:00)
[2025-05-27] MEDS: VANCOMYCIN 1GM/250ML KIT 250 ML IV ONE (22:31)
[2025-05-27] MEDS: PROCHLORPERAZINE EDISYLATE 5 MG/ML 2ML VIAL IV ONE (22:50)
[2025-05-28] VITALS (7 sets, daily range): BP systolic 145–150; BP diastolic 95–99; PULSE 81–100; RESP 16–20; TEMP 97–98.3; O2SAT 93–97
[2025-05-28] MEDS ORDERED: SODIUM CHLORIDE 0.9% 1,000 ML IV SCH ×4 (02:45→08:45)
[2025-05-28] MEDS ORDERED: INSULIN DRIP 100 UNIT/100ML 100 ML IV SCH (02:45)
[2025-05-28] MEDS ORDERED: INSULIN LANTUS (GLARGINE) 1 /0.01ml (100units/ml) SC ONE (02:45)
[2025-05-28] MEDS ORDERED: MORPHINE SULFATE INJ 2 MG/ml SYRG IV PRN (02:45)
[2025-05-28] MEDS ORDERED: DEXTROSE (50%) 50ML SYRG IV PRN ×2 (02:45→03:45)
--- NOTE | 2025-05-28 03:08 | DVHHPRES ---
History of Present Illness Resident Creating Document: CHULA CROWDER History of Present Illness Astrid Ochoa is a 54-year-old female patient who presents to ED with chief complaint of nausea and vomiting with nonbloody emesis (food content) which started two days ago. Per patient she has been hospitalized multiple times due to gastroparesis for the past six months since she has been off of her insulin pump. Patient is having problems with her injectable insulin since she does not know what dose to administer. In a recent hospitalization she was diagnosed wi th DVT in her left lower limb, initiated on apixaban (this was her last hospitalization two weeks ago. Denies fever, chills in any other associated symptoms. Her PCP is Dr. 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 Denies current tobacco, alcohol and other drug abuse Allergies: Denies Home medication: Insulin, tacrolimus, mycophenolate, prednisone, Eliquis, aspirin, atorvastatin, clopidogrel, metoprolol Patient seen and examined at bedside. Currently her nausea has improved. Patient admitted for further evaluation. Past Medical History Per HPI Past Surgical History Per HPI Family History Per HPI Past Social History Per HPI Review of Systems Review of Systems Per HPI Allergies: Coded Allergies: NO KNOWN ALLERGIES (Unverified , 10/21/13) Medications Current Medications Medications Dose Ordered Sig/Dottie Route Start Time Stop Time Status Last Admin Dose Admin Acetaminophen 325 mg Q4HP PRN PO 05/28/25 02:45 UNV Ondansetron HCl 4 mg Q4HP PRN IV 05/28/25 02:45 UNV Morphine Sulfate 2 mg Q4HPRN PRN IV 05/28/25 02:45 UNV Enoxaparin Sodium 40 mg DAILY SC 05/28/25 10:00 UNV Sodium Chloride 1,000 ml @ 500 mls/hr Q2H IV 05/28/25 02:45 05/28/25 06:44 UNV Sodium Chloride 1,000 ml @ 250 mls/hr Q4H IV 05/28/25 06:45 05/28/25 08:44 UNV Sodium Chloride 1,000 ml @ 150 mls/hr Q6H40M IV 05/28/25 08:45 UNV Insulin Human (Reg)/Sodium Chloride 100 ml @ 0.5 mls/hr Q24H IV 05/28/25 02:45 UNV Dextrose 50 ml UD PRN IV 05/28/25 02:45 UNV Diagnostic Test (Pha) 1 strip Q90MIN 05/28/25 03:00 UNV Insulin Glargine 15 units DAILY SC 05/29/25 10:00 UNV Sodium Chloride 1,000 ml @ 100 mls/hr Q10H IV 05/28/25 02:45 UNV Exam Vital Signs Vital Signs Date Time Temp Pulse Resp B/P (MAP) Pulse Ox O2 Delivery O2 Flow Rate FiO2 05/28/25 01:01 98.1 97 20 166/92 (116) 97 98.1 05/28/25 01:01 Room Air* 0 21 Exam Patient lying in bed, in no acute distress General: Lucid, afebrile, mucosae are dry Cardiovascular: Normal S1 and S2. Holosystolic murmur best heard in left lower sternal border intensity 4/6. No gallops or rubs Respiratory: Normal ventilation mechanics. Clear lung sounds on auscultation Abdomen: Soft, nontender, no organomegaly, normal bowel sounds MSK/skin: Mobilizes 4 limbs. Skin is dry and warm. Bilateral plantar ulcers, no discharge present. Charcot deformity of left foot Neurological: Oriented in 3 spheres. No motor no sensitive deficits. Pupils are isocoric and reactive Labs/Xrays Labs Test 05/27/25 20:35 05/27/25 20:20 05/27/25 18:56 Range/Units Lactic Acid Level 1.9 0.4-2.0 mmol/L POC Glucose 479 *H 70-106 mg/dl White Blood Count 10.3 4.4-10.8 10^3/uL Red Blood Count 4.01 4.0-5.20 10^6/uL Hemoglobin 11.1 L 12.2-16.2 g/dL Hematocrit 34.8 L 36.0-46.0 % Mean Corpuscular Volume 86.8 80.0-100.0 fL Mean Corpuscular Hemoglobin 27.7 L 28.0-32.0 pg Mean Corpuscular Hemoglobin Concent 31.9 L 32.0-36.0 g/dL Red Cell Distribution Width 17.6 H 11.8-14.3 % Platelet Count 364 140-450 10^3/uL Mean Platelet Volume 8.6 6.9-10.8 fL Neutrophils (%) (Auto) 87.3 H 37.0-80.0 % Lymphocytes (%) (Auto) 5.4 L 10.0-50.0 % Monocytes (%) (Auto) 6.8 0.0-12.0 % Eosinophils (%) (Auto) 0.1 0.0-7.0 % Basophils (%) (Auto) 0.4 0.0-2.0 % Neutrophils # (Auto) 9.0 H 1.6-8.6 10 ^3/uL Lymphocytes # (Auto) 0.6 0.4-5.4 10 ^3/uL Monocytes # (Auto) 0.7 0-1.3 10 ^3/uL Eosinophils # (Auto) 0 0-0.8 10 ^3/uL Basophils # (Auto) 0 0-0.2 10 ^3/uL Nucleated Red Blood Cells 0.0 % Sodium Level 128 L 136-145 mmol/L Potassium Level 4.3 3.5-5.1 mmol/L Chloride Level 88 L 98-107 mmol/L Carbon Dioxide Level 23 20-31 mmol/L Anion Gap 17 H 5-15 Blood Urea Nitrogen 22 9-23 mg/dL Creatinine 1.44 H 0.550-1.02 mg/dL Glomerular Filtration Rate Calc 43 >90 mL/min BUN/Creatinine Ratio 15.3 10.0-20.0 Serum Glucose 530 *H 74-106 mg/dL Calcium Level 9.8 8.7-10.4 mg/dL Total Bilirubin 0.5 0.2-1.0 mg/dL Aspartate Amino Transferase (AST) < 8 L 13-40 U/L Alanine Aminotransferase (ALT) < 9 7-40 U/L Alkaline Phosphatase 115 46-116 U/L Troponin I High Sensitivity 25 </=34 ng/L Total Protein 7.0 5.7-8.2 g/dL Albumin 3.7 3.2-4.8 g/dL Lipase 34 12-53 U/L SEPSIS Sepsis Screen Date sepsis recognized/suspect: May 28, 2025 Time Sepsis recognized/suspect: 103 Recent Procedure: No On Antibiotic Therapy: No Respiratory Rate >20: No Heart Rate >90: No Temp<36 C (96.8 F) or >38.3 C: No SBP <90 or MAP <65 mmHG: No New Acute Mental Status Change: No Is the patient on CPAP, BIPAP,: No Physician Orders Blood Culture (05/27/25 19:57) Admit (05/28/25 02:45) Code Status (05/28/25 02:45) Acetaminophen Tablet (Tylenol Tablet) (05/28/25 02:45) Ondansetron Hcl (Zofran) (05/28/25 02:45) Npo (Nothing By Mouth) Diet (05/28/25 Breakfast) Echo 2d Mode Cardiac Dop (05/28/25 02:45) Morphine Sulfate Injection (05/28/25 02:45) Enoxaparin Sodium (Lovenox) (05/28/25 10:00) Oxygen By Nasal Cannula (05/28/25 02:45) Stat Ekg For Chest Pain (05/28/25 02:45) Notify Md Of Changes From Base (05/28/25 02:45) Library Clerical Assistant For 24 Hours (05/28/25 02:45) Emergency Dysrhythmia Protocol (05/28/25 02:45) Rhythm Strips Once Every Shift (05/28/25 02:45) Insulin Drip Protocol (05/28/25 ) Sodium Chloride 0.9% (05/28/25 02:45) Sodium Chloride 0.9% (05/28/25 06:45) Sodium Chloride 0.9% (05/28/25 08:45) Insulin Drip 100 Unit/100ml (Myxredlin 1 (05/28/25 02:45) Dextrose 50% Syringe (05/28/25 02:45) Glucose Blood (Accu-Chek Comfort Curve T (05/28/25 03:00) Complete Blood Count (05/28/25 02:45) Basic Metabolic Panel (05/28/25 02:45) Phosphorus (05/28/25 02:45) Magnesium (05/28/25 02:45) Osmolality, Serum (05/28/25 02:45) Abg W/ Co-Ox (05/28/25 02:45) Basic Metabolic Panel (05/28/25 08:45) Basic Metabolic Panel (05/28/25 14:45) Basic Metabolic Panel (05/28/25 20:45) Urinalysis (05/28/25 02:45) Neurological Assessment (05/28/25 02:45) Vs/Hemodynamics .PER UNIT PROTOCOL (05/28/25 02:45) Acetone (05/28/25 02:45) Insulin Lantus (Glargine) (Lantus) (05/28/25 02:45) Insulin Lantus (Glargine) (Lantus) (05/29/25 10:00) Comprehensive Metabolic Panel (05/28/25 02:45) Vitamin D, 25-Hydroxy (05/28/25 02:45) Vitamin B12 (05/28/25 02:45) Thyroid Stimulating Hormone (05/28/25 02:45) PTPTT (05/28/25 02:45) Lipid Panel (05/28/25 02:45) Lipase (05/28/25 02:45) Lactic Acid W/ Reflex Order (05/28/25 02:45) Hemoglobin A1c (05/28/25 02:45) Drug Screen (05/28/25 02:45) Ammonia (05/28/25 02:45) Urine Bacterial Culture (05/28/25 02:45) Respiratory Culture W/ Gs (05/28/25 02:45) Chest Xray 1 View (05/28/25 02:45) Sodium Chloride 0.9% (05/28/25 02:45) Sodium Chloride 0.9% (05/28/25 02:45) Abg W/ Co-Ox (05/28/25 02:51) Vital Signs Date Time Temp Pulse Resp B/P (MAP) Pulse Ox O2 Delivery O2 Flow Rate FiO2 05/28/25 01:01 98.1 97 20 166/92 (116) 97 98.1 05/28/25 01:01 100 20 97 Room Air* 0 21 05/28/25 00:00 98.8 102 18 143/72 (95) 96 98.8 05/27/25 22:00 99.0 104 16 154/78 (103) 95 99.0 05/27/25 19:45 97.7 104 16 132/76 (94) 96 97.7 05/27/25 19:45 Room Air* 0 21 Laboratory Tests Test 05/27/25 18:56 05/27/25 20:35 Lactic Acid Level 3.1 mmol/L (0.4-2.0) *H 1.9 mmol/L (0.4-2.0) White Blood Count 10.3 10^3/uL (4.4-10.8) Medications Medications Dose Ordered Sig/Dottie Route Start Time Stop Time Status Last Admin Dose Admin Insulin Human Regular 10 units ONCE ONCE IV 05/27/25 20:00 05/27/25 20:01 DC 05/27/25 20:22 10 UNITS Ondansetron HCl 4 mg ONCE ONCE IV 05/27/25 20:30 05/27/25 20:31 DC 05/27/25 20:41 4 MG Piperacillin Sod/ Tazobactam Sod 100 ml @ 100 mls/hr ONCE ONCE IV 05/27/25 20:00 05/27/25 20:59 DC 05/27/25 21:00 100 MLS/HR Prochlorperazine Edisylate 10 mg ONCE ONCE IV 05/27/25 22:45 05/27/25 22:46 DC 05/27/25 22:50 10 MG Sodium Chloride 1,800 ml @ 1,800 mls/hr ONCE ONCE IV 05/27/25 20:00 05/27/25 20:59 DC 05/27/25 20:12 1,800 MLS/HR Assessment/Plan Assessment/Plan Sepsis probable secondary to gastroenteritis Gastroenteritis Questionable osteomyelitis of lower limbs Charcot foot Rule out aspiration pneumonia Ruled out DKA Respiratory alkalosis Hyperlacticacidemia Sepsis criteria that were met were fever, tachycardia and increased lactic acid with multiple probable sources (gastroenteritis/aspiration pneumonia/osteomyeli tis). Obtain ABG which showed no acidosis (presented respiratory alkalosis). Anion gap was increased, probably secondary to hyperlacticacidemia. Patient did not requiring insulin drip. Patient initially was on NPO for bowel rest due to nausea and vomiting. Advanced to clear liquid diet as tolerated Adjusted IV antibiotics due to history of end-stage renal disease status post kidney and pancreas transplant (pancreatic transplant failed) Currently under empiric IV antibiotic (meropenem and linezolid) Ordered resendez cultures (blood, urine, sputum and wound) Ordered wound consult and Podiatry evaluation LAINE hemodynamically mediated (VMN) History of end-stage renal disease status post kidney and pancreatic transplant Indicated IV fluids Consulted nephrology Currently discontinued tacrolimus and mycophenolate. On IV methylprednisolone Avoid nephrotoxic medication Questionable CAD - no CIARA placed HFpEF no exacerbation last echocardiogram on 03/2025 LVEF 60%, concentric LVH, biatrial enlargement, empiric diastolic relaxation, moderate TR Patient currently on triple therapy (aspirin, clopidogrel and apixaban). Evaluate need for aspirin and clopidogrel Normocytic anemia Recently diagnosed left lower limb DVT Likely due to chronic kidney disease Monitor H&H Continue with therapeutic enoxaparin Hypertension Diabetes insulin requiring-uncontrolled (hemoglobin A1c 10.8%) Probable gastroparesis Non adherence Patient has not been compliant with insulin due to lack of diabetic education. Patient previously was on insulin pump but due to insurance had to discontinued six months ago and has been hospitalized multiple occasions since then Ordered diabetic education Currently on aggressive insulin sliding scale and Lantus Goals of care discussed with patient for over18 minutes: Full code status Case discussed with Dr. Valdes, patient and nurses: Patient was admitted to telemetry, currently under IV fluids, empiric IV antibiotic (avoid nephrotoxic medication), awaiting results of culture. Tacrolimus and mycophenolate was discontinued, currently on IV methylprednisolone due to history of transplant. Patient has poor prognosis Plan discussed with: Patient, Other (Nurses) My Orders Orders - CHULA CROWDER RESIDENT Procedure Category Date Status Time Admit ADMIT 05/28/25 Transmitted 02:45 Code Status CODE 05/28/25 Transmitted 02:45 Acetaminophen Tablet PHA 05/28/25 Logged (Tylenol Tablet) 02:45 Ondansetron Hcl PHA 05/28/25 Logged (Zofran) 02:45 Npo (Nothing By DIET 05/28/25 Transmitted Mouth) Diet Breakfast Echo 2d Mode Cardiac US 05/28/25 Logged DOP 02:45 Morphine Sulfate PHA 05/28/25 Logged Injection 02:45 Enoxaparin Sodium PHA 05/28/25 Logged (Lovenox) 10:00 Oxygen By Nasal RT 05/28/25 Transmitted Cannula 02:45 Stat Ekg For Chest [facility] 05/28/25 In Process Pain 02:45 Notify Of Changes [facility] 05/28/25 In Process From Base 02:45 Library Clerical Assistant For [facility] 05/28/25 In Process 24 Hours 02:45 Emergency Dysrhythmia [facility] 05/28/25 In Process Protocol 02:45 Rhythm Strips Once [facility] 05/28/25 In Process Every Shift 02:45 Insulin Drip Protocol [facility] 05/28/25 In Process Sodium Chloride 0.9% PHA 05/28/25 Logged 02:45 Sodium Chloride 0.9% PHA 05/28/25 Logged 06:45 Sodium Chloride 0.9% PHA 05/28/25 Logged 08:45 Insulin Drip 100 PHA 05/28/25 Logged Unit/100ml (Myxredlin 02:45 Dextrose 50% Syringe PHA 05/28/25 Logged 02:45 Glucose Blood PHA 05/28/25 Logged (Accu-Chek Comfort 03:00 Complete Blood Count LAB 05/28/25 Logged 02:45 Basic Metabolic Panel LAB 05/28/25 Logged 02:45 Phosphorus LAB 05/28/25 Logged 02:45 Magnesium LAB 05/28/25 Logged 02:45 Osmolality, Serum LAB 05/28/25 Logged 02:45 Abg W/ Co-Ox RT 05/28/25 Logged 02:45 Basic Metabolic Panel LAB 05/28/25 Logged 08:45 Basic Metabolic Panel LAB 05/28/25 Logged 14:45 Basic Metabolic Panel LAB 05/28/25 Logged 20:45 Urinalysis LAB 05/28/25 Logged 02:45 Neurological DEMETRIA 05/28/25 In Process Assessment 02:45 Vs/Hemodynamics DEMETRIA 05/28/25 In Process 02:45 Acetone LAB 05/28/25 Logged 02:45 Insulin Lantus PHA 05/28/25 Logged (Glargine) (Lantus) 02:45 Insulin Lantus PHA 05/29/25 Logged (Glargine) (Lantus) 10:00 Comprehensive LAB 05/28/25 Logged Metabolic Panel 02:45 Vitamin D, 25-Hydroxy LAB 05/28/25 Logged 02:45 Vitamin B12 LAB 05/28/25 Logged 02:45 Thyroid Stimulating LAB 05/28/25 Logged Hormone 02:45 PTPTT LAB 05/28/25 Logged 02:45 Lipid Panel LAB 05/28/25 Logged 02:45 Lipase LAB 05/28/25 Logged 02:45 Lactic Acid W/ Reflex LAB 05/28/25 Logged Order 02:45 Hemoglobin A1c LAB 05/28/25 Logged 02:45 Drug Screen LAB 05/28/25 Logged 02:45 Ammonia LAB 05/28/25 Logged 02:45 Urine Bacterial JEREMIAH 05/28/25 Logged Culture 02:45 Respiratory Culture JEREMIAH 05/28/25 Logged W/ Gs 02:45 Chest Xray 1 View XY 05/28/25 Logged 02:45 Sodium Chloride 0.9% PHA 05/28/25 Logged 02:45 Sodium Chloride 0.9% PHA 05/28/25 Logged 02:45 Abg W/ Co-Ox RT 05/28/25 Logged 02:51 Date of Service: May 28, 2025 Billing Provider: PHOEBE VALDES MD Common Visit Codes: [id number] INP/OBS CARE (HIGH) Secondary Visit Codes: [id number] CARE PLAN 30 MINUTES CHULA CROWDER RESIDENT May 28, 2025 03:08
[2025-05-28] MEDS ORDERED: VANCOMYCIN PER PHARMACY 0 MG IV SCH (03:15)
[2025-05-28 03:23] LABS: Base Excess 4.4 mmol/L (-2.0-3.0)
--- NOTE | 2025-05-28 03:29 | DVH ---
CHEST RADIOGRAPH Indication: DKA Technique: Single frontal view of the chest was obtained COMPARISON: CHEST PORTABLE on DOS: 01/22/22, CXRP on DOS: 01/22/22, CHEST PORTABLE on DOS: 12/08/21, CXRP on DOS: 12/08/21, CHEST XRAY 1 VIEW on DOS: 11/11/21 FINDINGS: Lines and Tubes: None Lungs: Clear Pleura: No effusion. No pneumothorax. Cardiomediastinal contours: Unremarkable Bones: Unremarkable IMPRESSION: 1. No acute disease.
[2025-05-28] MEDS: ACCU-CHEK COMFORT CURVE STRIP VI SCH ×2 (03:31→04:23)
[2025-05-28] MEDS: INSULIN LANTUS (GLARGINE) 1 /0.01ml (100units/ml) SC ONE (03:47)
[2025-05-28] MEDS: SODIUM CHLORIDE 0.9% 1,000 ML IV ONE (03:55)
[2025-05-28] MEDS: ONDANSETRON HCL 4 MG/2 ML VIAL IV PRN (03:56)
[2025-05-28 04:19] LABS: Albumin 3.6 g/dL (3.2-4.8); Alkaline Phosphatase 102 U/L (46-116); Anion Gap 13 (5-15); BUN/Creatinine Ratio 11.4 (10.0-20.0); Blood Urea Nitrogen 13 mg/dL (9-23); Calcium 9.4 mg/dL (8.7-10.4); Carbon Dioxide 26 mmol/L (20-31); Lipase 29 U/L (12-53); Potassium 4.1 mmol/L (3.5-5.1); Total Protein 7.0 g/dL (5.7-8.2)
[2025-05-28 04:20] LABS: Bilirubin, Total 0.4 mg/dL (0.2-1.0)
[2025-05-28] MEDS: InsuLIN REG 1unit/0.01ml Soln (100units/ml) SC SCH (04:26)
[2025-05-28] MEDS: ONDANSETRON HCL 4 MG/2 ML VIAL IV ONE (04:28)
[2025-05-28 04:29] LABS: Alanine Aminotransferase < 9 U/L (7-40); Chloride 95 mmol/L (98-107); Glucose 286 mg/dL (74-106); Sodium 134 mmol/L (136-145)
[2025-05-28 05:14] LABS: Triglycerides 124 mg/dL (< 150)
[2025-05-28] MEDS: PIPERACILLIN-TAZOB 3.375GM 100 ML IV SCH (05:15)
[2025-05-28 05:16] LABS: Cholesterol 114 mg/dL (< 200); HDL Cholesterol 26 mg/dL (40-59)
[2025-05-28 07:24] LABS: Hematocrit 31.7 % (36.0-46.0); Hemoglobin 10.3 g/dL (12.2-16.2); Mean Corpuscular Hemoglobin 27.7 pg (28.0-32.0); Mean Corpuscular Volume 85.0 fL (80.0-100.0); Nucleated Red Blood Cells % 0.0 %
[2025-05-28 07:36] LABS: Calcium 9.3 mg/dL (8.7-10.4); Potassium 3.5 mmol/L (3.5-5.1)
[2025-05-28 07:37] LABS: Anion Gap 12 (5-15); Carbon Dioxide 28 mmol/L (20-31)
[2025-05-28 07:38] LABS: INR 1.05 (0.9-1.15); Partial Thromboplastin Time 21.7 SEC (24.5-34.5); Prothrombin Time 11.1 sec (9.3-11.8)
[2025-05-28 07:42] LABS: BUN/Creatinine Ratio 11.1 (10.0-20.0); Blood Urea Nitrogen 14 mg/dL (9-23)
[2025-05-28 07:43] LABS: Chloride 95 mmol/L (98-107); Glucose 251 mg/dL (74-106); Sodium 135 mmol/L (136-145)
[2025-05-28] MEDS: LISINOPRIL 5 MG TAB PO SCH (09:03)
[2025-05-28] MEDS: CLOPIDOGREL BISULFATE 75 MG TAB PO SCH (09:03)
[2025-05-28] MEDS: MEROPENEM 1GM IVPB 50 ML IV SCH (09:04)
[2025-05-28] MEDS: methylPREDNISolone SOD SUCC 40 MG/ML VL IV SCH (09:04)
[2025-05-28] MEDS: ENOXAPARIN SOD 100 MG/1 ML SYRINGE SC SCH (09:05)
[2025-05-28] MEDS ORDERED: ENOXAPARIN SOD 40 MG/0.4 ML SYRINGE SC SCH (10:00)
--- NOTE | 2025-05-28 12:04 | DVHCONRES ---
Date Seen: May 28, 2025 Resident Creating Document: HUA LAY RESIDENT Referring Physician resident VEL Reason for Consultation History of ESRD and status post kidney transplant History of Present Illness This is a 54-year-old female with past medical history of hypertension, type 1 diabetes mellitus, status post kidney transplant in 2013, gastroparesis, CAD, DVT presented to the ED with a chief complaint of nausea and vomiting for last 2 days prior to this visit.Per patient she has been hospitalized multiple times due to gastroparesis for the past six months since she has been off of her insulin pump. Patient is having problems with her injectable insulin since she does not know what dose to administer. In a recent hospitalization she was diagnosed with DVT in her left lower limb, initiated on apixaban (this was her last hospitalization two weeks ago. Denies fever, chills in any other associated symptoms. Patient was seen and examined on the bedside. She is alert & oriented x3. complaint of nausea but no vomiting since last night. no other active complaint. Past Medical History Hypertension, type 1 diabetes mellitus,, gastroparesis, CAD, DVT Past Surgical History Kidney and pancreatic transplant in 2013,, coronary angiography 2018, C- sections x2 Family History: Diabetes mellitus G8 FATHER, Allergies: Coded Allergies: NO KNOWN ALLERGIES (Unverified , 10/21/13) Home Meds Active Scripts Amoxicillin & Pot Clavulanate (AUGMENTIN TABLET) 875 Mg Tb, 875 MG PO BID for 3 Days, #6 TAB 0 Refills Prov:LAKSHMI RIGGINS MD 04/23/25 Metoclopramide Hcl (Reglan) 5 Mg Tab, 5 MG PO TIDP PRN for 7 Days, #30 TAB 0 Refills Prov:LAKSHMI RIGGINS MD 04/23/25 Guaifenesin-Codeine (Robitussin/Codeine) 10 Ml So, 5 ML PO Q6HR, #120 ML Prov:ZARINA POWELL MD 12/08/21 Azithromycin (Zithromax) 1 Gm Pow, 1 PACK PO ONCE, #1 PACK Prov:ZARINA POWELL MD 12/08/21 Reported Medications Furosemide (Furosemide) 80 Mg Tab, 1 TAB PO BID, #180 TAB 3 Refills 04/04/14 Pregabalin (Lyrica) 75 Mg Cap, 75 MG PO DAILY, CAP 04/04/14 Insulin Glargine (Lantus) 100 Units/Ml Vial, 40 UNITS SC HS, INJ 10/22/13 Insulin Lispro (Human) (Humalog) 100 Mg/Ml Inj, SC AC, INJ 10/22/13 Hydrocodone-Acetaminophen (Hydrocodone/Acetaminophen) 1 Tab Tab, 1 TAB PO BID, TAB 10/22/13 B-Complex W/ C & Folic Acid (Abigail-Ubaldo) Tab, 1 MG OR DAILY, TAB 10/22/13 Lovastatin (Lovastatin) 20 Mg Tab, 20 MG PO DAILY, TAB 10/22/13 Lisinopril (Lisinopril) 5 Mg Tab, 5 MG PO DAILY, TAB 10/22/13 Calcitriol (Calcitriol) 0.5 Mcg Cap, 0.5 MG PO 1XW, CAP 10/22/13 Sodium Hydrogenocarbonate (SODIUM BICARBONATE) 650 Mg Tb, 650 MG PO TID 10/22/13 Ferrous Sulfate (FERROUS SULFATE) 325 Mg Tb, 325 MG PO DAILY 10/22/13 Omeprazole (PRILOSEC) 20 Mg Cap, 40 MG OR DAILY, #1 CAP 10/21/13 Current Medications Current Medications Medications (Trade) Dose Ordered Sig/Dottie Route PRN Reason Start Time Stop Time Status Last Admin Acetaminophen (Tylenol Tablet) 325 mg Q4HP PRN PO MILD PAIN (1-3 PAIN SCALE) 05/28/25 02:45 Ondansetron HCl (Zofran) 4 mg Q4HP PRN IV NAUSEA / VOMITING 05/28/25 02:45 05/28/25 03:56 Morphine Sulfate 2 mg Q4HPRN PRN IV SEVERE PAIN (7-10 PAIN SCALE) 05/28/25 02:45 Enoxaparin Sodium (Lovenox) 40 mg DAILY SC 05/28/25 10:00 05/28/25 05:31 DC Sodium Chloride 1,000 ml @ 500 mls/hr Q2H IV 05/28/25 02:45 05/28/25 03:37 DC Sodium Chloride 1,000 ml @ 250 mls/hr Q4H IV 05/28/25 06:45 05/28/25 03:37 DC Sodium Chloride 1,000 ml @ 150 mls/hr Q6H40M IV 05/28/25 08:45 05/28/25 03:37 DC Insulin Human (Reg)/Sodium Chloride 100 ml @ 0.5 mls/hr Q24H IV 05/28/25 02:45 05/28/25 03:37 DC Dextrose 50 ml UD PRN IV SEE CURRENT ALGORITHM or SCALE 05/28/25 02:45 05/28/25 03:38 DC Diagnostic Test (Pha) (Accu-Chek Comfort Curve T) 1 strip Q90MIN 05/28/25 03:00 05/28/25 03:38 DC 05/28/25 03:31 Insulin Glargine (Lantus) 15 units DAILY SC 05/29/25 10:00 05/28/25 03:38 DC Sodium Chloride 1,000 ml @ 100 mls/hr Q10H IV 05/28/25 02:45 Vancomycin HCl 0 ml @ 0 mls/hr UD IV 05/28/25 03:15 05/28/25 05:31 DC Piperacillin Sod/ Tazobactam Sod 100 ml @ 25 mls/hr Q8HR IV 05/28/25 06:00 05/28/25 05:31 DC 05/28/25 05:15 Diagnostic Test (Pha) (Accu-Chek Comfort Curve T) 1 strip IQ4HR 05/28/25 04:00 05/28/25 11:54 Insulin Human Regular (InsuLIN R) IQ4HR SC 05/28/25 04:00 05/28/25 09:07 Dextrose 50 ml UD PRN IV Blood Sugar LESS THAN 60 05/28/25 03:45 Methylprednisolone Sodium Succinate (Solu Medrol) 40 mg BID IV 05/28/25 10:00 05/28/25 09:04 Meropenem 50 ml @ 17 mls/hr Q8HR IV 05/28/25 06:00 05/28/25 09:04 Linezolid 300 ml @ 150 mls/hr Q12HR IV 05/28/25 10:00 Enoxaparin Sodium (Lovenox) 70 mg Q12HR SC 05/28/25 10:00 05/28/25 09:05 Lisinopril (Zestril Tablet) 5 mg DAILY PO 05/28/25 10:00 05/28/25 09:03 Aspirin 81 mg DAILY PO 05/28/25 10:00 05/28/25 09:04 Clopidogrel Bisulfate (Plavix) 75 mg DAILY PO 05/28/25 10:00 05/28/25 09:03 Atorvastatin Calcium (Lipitor) 40 mg HS PO 05/28/25 22:00 Review of Systems Constitutional: No: Fever, Chills, Sweats, Weakness, Malaise, Other Eyes: No: Pain, Vision change, Conjunctivae inflammation, Eyelid inflammation, Other, Redness ENT: No: Ear pain, Ear discharge, Nose pain, Nose discharge, Nose congestion, Mouth pain, Mouth swelling, Throat pain, Throat swelling, Other Respiratory: Shortness of breath, improving No: Cough, Dry,Wheezing, Hemoptysis, Pleuritic Pain, Sputum, Wheezing, Other Cardiovascular: No: Chest Pain, Palpitations, Orthopnea, Paroxysmal Noc. Dyspnea, Edema, Lt Headedness, Other Gastrointestinal: Nausea, Vomiting, No Abdominal Pain, Diarrhea, Constipation, Melena, Hematochezia, Other Musculoskeletal: No: other, neck pain, shoulder pain, arm pain, back pain, hand pain, leg pain, foot pain Neurological:; No: Weakness, Numbness, Incoordination, Change in speech, Confusion, Seizures Vital Signs Vital Signs Date Time Temp Pulse Resp B/P (MAP) Pulse Ox O2 Delivery O2 Flow Rate FiO2 05/28/25 09:03 135/68 05/28/25 08:00 87 05/28/25 07:30 16 96 Room Air* 0 21 05/28/25 07:30 99.3 99.3 Physical Exam Physical examination: General Appearance: Alert, Oriented X3, Cooperative, No acute distress HEENT: Atraumatic, PERRLA, EOMI, Mucous membrane dry Respiratory: Clear to auscultation, Normal air movement Cardiovascular: Regular rate, Normal S1, Normal S2, No murmurs, no chest wall tenderness Abdominal: Normal bowel sounds, Soft, No tenderness, No hepatospenomegaly, No masses Extremities: No clubbing, No cyanosis, No edema, Normal pulses, No tenderness/swelling Skin: No rashes, No breakdown, No significant lesion Neuro: Normal speech, Strength at 5/5 X4 ext, Normal tone, Sensation intact, Cranial nerves 3-12 NL, Reflexes 2+ Psych/Mental Status: Mental status NL, Mood NL Labs/Diagnostic Data Labs Test 05/28/25 07:11 05/28/25 03:30 05/28/25 03:11 05/27/25 20:35 Range/Units White Blood Count 9.1 4.4-10.8 10^3/uL Red Blood Count 3.73 L 4.0-5.20 10^6/uL Hemoglobin 10.3 L 12.2-16.2 g/dL Hematocrit 31.7 L 36.0-46.0 % Mean Corpuscular Volume 85.0 80.0-100.0 fL Mean Corpuscular Hemoglobin 27.7 L 28.0-32.0 pg Mean Corpuscular Hemoglobin Concent 32.5 32.0-36.0 g/dL Red Cell Distribution Width 17.4 H 11.8-14.3 % Platelet Count 316 140-450 10^3/uL Mean Platelet Volume 8.2 6.9-10.8 fL Neutrophils (%) (Auto) 84.0 H 37.0-80.0 % Lymphocytes (%) (Auto) 7.2 L 10.0-50.0 % Monocytes (%) (Auto) 8.2 0.0-12.0 % Eosinophils (%) (Auto) 0.2 0.0-7.0 % Basophils (%) (Auto) 0.4 0.0-2.0 % Neutrophils # (Auto) 7.6 1.6-8.6 10 ^3/uL Lymphocytes # (Auto) 0.7 0.4-5.4 10 ^3/uL Monocytes # (Auto) 0.7 0-1.3 10 ^3/uL Eosinophils # (Auto) 0 0-0.8 10 ^3/uL Basophils # (Auto) 0 0-0.2 10 ^3/uL Nucleated Red Blood Cells 0.0 % Prothrombin Time 11.1 9.3-11.8 sec Prothrombin Time INR 1.05 0.9-1.15 Activated Partial Thromboplast Time 21.7 L 24.5-34.5 SEC Sodium Level 135 L 136-145 mmol/L Potassium Level 3.5 3.5-5.1 mmol/L Chloride Level 95 L 98-107 mmol/L Carbon Dioxide Level 28 20-31 mmol/L Anion Gap 12 5-15 Blood Urea Nitrogen 14 9-23 mg/dL Creatinine 1.26 H 0.550-1.02 mg/dL Glomerular Filtration Rate Calc 51 >90 mL/min BUN/Creatinine Ratio 11.1 10.0-20.0 Serum Glucose 251 H 74-106 mg/dL Calcium Level 9.3 8.7-10.4 mg/dL Beta-Hydroxybutyric Acid 0.152 < 0.4 mmol/L Hemoglobin A1c 10.8 H <5.7 % A1C Total Bilirubin 0.4 0.2-1.0 mg/dL Aspartate Amino Transferase (AST) < 8 L 13-40 U/L Alanine Aminotransferase (ALT) < 9 7-40 U/L Alkaline Phosphatase 102 46-116 U/L Ammonia < 10 L 11-32 umol/L Total Protein 7.0 5.7-8.2 g/dL Albumin 3.6 3.2-4.8 g/dL Triglycerides Level 124 < 150 mg/dL Cholesterol Level 114 < 200 mg/dL LDL Cholesterol 64 < 100 mg/dL HDL Cholesterol 26 L 40-59 mg/dL Lipase 29 12-53 U/L Vitamin B12 Level 661 211-911 pg/mL Vitamin D 25-Hydroxy 115.6 H 30.0-100 ng/mL Thyroid Stimulating Hormone (TSH) 1.42 0.55-4.78 uIU/mL Blood Gas Specimen Type Arterial Blood Gas Sample Site Right radial Blood Gas Patient Temperature 37.0 Arterial Blood Date Drawn Arterial Blood pH 7.560 *H 7.350-7.450 Arterial Blood Partial Pressure CO2 29.9 L 32.0-45.0 mmHg Arterial Blood Partial Pressure O2 147.0 H 83.0-108.0 mmHg Arterial Blood HCO3 26.2 21.0-28.0 mmol/L Arterial Blood Oxygen Saturation 98.8 H 94.0-98.0 % Arterial Blood Base Excess 4.4 H -2.0-3.0 mmol/L Arterial Blood Oxyhemoglobin 97.9 94.0-98.0 % Arterial Blood Carboxyhemoglobin 0.7 0.5-1.5 % Arterial Blood Methemoglobin 0.2 0.0-1.5 % Dashawn Test Modified Blood Gas Total Hemoglobin 11.60 L 12.0-16.0 g/dL Blood Gas Liter Flow 2.00 Blood Gas Modality Nasal cannula FiO2 % 28.0 Blood Gas Critical Value Read Back Yes Blood Gas Notified Whom lauryn Guy md Blood Gas Notified Time [id number] Blood Gas Notified By marilia Gonzalez, jt Lactic Acid Level 1.9 0.4-2.0 mmol/L Test 05/27/25 20:20 05/27/25 18:56 Range/Units POC Glucose 479 *H 70-106 mg/dl Troponin I High Sensitivity 25 </=34 ng/L Assessment Assessment and plan: # LAINE likely prerenal, hemodynamically mediated/VMN # uncontrolled type 2 diabetes mellitus, hemoglobin A1c 10.8 # Essential hypertension # status post live related kidney transplant from her brother on immunosup pressive therapy, [facility] 2013 # Acute gastroenteritis likely viral/ bacterial # sepsis due to above # possible gastroparesis # History of DVT of left lower extremity Plan: - consistent carbohydrate diet, 1800 ADA diet - Resumed immunosuppressive therapy with prednisone, tacrolimus and mycophenolate mofetil - check tacrolimus trough level - check urinalysis urine electrolytes and protein excretion - check kidney transplant ultrasound - IV normal saline at 100 mL/hours - Continue Lantus 15 units and aggressive sliding scale - continue antihypertensive for optimize control of blood pressure - other management as per primary - monitor BMP - strict I&Os - avoid nephrotoxic medication Patient seen and examined by myself on rounds with the medicine resident. I agree with her assessment and plan Thank you so much for the opportunity to consult on your patient. team will follow the patient. In case of any questions or concerns please feel free to reach out. Plan discussed with .The patient and caregiver team agreed to the plan. Plan discussed with: Patient, Other (RN) HUA LAY May 28, 2025 12:03 ARTHUR BRAN MD May 28, 2025 17:05
[2025-05-28 15:03] LABS: Amphetamine Screen, Urine Neg (NEGATIVE); Barbiturate Scree,Urine Neg (NEGATIVE); Benzodiazephine Screen, Urine Neg (NEGATIVE); Cannabinoid Screen, Urine Neg (NEGATIVE); Cocaine Screen, Urine Neg (NEGATIVE); Opiate Scree,Urine Neg (NEGATIVE); Phencyclidine Screen, Urine Neg (NEGATIVE)
--- NOTE | 2025-05-28 18:56 | DVH ---
INDICATION: RENAL TRANSPLANT FUNCTION TECHNIQUE: Multiple real-time sonographic images of the kidneys and bladder were obtained. Duplex Doppler evaluation including color Doppler and spectral/pulsed waveform analysis of the bilate ral renal arteries was performed. COMPARISON: US RENAL TRANSPLANT on DOS: 04/19/25, US RENAL TRANSPLANT on DOS: 12/20/24 FINDINGS: LEFT KIDNEY MEASURES 12 CM. EDV: 5 CM/SEC (< 35 CM/SEC EQUALS NORMAL) PSV: 17 CM/SEC (<190 CM/SEC EQUALS NORMAL) EDV/PSV: 0.2 CM/SEC; (>0.2=NORMAL) RI 0.83 (< 0.70= NORMAL) ALLOGRAFT KIDNEY RAR 2.0 (< 3.5, normal) IMPRESSION: 1. No findings to suggest renal artery stenosis. *Danilo Landin Techniques in Noninvasive Vascular Diagnosis 2002
[2025-05-28 19:32] LABS: Urine Amorphous Crystal FEW /hpf (None Seen); Urine Protein, UAD 1+ (Negative)
[2025-05-28 19:36] LABS: Protein, Urine 77.9 mg/dL (1-14)
[2025-05-28] MEDS: TACROLIMUS 1 MG CAP PO SCH (21:57)
[2025-05-28] MEDS: MYCOPHENOLATE 500 MG TAB PO SCH (21:58)
[2025-05-28] MEDS: APIXABAN 5 MG TAB PO SCH (21:58)
[2025-05-28] MEDS: ATORVASTATIN 20 MG TAB PO SCH (21:58)
[2025-05-28] MEDS: LINEZOLID 600MG/300ML 300 ML IV SCH (21:59)
[2025-05-29] VITALS (10 sets, daily range): BP systolic 138–189; BP diastolic 83–108; PULSE 85–106; RESP 16–22; TEMP 96–98.3; O2SAT 95–98
[2025-05-29] MEDS: ACETAMINOPHEN 325 MG TAB PO PRN (01:14)
[2025-05-29] MEDS: hydrALAZINE HCL 20 MG/ML VL IV ONE (05:37)
[2025-05-29 07:12] LABS: Calcium 10.0 mg/dL (8.7-10.4); Potassium 4.9 mmol/L (3.5-5.1)
[2025-05-29 07:13] LABS: Anion Gap 14 (5-15); Carbon Dioxide 25 mmol/L (20-31)
[2025-05-29 07:18] LABS: BUN/Creatinine Ratio 12.5 (10.0-20.0); Blood Urea Nitrogen 14 mg/dL (9-23)
[2025-05-29 07:19] LABS: Chloride 91 mmol/L (98-107); Glucose 286 mg/dL (74-106); Sodium 130 mmol/L (136-145)
[2025-05-29] MEDS ORDERED: DEXTROSE (50%) 50ML SYRG IV PRN (08:30)
[2025-05-29] MEDS: PANTOPRAZOLE 40 MG/10 ML VIAL INJ IV ONE (09:15)
[2025-05-29] MEDS: INSULIN LANTUS (GLARGINE) 1 /0.01ml (100units/ml) SC SCH (10:00)
[2025-05-29] MEDS ORDERED: INSULIN LANTUS (GLARGINE) 1 /0.01ml (100units/ml) SC SCH (10:00)
[2025-05-29] MEDS: SODIUM CHLORIDE 0.9% 1,000 ML IV SCH (10:30)
--- NOTE | 2025-05-29 10:33 | DVHPN2 ---
Progress Note Date Seen: May 29, 2025 Resident Creating Document: HUA LAY RESIDENT Medical Necessity Reason Pt with a Central, PICC or Fol: Yes Subjective Review of Systems Patient was seen and examined on the bedside. She is alert & oriented x3. complaint of acid reflux and 1 episodes of vomiting since morning. Other Systems: Patient seen and examined by myself today on rounds with the medicine resident, I agree with her assessment and plan Objective vital signs Vital Sign Date Time Temp Pulse Resp B/P (MAP) Pulse Ox O2 Delivery O2 Flow Rate FiO2 05/29/25 09:00 96.0 92 20 151/97 (115) 97 96.0 05/28/25 20:00 Room Air* 0 21 Total Intake and Output 05/28/25 05/28/25 05/29/25 15:00 23:00 07:00 Intake Total 360 ml 900 ml Output Total 600 ml 850 ml Balance -240 ml 50 ml medications Current Medications Medications Dose Ordered Sig/Dottie Route Start Time Stop Time Status Last Admin Dose Admin Acetaminophen 325 mg Q4HP PRN PO 05/28/25 02:45 05/29/25 01:14 325 MG Ondansetron HCl 4 mg Q4HP PRN IV 05/28/25 02:45 05/28/25 03:56 4 MG Morphine Sulfate 2 mg Q4HPRN PRN IV 05/28/25 02:45 Meropenem 50 ml @ 17 mls/hr Q8HR IV 05/28/25 06:00 05/29/25 00:38 17 MLS/HR Linezolid 300 ml @ 150 mls/hr Q12HR IV 05/28/25 10:00 05/28/25 22:31 150 MLS/HR Lisinopril 5 mg DAILY PO 05/28/25 10:00 05/28/25 09:03 5 MG Aspirin 81 mg DAILY PO 05/28/25 10:00 05/28/25 09:04 81 MG Clopidogrel Bisulfate 75 mg DAILY PO 05/28/25 10:00 05/28/25 09:03 75 MG Atorvastatin Calcium 40 mg HS PO 05/28/25 22:00 05/28/25 21:58 40 MG Tacrolimus 4 mg BID PO 05/28/25 22:00 05/28/25 21:57 4 MG Prednisone 5 mg DAILY PO 05/28/25 22:00 Mycophenolate Mofetil 500 mg BID PO 05/28/25 22:00 05/28/25 21:58 500 MG Apixaban 5 mg BID PO 05/28/25 22:00 05/28/25 21:58 5 MG Insulin Glargine 15 units DAILY@1000 SC 05/29/25 10:00 Diagnostic Test (Pha) 1 strip IQ4HR 05/29/25 12:00 Insulin Human Regular IQ4HR SC 05/29/25 12:00 Dextrose 50 ml UD PRN IV 05/29/25 08:30 Pantoprazole Sodium 40 mg DAILY@0600 PO 05/30/25 06:00 Sodium Chloride 1,000 ml @ 100 mls/hr Q10H IV 05/29/25 10:30 UNV Examination Physical examination: General Appearance: Alert, Oriented X3, Cooperative, No acute distress HEENT: Atraumatic, PERRLA, EOMI, Mucous membrane dry Respiratory: Clear to auscultation, Normal air movement Cardiovascular: Regular rate, Normal S1, Normal S2, No murmurs, no chest wall tenderness Abdominal: Normal bowel sounds, Soft, No tenderness, No hepatospenomegaly, No masses Extremities: No clubbing, No cyanosis, No edema, Normal pulses, No tenderness/swelling Skin: No rashes, No breakdown, No significant lesion Neuro: Normal speech, Strength at 5/5 X4 ext, Normal tone, Sensation intact, Cranial nerves 3-12 NL, Reflexes 2+ Psych/Mental Status: Mental status NL, Mood NL Examination: LUNGS:Normal, CVS:Normal, MSK:Normal laboratory and microbiology Laboratory Tests 05/29/25 05:09 05/28/25 07:11 Test 05/29/25 05:09 Range/Units Serum Glucose 286 H 74-106 mg/dL Microbiology Date/Time Source Procedure Growth Status 05/28/25 14:34 Voided Urine Urine Culture - Preliminary Resulted 05/27/25 20:35 Blood Blood Culture - Preliminary NO GROWTH AFTER 24 HOURS OF INCUBATION. Resulted Labs and/or images reviewed: Labs reviewed by me, Image(s) reviewed by me Problem List/Assessment/Plan Problem List/Assessment/Plan Assessment and plan: # LAINE likely prerenal, hemodynamically mediated/VMN # uncontrolled type 2 diabetes mellitus, hemoglobin A1c 10.8 # Pseudohyponatremia due to hyperglycemia # Essential hypertension # status post live related kidney transplant from her brother on immunosuppressive therapy, [facility] 2013 # Acute gastroenteritis likely viral/ bacterial # sepsis due to above # possible gastroparesis # History of DVT of left lower extremity Plan: - consistent carbohydrate diet, 1800 ADA diet - Resumed immunosuppressive therapy with prednisone, tacrolimus and mycophenolate mofetil - check tacrolimus trough level - Corrected sodium is 134 - FENa 1.1% with moderate proteinuria - kidney transplant ultrasound revealed normal study - IV normal saline at 100 mL/hours - Continue Lantus 15 units and moderate sliding scale - continue antihypertensive for optimize control of blood pressure - other management as per primary - monitor BMP - strict I&Os - avoid nephrotoxic medication Total Care time 25 minutes Thank you so much for the opportunity to consult on your patient. team will follow the patient. In case of any questions or concerns please feel free to reach out. Plan discussed with .The patient and caregiver team agreed to the plan. Plan discussed with: Patient, Other (RN) My Orders My Orders Orders - HUA LAY Procedure Category Date Status Time Insulin Lantus PHA 05/29/25 In Process (Glargine) (Lantus) 10:00 Glucose Blood PHA 05/29/25 In Process (Accu-Chek Comfort 12:00 Insulin R (Human) PHA 05/29/25 In Process (Insulin R) 12:00 Dextrose 50% Syringe PHA 05/29/25 In Process 08:30 Pantoprazole Tablet PHA 05/30/25 In Process (Protonix Tablet) 06:00 Consistent DIET 05/29/25 Transmitted Carb(Ccho)Diabetes Lunch Sodium Chloride 0.9% PHA 05/29/25 Logged 10:30 HUA LAY May 29, 2025 10:33 ARTHUR BRAN MD May 29, 2025 14:23
[2025-05-29] MEDS: ACCU-CHEK COMFORT CURVE STRIP VI SCH (12:00)
[2025-05-29] MEDS: InsuLIN REG 1unit/0.01ml Soln (100units/ml) SC SCH (12:00)
--- NOTE | 2025-05-29 16:47 | DVHPN2 ---
Subjective Patient was seen and evaluated by me currently tolerating diet. 50% better. Patient denies any nausea vomiting. Changes from previous H/P or p: No Changes Objective Vitals Vital Signs Date Time Temp Pulse Resp B/P (MAP) Pulse Ox O2 Delivery O2 Flow Rate FiO2 05/29/25 12:43 98.1 89 22 142/99 (113) 98 98.1 05/29/25 08:00 Room Air* 0 21 Intake/Output Intake and Output 05/29/25 07:00 Intake Total 1260 ml Output Total 1450 ml Balance -190 ml Intake Oral 960 ml IV Total 300 ml Output Urine Total 1450 ml Exam HEENT pupils are reactive Neck is supple CV is S1-S2 regular rate and rhythm Respiratory diminished breath sound bases GI posterior bowel sound Extremity no edema REGULATORY CONSULTANT no motor deficit Medications Current Medications Medications Dose Ordered Sig/Dottie Route Start Time Stop Time Status Last Admin Dose Admin Acetaminophen 325 mg Q4HP PRN PO 05/28/25 02:45 05/29/25 01:14 325 MG Ondansetron HCl 4 mg Q4HP PRN IV 05/28/25 02:45 05/28/25 03:56 4 MG Morphine Sulfate 2 mg Q4HPRN PRN IV 05/28/25 02:45 Meropenem 50 ml @ 17 mls/hr Q8HR IV 05/28/25 06:00 05/29/25 00:38 17 MLS/HR Linezolid 300 ml @ 150 mls/hr Q12HR IV 05/28/25 10:00 05/28/25 22:31 150 MLS/HR Lisinopril 5 mg DAILY PO 05/28/25 10:00 05/29/25 10:00 5 MG Aspirin 81 mg DAILY PO 05/28/25 10:00 05/29/25 10:00 81 MG Clopidogrel Bisulfate 75 mg DAILY PO 05/28/25 10:00 05/29/25 10:00 75 MG Atorvastatin Calcium 40 mg HS PO 05/28/25 22:00 05/28/25 21:58 40 MG Tacrolimus 4 mg BID PO 05/28/25 22:00 05/29/25 10:00 4 MG Prednisone 5 mg DAILY PO 05/28/25 22:00 05/29/25 10:00 5 MG Mycophenolate Mofetil 500 mg BID PO 05/28/25 22:00 05/29/25 10:00 500 MG Apixaban 5 mg BID PO 05/28/25 22:00 05/29/25 10:00 5 MG Insulin Glargine 15 units DAILY@1000 SC 05/29/25 10:00 05/29/25 10:00 15 UNITS Diagnostic Test (Pha) 1 strip IQ4HR 05/29/25 12:00 05/29/25 12:00 1 STRIP Insulin Human Regular IQ4HR SC 05/29/25 12:00 05/29/25 12:00 9 UNITS Dextrose 50 ml UD PRN IV 05/29/25 08:30 Pantoprazole Sodium 40 mg DAILY@0600 PO 05/30/25 06:00 Sodium Chloride 1,000 ml @ 100 mls/hr Q10H IV 05/29/25 10:30 05/29/25 10:30 100 MLS/HR Al Hydrox/Mg Hydrox/Simethicone 15 ml Q8HP PRN GT 05/29/25 12:30 Laboratory Results Laboratory Tests 05/28/25 07:11 05/29/25 05:09 Chemistry Test 05/29/25 05:09 Calcium Level 10.0 mg/dL (8.7-10.4) Urinalysis Test 05/28/25 18:33 Urine Color Colorless (Yellow) Urine Clarity Turbid (Clear) H Urine pH 6.5 (5.0-9.0) Urine Specific [place] 1.013 (1.001-1.035) Urine Protein 1+ (Negative) H Urine Ketones 1+ (Negative) H Urine Blood 2+ /uL (Negative) H Urine Nitrite Negative (Negative) Urine Bilirubin Negative (Negative) Urine Urobilinogen Normal mg/dL (Negative) Urine Leukocyte Esterase 3+ /uL (Negative) Urine RBC 134 /hpf (0 - 4) Urine Microscopic WBC 220 /HPF (0-5) H Urine Squamous Epithelial Cells Few /hpf (<5) Urine Amorphous Crystals Few /hpf (None Seen) Urine Bacteria None seen /hpf (None Seen) Urine Creatinine 62.49 mg/dL (30.0-125.0) Urine Protein/Creatinine Ratio 1.25 Urine Sodium 79 mmol/L (40-220) Urine Glucose 1+ mg/dL (Normal) H Urine Total Protein 77.9 mg/dL (1-14) H Microbiology Microbiology Date/Time Source Procedure Growth Status 05/28/25 18:30 Nose MRSA Screen - Final Methicillin Resistant S.aureus Complete 05/28/25 14:34 Voided Urine Urine Culture - Preliminary Resulted 05/27/25 20:35 Blood Blood Culture - Preliminary NO GROWTH AFTER 24 HOURS OF INCUBATION. Resulted Assessment/Plan Assessment/Plan 54-year-old female with a known history of e status post renal transplant, hypertension, congestive heart failure, who initially presented to the hospital with the nausea vomiting found to have 1. Acute kidney injury suspected secondary to vasomotor nephropathy 2. Status post renal transplant 3. Hypertension 4. Nausea vomiting resolved 5. Episode of fever suspected gastroenteritis, no evidence of sepsis as blood cultures are negative to date 6. Hyperglycemia in the setting of diabetes mellitus type 2 -continue IV fluids, diet as tolerated, resume home dose of Lantus, resume immunosuppressants. n Plan discussed with: Patient My Orders Orders - EDWIN MCMANUS MD Procedure Category Date Status Time Alum & Mag PHA 05/29/25 In Process Hydrox-Simethicone 12:30 Date of Service: May 29, 2025 Billing Provider: EDWIN MCMANUS MD Common Visit Codes: [id number] INP/OBS CARE(MOD) EDWIN MCMANUS MD May 29, 2025 16:47
[2025-05-29] MEDS: SPIRONOLACTONE 25 MG TAB PO ONE (17:15)
[2025-05-29] MEDS ORDERED: METOCLOPRAMIDE HCL 10 MG TAB PO PRN (17:15)
[2025-05-29] MEDS: MAALOX PLUS or MAALOX 30 ML GT PRN (20:58)
[2025-05-29] MEDS: METOPROLOL TARTRATE 25 MG TAB PO SCH (22:10)
[2025-05-29] MEDS: TACROLIMUS 1 MG CAP PO SCH (22:24)
[2025-05-30] VITALS (9 sets, daily range): BP systolic 128–147; BP diastolic 76–91; PULSE 68–82; RESP 14–16; TEMP 97.8–98.2; O2SAT 95–98
[2025-05-30] MEDS: PANTOPRAZOLE 40 MG TAB PO SCH (06:16)
[2025-05-30 07:45] LABS: Potassium 3.5 mmol/L (3.5-5.1)
[2025-05-30 07:46] LABS: Anion Gap 9 (5-15); Calcium 8.8 mg/dL (8.7-10.4); Carbon Dioxide 26 mmol/L (20-31)
[2025-05-30 07:51] LABS: BUN/Creatinine Ratio 11.9 (10.0-20.0); Blood Urea Nitrogen 13 mg/dL (9-23)
[2025-05-30 07:52] LABS: Chloride 97 mmol/L (98-107); Glucose 241 mg/dL (74-106); Sodium 132 mmol/L (136-145)
--- NOTE | 2025-05-30 11:18 | DVHPN2 ---
Progress Note Date Seen: May 30, 2025 Medical Necessity Reason Pt with a Central, PICC or Fol: Yes Subjective Patient reports: No new complaints Other Systems: Patient seen and examined by myself today in follow-up Objective vital signs Vital Sign Date Time Temp Pulse Resp B/P (MAP) Pulse Ox O2 Delivery O2 Flow Rate FiO2 05/30/25 09:00 97.8 80 16 145/83 (103) 96 97.8 05/30/25 08:12 Room Air* 0 21 Total Intake and Output 05/29/25 05/29/25 05/30/25 15:00 23:00 07:00 Intake Total 1180 ml 960 ml Output Total 400 ml 180 ml Balance 780 ml 780 ml medications Current Medications Medications Dose Ordered Sig/Dottie Route Start Time Stop Time Status Last Admin Dose Admin Acetaminophen 325 mg Q4HP PRN PO 05/28/25 02:45 05/29/25 01:14 325 MG Ondansetron HCl 4 mg Q4HP PRN IV 05/28/25 02:45 05/28/25 03:56 4 MG Morphine Sulfate 2 mg Q4HPRN PRN IV 05/28/25 02:45 Meropenem 50 ml @ 17 mls/hr Q8HR IV 05/28/25 06:00 05/30/25 06:16 17 MLS/HR Linezolid 300 ml @ 150 mls/hr Q12HR IV 05/28/25 10:00 05/30/25 09:18 150 MLS/HR Lisinopril 5 mg DAILY PO 05/28/25 10:00 05/30/25 08:58 5 MG Aspirin 81 mg DAILY PO 05/28/25 10:00 05/30/25 08:58 81 MG Clopidogrel Bisulfate 75 mg DAILY PO 05/28/25 10:00 05/30/25 08:58 75 MG Atorvastatin Calcium 40 mg HS PO 05/28/25 22:00 05/29/25 22:09 40 MG Prednisone 5 mg DAILY PO 05/28/25 22:00 05/30/25 08:58 5 MG Mycophenolate Mofetil 500 mg BID PO 05/28/25 22:00 05/30/25 09:18 500 MG Apixaban 5 mg BID PO 05/28/25 22:00 05/30/25 08:58 5 MG Insulin Glargine 15 units DAILY@1000 SC 10/9/25 10:00 05/30/25 09:06 15 UNITS Diagnostic Test (Pha) 1 strip IQ4HR 05/29/25 12:00 05/30/25 08:13 1 STRIP Insulin Human Regular IQ4HR SC 05/29/25 12:00 05/30/25 09:07 9 UNITS Dextrose 50 ml UD PRN IV 05/29/25 08:30 Pantoprazole Sodium 40 mg DAILY@0600 PO 05/30/25 06:00 05/30/25 06:16 40 MG Sodium Chloride 1,000 ml @ 100 mls/hr Q10H IV 05/29/25 10:30 05/29/25 22:08 100 MLS/HR Al Hydrox/Mg Hydrox/Simethicone 15 ml Q8HP PRN GT 05/29/25 12:30 05/29/25 20:58 15 ML Metoclopramide HCl 5 mg Q8HP PRN PO 05/29/25 17:15 Tacrolimus 2 mg BID PO 05/29/25 22:00 05/30/25 09:00 2 MG Metoprolol Tartrate 25 mg BID PO 05/29/25 22:00 05/30/25 08:59 25 MG Examination: LUNGS:Normal, CVS:Normal, MSK:Normal laboratory and microbiology Laboratory Tests 05/30/25 07:10 05/28/25 07:11 Test 05/30/25 07:10 Range/Units Serum Glucose 241 H 74-106 mg/dL Microbiology Date/Time Source Procedure Growth Status 05/28/25 18:30 Nose MRSA Screen - Final Methicillin Resistant S.aureus Complete 05/28/25 14:34 Voided Urine Urine Culture - Preliminary Resulted 05/27/25 20:35 Blood Blood Culture - Preliminary NO GROWTH AFTER 48 HOURS OF INCUBATION. 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
--- NOTE | 2025-05-30 11:57 | DVHCONRES ---
Date Seen: May 30, 2025 Reason for Consultation Right foot wound History of Present Illness Astrid Ochoa is a 54-year-old female patient who presents to ED with chief complaint of nausea and vomiting with nonbloody emesis (food content) which started two days ago. Per patient she has been hospitalized multiple times due to gastroparesis for the past six months since she has been off of her insulin pump. Patient is having problems with her injectable insulin since she does not know what dose to administer. In a recent hospitalization she was diagnosed with DVT in her left lower limb, initiated on apixaban (this was her last hospitalization two weeks ago. Denies fever, chills in any other associated symptoms. Her PCP is Dr. Graves Past Medical History See H&P Past Surgical History See H&P Family History: Diabetes mellitus G8 FATHER, FH: heart attack G8 FATHER, FH: stroke G8 MOTHER FHx: seizures G8 MOTHER Allergies: Coded Allergies: NO KNOWN ALLERGIES (Unverified , 10/21/13) Home Meds Active Scripts Amoxicillin & Pot Clavulanate (AUGMENTIN TABLET) 875 Mg Tb, 875 MG PO BID for 3 Days, #6 TAB 0 Refills Prov:LAKSHMI RIGGINS MD 04/23/25 Metoclopramide Hcl (Reglan) 5 Mg Tab, 5 MG PO TIDP PRN for 7 Days, #30 TAB 0 Ref ills Prov:LAKSHMI RIGGINS MD 04/23/25 Guaifenesin-Codeine (Robitussin/Codeine) 10 Ml So, 5 ML PO Q6HR, #120 ML Prov:ZARINA POWELL MD 12/08/21 Azithromycin (Zithromax) 1 Gm Pow, 1 PACK PO ONCE, #1 PACK Prov:ZARINA POWELL MD 12/08/21 Reported Medications Furosemide (Furosemide) 80 Mg Tab, 1 TAB PO BID, #180 TAB 3 Refills 04/04/14 Pregabalin (Lyrica) 75 Mg Cap, 75 MG PO DAILY, CAP 04/04/14 Insulin Glargine (Lantus) 100 Units/Ml Vial, 40 UNITS SC HS, INJ 10/22/13 Insulin Lispro (Human) (Humalog) 100 Mg/Ml Inj, SC AC, INJ 10/22/13 Hydrocodone-Acetaminophen (Hydrocodone/Acetaminophen) 1 Tab Tab, 1 TAB PO BID, TAB 10/22/13 B-Complex W/ C & Folic Acid (Abigail-Ubaldo) Tab, 1 MG OR DAILY, TAB 10/22/13 Lovastatin (Lovastatin) 20 Mg Tab, 20 MG PO DAILY, TAB 10/22/13 Lisinopril (Lisinopril) 5 Mg Tab, 5 MG PO DAILY, TAB 10/22/13 Calcitriol (Calcitriol) 0.5 Mcg Cap, 0.5 MG PO 1XW, CAP 10/22/13 Sodium Hydrogenocarbonate (SODIUM BICARBONATE) 650 Mg Tb, 650 MG PO TID 10/22/13 Ferrous Sulfate (FERROUS SULFATE) 325 Mg Tb, 325 MG PO DAILY 10/22/13 Omeprazole (PRILOSEC) 20 Mg Cap, 40 MG OR DAILY, #1 CAP 10/21/13 Current Medications Current Medications Medications (Trade) Dose Ordered Sig/Dottie Route PRN Reason Start Time Stop Time Status Last Admin Diagnostic Test (Pha) (Accu-Chek Comfort Curve T) 1 strip IQ4HR 05/29/25 12:00 05/30/25 08:13 Insulin Human Regular (InsuLIN R) IQ4HR SC 05/29/25 12:00 05/30/25 09:07 Pantoprazole Sodium (Protonix Tablet) 40 mg DAILY@0600 PO 05/30/25 06:00 05/30/25 06:16 Al Hydrox/Mg Hydrox/Simethicone (Maalox Plus) 15 ml Q8HP PRN GT FOR STOMACH DISTRESS 05/29/25 12:30 05/29/25 20:58 Metoclopramide HCl (Reglan Tablet) 5 mg Q8HP PRN PO NAUSEA / VOMITING 05/29/25 17:15 Tacrolimus (Prograf) 2 mg BID PO 05/29/25 22:00 05/30/25 09:00 Metoprolol Tartrate (Lopressor Tablet) 25 mg BID PO 05/29/25 22:00 05/30/25 08:59 Vital Signs Vital Signs Date Time Temp Pulse Resp B/P (MAP) Pulse Ox O2 Delivery O2 Flow Rate FiO2 05/30/25 09:00 97.8 80 16 145/83 (103) 96 97.8 05/30/25 08:12 Room Air* 0 21 Physical Exam Dermatological: Skin is dry with mild erythema and some maceration around the wound site No gross deformities noted Mild non-pitting edema present bilaterally Right plantar foot eschar Vascular: Dorsalis pedis and posterior tibial pulses are 1+ bilaterally Capillary refill is under 2 seconds Skin temperature is warm bilaterally Neurologic: Protective sensation is absent on the plantar forefoot bilaterally Monofilament testing reveals decreased sensation in multiple plantar sites Musculoskeletal: Range of motion at the ankle and MTP joints is within normal limits. Strength is 5/5 in all tested muscle groups. Gait is antalgic due to offloading of the affected limb. Labs/Diagnostic Data Labs Test 05/30/25 08:13 05/30/25 07:10 05/29/25 05:09 05/28/25 18:33 Range/Units POC Glucose 265 H 70-106 mg/dl Sodium Level 132 L 136-145 mmol/L Potassium Level 3.5 3.5-5.1 mmol/L Chloride Level 97 L 98-107 mmol/L Carbon Dioxide Level 26 20-31 mmol/L Anion Gap 9 5-15 Blood Urea Nitrogen 13 9-23 mg/dL Creatinine 1.09 H 0.550-1.02 mg/dL Glomerular Filtration Rate Calc 61 >90 mL/min BUN/Creatinine Ratio 11.9 10.0-20.0 Serum Glucose 241 H 74-106 mg/dL Calcium Level 8.8 8.7-10.4 mg/dL Urine Color Colorless Yellow Urine Clarity Turbid H Clear Urine pH 6.5 5.0-9.0 Urine Specific [place] 1.013 1.001-1.035 Urine Protein 1+ H Negative Urine Ketones 1+ H Negative Urine Blood 2+ H Negative /uL Urine Nitrite Negative Negative Urine Bilirubin Negative Negative Urine Urobilinogen Normal Negative mg/dL Urine Leukocyte Esterase 3+ Negative /uL Urine RBC 134 0 - 4 /hpf Urine Microscopic WBC 220 H 0-5 /HPF Urine Squamous Epithelial Cells Few <5 /hpf Urine Amorphous Crystals Few None Seen /hpf Urine Bacteria None seen None Seen /hpf Urine Creatinine 62.49 30.0-125.0 mg/dL Urine Protein/Creatinine Ratio 1.25 Urine Sodium 79 40-220 mmol/L Urine Glucose 1+ H Normal mg/dL Urine Total Protein 77.9 H 1-14 mg/dL Test 05/28/25 14:34 05/28/25 07:11 05/28/25 03:30 05/28/25 03:11 Range/Units Urine Opiates Screen Neg NEGATIVE Urine Fentanyl Screen Neg NEGATIVE Urine Barbiturates Screen Neg NEGATIVE Urine Phencyclidine Screen Neg NEGATIVE Urine Amphetamines Screen Neg NEGATIVE Urine Benzodiazepines Screen Neg NEGATIVE Urine Cocaine Screen Neg NEGATIVE Urine Cannabinoids Screen Neg NEGATIVE White Blood Count 9.1 4.4-10.8 10^3/uL Red Blood Count 3.73 L 4.0-5.20 10^6/uL Hemoglobin 10.3 L 12.2-16.2 g/dL Hematocrit 31.7 L 36.0-46.0 % Mean Corpuscular Volume 85.0 80.0-100.0 fL Mean Corpuscular Hemoglobin 27.7 L 28.0-32.0 pg Mean Corpuscular Hemoglobin Concent 32.5 32.0-36.0 g/dL Red Cell Distribution Width 17.4 H 11.8-14.3 % Platelet Count 316 140-450 10^3/uL Mean Platelet Volume 8.2 6.9-10.8 fL Neutrophils (%) (Auto) 84.0 H 37.0-80.0 % Lymphocytes (%) (Auto) 7.2 L 10.0-50.0 % Monocytes (%) (Auto) 8.2 0.0-12.0 % Eosinophils (%) (Auto) 0.2 0.0-7.0 % Basophils (%) (Auto) 0.4 0.0-2.0 % Neutrophils # (Auto) 7.6 1.6-8.6 10 ^3/uL Lymphocytes # (Auto) 0.7 0.4-5.4 10 ^3/uL Monocytes # (Auto) 0.7 0-1.3 10 ^3/uL Eosinophils # (Auto) 0 0-0.8 10 ^3/uL Basophils # (Auto) 0 0-0.2 10 ^3/uL Nucleated Red Blood Cells 0.0 % Prothrombin Time 11.1 9.3-11.8 sec Prothrombin Time INR 1.05 0.9-1.15 Activated Partial Thromboplast Time 21.7 L 24.5-34.5 SEC Beta-Hydroxybutyric Acid 0.152 < 0.4 mmol/L Hemoglobin A1c 10.8 H <5.7 % A1C Total Bilirubin 0.4 0.2-1.0 mg/dL Aspartate Amino Transferase (AST) < 8 L 13-40 U/L Alanine Aminotransferase (ALT) < 9 7-40 U/L Alkaline Phosphatase 102 46-116 U/L Ammonia < 10 L 11-32 umol/L B-Type Natriuretic Peptide 148.31 0-100 pg/mL Total Protein 7.0 5.7-8.2 g/dL Albumin 3.6 3.2-4.8 g/dL Triglycerides Level 124 < 150 mg/dL Cholesterol Level 114 < 200 mg/dL LDL Cholesterol 64 < 100 mg/dL HDL Cholesterol 26 L 40-59 mg/dL Lipase 29 12-53 U/L Vitamin B12 Level 661 211-911 pg/mL Vitamin D 25-Hydroxy 115.6 H 30.0-100 ng/mL Thyroid Stimulating Hormone (TSH) 1.42 0.55-4.78 uIU/mL Parathyroid Hormone (Intact) 26.3 18.4-80.1 pg/mL Blood Gas Specimen Type Arterial Blood Gas Sample Site Right radial Blood Gas Patient Temperature 37.0 Arterial Blood Date Drawn [id number] Arterial Blood pH 7.560 *H 7.350-7.450 Arterial Blood Partial Pressure CO2 29.9 L 32.0-45.0 mmHg Arterial Blood Partial Pressure O2 147.0 H 83.0-108.0 mmHg Arterial Blood HCO3 26.2 21.0-28.0 mmol/L Arterial Blood Oxygen Saturation 98.8 H 94.0-98.0 % Arterial Blood Base Excess 4.4 H -2.0-3.0 mmol/L Arterial Blood Oxyhemoglobin 97.9 94.0-98.0 % Arterial Blood Carboxyhemoglobin 0.7 0.5-1.5 % Arterial Blood Methemoglobin 0.2 0.0-1.5 % Dashawn Test Modified Blood Gas Total Hemoglobin 11.60 L 12.0-16.0 g/dL Blood Gas Liter Flow 2.00 Blood Gas Modality Nasal cannula FiO2 % 28.0 Blood Gas Critical Value Read Back Yes Blood Gas Notified Whom lauryn Guy md Blood Gas Notified Time [id number] Blood Gas Notified By marilia Gonzalez electrician rectifier maintenance Test 05/27/25 20:35 05/27/25 18:56 Range/Units Lactic Acid Level 1.9 0.4-2.0 mmol/L Troponin I High Sensitivity 25 </=34 ng/L Microbiology Date/Time Source Procedure Growth Status 05/28/25 18:30 Nose MRSA Screen - Final Methicillin Resistant S.aureus Complete 05/28/25 14:34 Voided Urine Urine Culture - Preliminary Resulted 05/27/25 20:35 Blood Blood Culture - Preliminary NO GROWTH AFTER 48 HOURS OF INCUBATION. Resulted Problems(with codes): (1) Hyperkalemia (2) Hypochloremia (3) Acute renal disease (4) Insulin dependent diabetes mellitus (5) Splenic abscess (6) Rat bite (7) Anxiety (8) Diabetes (9) Hyperglycemia (10) Neuropathy (11) Acute bronchitis (12) Malnutrition (13) UTI (urinary tract infection) (14) Chest pain (15) Cellulitis and abscess of foot (16) Acute CHF (17) Chronic anemia (18) Foot pain, left (19) Foot pain, left (20) Cellulitis of right foot (21) Strain of foot, left (22) Strain of foot, left (23) End-stage renal disease on peritoneal dialysis (24) Penetrating foot wound (25) Eloped from emergency department (26) Charcot arthropathy of midfoot (27) Diabetes (28) Diabetes (29) Hypertension (30) acute hypoglycemia (31) acute hypoglycemic episode (32) acute hypokalemia (33) chronic renal failure (34) end-stage renal disease on peritoneal dialysis (35) possible peritonitis (36) rule out sepsis (37) Chronic kidney disease (38) Uncontrolled diabetes mellitus (39) Generalized weakness (40) Electrolyte imbalance (41) ESRD (end stage renal disease) (42) Intractable vomiting Plan/Recommendation ASSESSMENT: Patient is a 54-year-old seen on the floor for a right foot wound PLAN: - The patients chart was reviewed, clinical findings were discussed with the patient, the etiologies of the conditions were discussed in detail, and a treatment plan was agreed to at this time, with both oral and written instructions provided. - wound appears to be stable at this point - can place a Band-Aid over eschar to prevent rubbing - no surgical intervention recommended at this point - follow up with her wound provider as outpatient All questions were answered and concerns addressed to the patient's satisfaction. The patient was given the phone number to the clinic and was told how to make contact with the clinic should any concerns or questions arise. Patient understands that if any questions or concerns arise prior to the next appointment, we should be contacted immediately. FOLLOW-UP: Continue to follow while inpatient Plan discussed with: Patient Visit Coding Podiatry Date of Service if different f: May 30, 2025 Billing Provider: DAMARIS ZAYAS DPM Podiatry Common Visit Codes: CONSULT ONLY Podiatry Consult Codes: [id number] NEW/EST HI 80 DAMARIS ZAYAS DPM May 30, 2025 11:57
[2025-05-30] MEDS ORDERED: MUPI2OIN2 EX (16:20)
[2025-05-30] MEDS ORDERED: CEFD300C2 PO (16:20)
--- NOTE | 2025-05-30 16:23 | DVHDS2 ---
Discharge Summary Date of Admission May 28, 2025 at 02:45 Date of Discharge: May 30, 2025 Labs/Diagnostic Data: Laboratory Results Test 05/30/25 12:02 05/30/25 07:10 05/29/25 05:09 05/28/25 18:33 POC Glucose 244 mg/dl (70-106) Sodium Level 132 mmol/L (136-145) Potassium Level 3.5 mmol/L (3.5-5.1) Chloride Level 97 mmol/L (98-107) Carbon Dioxide Level 26 mmol/L (20-31) Anion Gap 9 (5-15) Blood Urea Nitrogen 13 mg/dL (9-23) Creatinine 1.09 mg/dL (0.550-1.02) Glomerular Filtration Rate Calc 61 mL/min (>90) BUN/Creatinine Ratio 11.9 (10.0-20.0) Serum Glucose 241 mg/dL (74-106) Calcium Level 8.8 mg/dL (8.7-10.4) Urine Color Colorless (Yellow) Urine Clarity Turbid (Clear) Urine pH 6.5 (5.0-9.0) Urine Specific [place] 1.013 (1.001-1.035) Urine Protein 1+ (Negative) Urine Ketones 1+ (Negative) Urine Blood 2+ /uL (Negative) Urine Nitrite Negative (Negative) Urine Bilirubin Negative (Negative) Urine Urobilinogen Normal mg/dL (Negative) Urine Leukocyte Esterase 3+ /uL (Negative) Urine RBC 134 /hpf (0 - 4) Urine Microscopic WBC 220 /HPF (0-5) Urine Squamous Epithelial Cells Few /hpf (<5) Urine Amorphous Crystals Few /hpf (None Seen) Urine Bacteria None seen /hpf (None Seen) Urine Creatinine 62.49 mg/dL (30.0-125.0) Urine Protein/Creatinine Ratio 1.25 Urine Sodium 79 mmol/L (40-220) Urine Glucose 1+ mg/dL (Normal) Urine Total Protein 77.9 mg/dL (1-14) Test 05/28/25 14:34 05/28/25 07:11 05/28/25 03:30 05/28/25 03:11 Urine Opiates Screen Neg (NEGATIVE) Urine Fentanyl Screen Neg (NEGATIVE) Urine Barbiturates Screen Neg (NEGATIVE) Urine Phencyclidine Screen Neg (NEGATIVE) Urine Amphetamines Screen Neg (NEGATIVE) Urine Benzodiazepines Screen Neg (NEGATIVE) Urine Cocaine Screen Neg (NEGATIVE) Urine Cannabinoids Screen Neg (NEGATIVE) White Blood Count 9.1 10^3/uL (4.4-10.8) Red Blood Count 3.73 10^6/uL (4.0-5.20) Hemoglobin 10.3 g/dL (12.2-16.2) Hematocrit 31.7 % (36.0-46.0) Mean Corpuscular Volume 85.0 fL (80.0-100.0) Mean Corpuscular Hemoglobin 27.7 pg (28.0-32.0) Mean Corpuscular Hemoglobin Concent 32.5 g/dL (32.0-36.0) Red Cell Distribution Width 17.4 % (11.8-14.3) Platelet Count 316 10^3/uL (140-450) Mean Platelet Volume 8.2 fL (6.9-10.8) Neutrophils (%) (Auto) 84.0 % (37.0-80.0) Lymphocytes (%) (Auto) 7.2 % (10.0-50.0) Monocytes (%) (Auto) 8.2 % (0.0-12.0) Eosinophils (%) (Auto) 0.2 % (0.0-7.0) Basophils (%) (Auto) 0.4 % (0.0-2.0) Neutrophils # (Auto) 7.6 10 ^3/uL (1.6-8.6) Lymphocytes # (Auto) 0.7 10 ^3/uL (0.4-5.4) Monocytes # (Auto) 0.7 10 ^3/uL (0-1.3) Eosinophils # (Auto) 0 10 ^3/uL (0-0.8) Basophils # (Auto) 0 10 ^3/uL (0-0.2) Nucleated Red Blood Cells 0.0 % Prothrombin Time 11.1 sec (9.3-11.8) Prothrombin Time INR 1.05 (0.9-1.15) Activated Partial Thromboplast Time 21.7 SEC (24.5-34.5) Beta-Hydroxybutyric Acid 0.152 mmol/L (< 0.4) Hemoglobin A1c 10.8 % A1C (<5.7) Total Bilirubin 0.4 mg/dL (0.2-1.0) Aspartate Amino Transferase (AST) < 8 U/L (13-40) Alanine Aminotransferase (ALT) < 9 U/L (7-40) Alkaline Phosphatase 102 U/L (46-116) Ammonia < 10 umol/L (11-32) B-Type Natriuretic Peptide 148.31 pg/mL (0-100) Total Protein 7.0 g/dL (5.7-8.2) Albumin 3.6 g/dL (3.2-4.8) Triglycerides Level 124 mg/dL (< 150) Cholesterol Level 114 mg/dL (< 200) LDL Cholesterol 64 mg/dL (< 100) HDL Cholesterol 26 mg/dL (40-59) Lipase 29 U/L (12-53) Vitamin B12 Level 661 pg/mL (211-911) Vitamin D 25-Hydroxy 115.6 ng/mL (30.0-100) Thyroid Stimulating Hormone (TSH) 1.42 uIU/mL (0.55-4.78) Parathyroid Hormone (Intact) 26.3 pg/mL (18.4-80.1) Blood Gas Specimen Type Arterial Blood Gas Sample Site Right radial Blood Gas Patient Temperature 37.0 Arterial Blood Date Drawn Arterial Blood pH 7.560 (7.350-7.450) Arterial Blood Partial Pressure CO2 29.9 mmHg (32.0-45.0) Arterial Blood Partial Pressure O2 147.0 mmHg (83.0-108.0) Arterial Blood HCO3 26.2 mmol/L (21.0-28.0) Arterial Blood Oxygen Saturation 98.8 % (94.0-98.0) Arterial Blood Base Excess 4.4 mmol/L (-2.0-3.0) Arterial Blood Oxyhemoglobin 97.9 % (94.0-98.0) Arterial Blood Carboxyhemoglobin 0.7 % (0.5-1.5) Arterial Blood Methemoglobin 0.2 % (0.0-1.5) Dashawn Test Modified Blood Gas Total Hemoglobin 11.60 g/dL (12.0-16.0) Blood Gas Liter Flow 2.00 Blood Gas Modality Nasal cannula FiO2 % 28.0 Blood Gas Critical Value Read Back Yes Blood Gas Notified Whom lauryn Guy md Blood Gas Notified Time [id number] Blood Gas Notified By marilia Gonzalez, ergonomics engineer Test 05/27/25 20:35 05/27/25 18:56 Lactic Acid Level 1.9 mmol/L (0.4-2.0) Troponin I High Sensitivity 25 ng/L (</=34) Other Laboratory Tests 05/30/25 07:10 05/28/25 07:11 Brief Hx & Hospital Course: 54-year-old female with a known history of e status post renal transplant, hypertension, congestive heart failure, who initially presented to the hospital with the nausea vomiting found to have suspected gastroenteritis. Patient also has a acute kidney injury suspected secondary to vasomotor nephropathy. Patient does have known history of renal transplant. Patient's blood cultures are negative to date. Patient was found to have urinary tract infection MRSA days. Patient was treated with the IV antibiotics which will be switched to p.o. antibiotics. Patient is being discharged under stable condition. Please return to ER if there is any fevers chills or any concern. Patient does have known history of DVT currently on Eliquis. Condition at Discharge: Stable Final Diagnosis/Problems List 54-year-old female with a known history of e status post renal transplant, hypertension, congestive heart failure, who initially presented to the hospital with the nausea vomiting found to have 1. Acute kidney injury suspected secondary to vasomotor nephropathy 2. Status post renal transplant 3. Hypertension 4. Nausea vomiting resolved 5. Episode of fever suspected gastroenteritis, no evidence of sepsis as blood cultures are negative to date 6. Hyperglycemia in the setting of diabetes mellitus type 7. UTI 8. MRSA nares Discharge Disposition: Home SNF Discharge Will this Physician continue t: No Discharge Instruct/Medications Diet: Cardiac 2g Na,low cholest Activity: No Restrictions, As Tolerated Follow Up/Referral: Follow up with the PCP and Nephrology in 1-2 weeks Medications: Medication as prescribed. New Medications: Cefdinir (Cefdinir) 300 Mg Cap 1 CAP PO BID, #14 CAP Mupirocin (Pseudomonas Fluores (Mupirocin) 2 % Oin 2 % EX BID, #1 OIN Continued Medications: B-Complex W/ C & Folic Acid (Abigail-Ubaldo) Tab 1 MG OR DAILY, TAB Calcitriol (Calcitriol) 0.5 Mcg Cap 0.5 MG PO 1XW, CAP Ferrous Sulfate (Ferrous Sulfate) 325 Mg Tb 325 MG PO DAILY Furosemide (Furosemide) 80 Mg Tab 1 TAB PO BID, #180 TAB 3 Refills Guaifenesin-Codeine (Robitussin/Codeine) 10 Ml So 5 ML PO Q6HR, #120 ML Hydrocodone-Acetaminophen (Hydrocodone/Acetaminophen) 1 Tab Tab 1 TAB PO BID, TAB Insulin Glargine (Lantus) 100 Units/Ml Vial 40 UNITS SC HS, INJ Insulin Lispro (Human) (Humalog) 100 Mg/Ml Inj Unknown Dose SC AC, INJ Lisinopril (Lisinopril) 5 Mg Tab 5 MG PO DAILY, TAB Lovastatin (Lovastatin) 20 Mg Tab 20 MG PO DAILY, TAB Metoclopramide Hcl (Reglan) 5 Mg Tab 5 MG PO TIDP PRN for 7 Days, #30 TAB 0 Refills Omeprazole (Prilosec) 20 Mg Cap 40 MG OR DAILY, #1 CAP Pregabalin (Lyrica) 75 Mg Cap 75 MG PO DAILY, CAP Sodium Hydrogenocarbonate (Sodium Bicarbonate) 650 Mg Tb 650 MG PO TID Discontinued Medications: Amoxicillin & Pot Clavulanate (Augmentin Tablet) 875 Mg Tb 875 MG PO BID for 3 Days, #6 TAB 0 Refills Azithromycin (Zithromax) 1 Gm Pow 1 PACK PO ONCE, #1 PACK Scheduled Amoxicillin & Pot Clavulanate (Augmentin Tablet), 875 MG PO BID Azithromycin (Zithromax), 1 PACK PO ONCE B-Complex W/ C & Folic Acid (Abigail-Ubaldo), 1 MG OR DAILY, (Reported) Calcitriol (Calcitriol), 0.5 MG PO 1XW, (Reported) Cefdinir (Cefdinir), 1 CAP PO BID Ferrous Sulfate (Ferrous Sulfate), 325 MG PO DAILY, (Reported) Furosemide (Furosemide), 1 TAB PO BID, (Reported) Guaifenesin-Codeine (Robitussin/Codeine), 5 ML PO Q6HR Hydrocodone-Acetaminophen (Hydrocodone/Acetaminophen), 1 TAB PO BID, (Reported) Insulin Glargine (Lantus), 40 UNITS SC HS, (Reported) Insulin Lispro (Human) (Humalog), Unknown Dose SC AC, (Reported) Lisinopril (Lisinopril), 5 MG PO DAILY, (Reported) Lovastatin (Lovastatin), 20 MG PO DAILY, (Reported) Mupirocin (Pseudomonas Fluores (Mupirocin), 2 % EX BID Omeprazole (Prilosec), 40 MG OR DAILY, (Reported) Pregabalin (Lyrica), 75 MG PO DAILY, (Reported) Sodium Hydrogenocarbonate (Sodium Bicarbonate), 650 MG PO TID, (Reported) Scheduled PRN Metoclopramide Hcl (Reglan), 5 MG PO TIDP PRN Discharge Statement: "Patient was advised to return to the ER or call 911 if any headaches, dizziness, shortness of breath, chest pain, abdominal pain, bleeding, fevers, or worsening of medical condition. Patient was counseled about treatment plan, medications, possible side effects, patientverbalized understanding. All questions were answered to the best of my ability. This discharge took greater then 30 minutes in planning, reviewing documentation, counseling the patient, and discussing with other team members." ASSESSMENT ASSESSMENT Assessment 54-year-old female with a known history of e status post renal transplant, hypertension, congestive heart failure, who initially presented to the hospital with the nausea vomiting found to have 1. Acute kidney injury suspected secondary to vasomotor nephropathy 2. Status post renal transplant 3. Hypertension 4. Nausea vomiting resolved 5. Episode of fever suspected gastroenteritis, no evidence of sepsis as blood cultures are negative to date 6. Hyperglycemia in the setting of diabetes mellitus type 7. UTI 8. MRSA nares Date of Service: May 30, 2025 Billing Provider: EDWIN MCMANUS MD Common Visit Codes: 79039-RLO/OBS DISCH DAY >30min EDWIN MCMANUS MD May 30, 2025 16:23
== END 2025-05-30 18:48 | disposition home or self-care (01) | DRG 371 ==
LOC: EDBD 18:33 → EDUNIT# 18:33 → ER 18:35 → OVERFLOW 05-28 02:45 → TELE-WESTW 05-28 15:04
PROVIDERS: ADMIT Internal Medicine; ATTEND Internal Medicine
DX: A04.9 Bacterial intestinal infection, unspecified (principal); N17.0 Acute kidney failure with tubular necrosis; E87.1 Hypo-osmolality and hyponatremia; E87.3 Alkalosis; N39.0 Urinary tract infection, site not specified; I13.2 Hypertensive heart and chronic kidney disease with heart failure and with stage 5 chronic kidney disease, or end stage renal disease; I50.32 Chronic diastolic (congestive) heart failure; T86.19 Other complication of kidney transplant; A08.4 Viral intestinal infection, unspecified; I25.10 Atherosclerotic heart disease of native coronary artery without angina pectoris; D64.9 Anemia, unspecified; E11.65 Type 2 diabetes mellitus with hyperglycemia; B95.62 Methicillin resistant Staphylococcus aureus infection as the cause of diseases classified elsewhere; E11.22 Type 2 diabetes mellitus with diabetic chronic kidney disease; Z79.2 Long term (current) use of antibiotics; Z90.710 Acquired absence of both cervix and uterus; Z86.718 Personal history of other venous thrombosis and embolism; Z83.3 Family history of diabetes mellitus; Z79.01 Long term (current) use of anticoagulants; Z79.4 Long term (current) use of insulin; Z98.891 History of uterine scar from previous surgery; Y84.8 Other medical procedures as the cause of abnormal reaction of the patient, or of later complication, without mention of misadventure at the time of the procedure; Y92.89 Other specified places as the place of occurrence of the external cause
CPT/HCPCS: 36415; 36600; 71045; 76776; 80048; 80053; 80061; 80197; 80307; 81001; 82010; 82140; 82306; 82570; 82607; 82805; 82962; 83036; 83605; 83690; 83880; 83970; 84156; 84300; 84443; 84484; 85025; 85610; 85730; 87040; 87081; 87086; 87088; 87186; 87205; G0378; J1815; J2185; J2405; J2543; J7507; J7517